=== PATIENT | female | born 1940 | race Caucasian/White ===

== ENCOUNTER → 2017-12-25 09:57 | Outpatient (CLI) | payer MEDICARE, OTHER, SELFPAY ==
--- NOTE | 2017-12-25 | DI.MG.S_ITS ---
BILATERAL DIGITAL SCREENING MAMMOGRAM 3D/2D WITH CAD: 12/25/2017 CLINICAL: Routine screening. Family history of breast cancer. Comparison is made to exams dated: 11/27/2016 mammogram, 11/26/2015 mammogram, and 11/24/2014 mammogram - [facility]. The tissue of both breasts is heterogeneously dense. This may lower the sensitivity of mammography. Current study was also evaluated with a Computer Aided Detection (CAD) system. Of note, per technologist the patient is unable to raise chin or turn her head for MLO views. Tomosynthesis MLO views were attempted but the patient was unable to lift their chin. 2D MLO views were subsequently obtained, with patient's chin projecting over and obscuring the axillae/upper breasts. There is possible architectural distortion in the right breast middle depth upper region seen on the mediolateral oblique view only. No other significant masses, calcifications, or other findings are seen in either breast. IMPRESSION: INCOMPLETE: NEEDS ADDITIONAL IMAGING EVALUATION The possible architectural distortion in the right breast is indeterminate. Additional views with possible ultrasound are recommended. This exam was interpreted at Station ID: [id number]. NOTE: For mammograms, a report in lay terms will be sent to the patient. Approximately 15% of breast malignancies will not be visualized mammographically. In the management of a palpable breast mass, a negative mammogram must not discourage biopsy of a clinically suspicious lesion. Electronically Signed By: Jaydon Cox M.D. ecl/:12/25/2017 23:56:00 letter sent: Additional Imaging Needed ACR BI-RADS Category 0: Incomplete 3340F
== END ==
PROVIDERS: Family Provider Family Medicine; PCP Family Medicine; Visit Provider Family Medicine
DX: Z12.31 Encounter for screening mammogram for malignant neoplasm of breast (principal); Z80.3 Family history of malignant neoplasm of breast
CPT/HCPCS: 77063; 77067

== ENCOUNTER → 2017-12-31 08:13 | Outpatient (CLI) | payer MEDICARE, OTHER, SELFPAY ==
--- NOTE | 2017-12-31 | DI.US.S_ITS ---
PROCEDURE: US RENAL COMPLETE INDICATIONS: GROSS HEMATURIA TECHNIQUE: Real-time scanning was performed of the kidneys and bladder, with image documentation. COMPARISON: None. FINDINGS: Kidneys: Right kidney measures 11.4 cm long; left kidney measures 12.1 cm long. Right renal cortical thickness is 2 cm; left renal cortical thickness is 2 cm. Renal cortical echotexture is within normal limits. No hydronephrosis. There is a nonobstructing echogenic shadowing stone in the superior pole of the right kidney measured 7-8 mm. There are 2 anechoic simple right renal cysts demonstrated measuring up to 5.4 cm and 2.2 cm. Bladder: The urinary bladder was nondistended. Miscellaneous: No free pelvic fluid. IMPRESSION: 1. No evidence of hydronephrosis. 2. Nonobstructing stone within the right kidney measuring approximately 7-8 mm. 3. Nondistention of the urinary bladder limiting evaluation. Dictated by: Suleman Lott M.D. on 12/31/2017 at 7:53 Approved by: Suleman Lott M.D. on 12/31/2017 at 7:56
== END ==
PROVIDERS: Family Provider Family Medicine; PCP Family Medicine; Visit Provider Family Medicine
DX: N20.0 Calculus of kidney (principal); N28.1 Cyst of kidney, acquired; R31.0 Gross hematuria
CPT/HCPCS: 76770

== ENCOUNTER → 2018-01-09 08:44 | Outpatient (CLI) | payer MEDICARE, OTHER, SELFPAY ==
--- NOTE | 2018-01-09 | DI.MG.S_ITS ---
UNILATERAL RIGHT DIGITAL DIAGNOSTIC MAMMOGRAM 3D/2D WITH ADDITIONAL VIEWS: 01/09/2018 CLINICAL: Additional evaluation requested from prior study. Comparison is made to exams dated: 12/25/2017 mammogram, 11/27/2016 mammogram, and 11/26/2015 mammogram - . The tissue of right breast is heterogeneously dense. This may lower the sensitivity of mammography. Previously noted possible architectural distortion in the right breast middle depth upper region seen on the mediolateral oblique view only on comparison screening mammogram resolves with additional views and likely represented superimposition of benign anatomic tissues. No significant masses, calcifications, or other findings are seen in the breast. IMPRESSION: INCOMPLETE: NEEDS ADDITIONAL IMAGING EVALUATION Previously noted possible architectural distortion in the right breast middle depth upper region seen on the mediolateral oblique view only on comparison screening mammogram resolves with additional views and likely represented superimposition of benign anatomic tissues. A targeted ultrasound is recommended for further evaluation. This exam was interpreted at Station ID: [id number]. NOTE: For mammograms, a report in lay terms will be sent to the patient. Approximately 15% of breast malignancies will not be visualized mammographically. In the management of a palpable breast mass, a negative mammogram must not discourage biopsy of a clinically suspicious lesion. Electronically Signed By: Jaydon Cox M.D. ecl/:01/09/2018 09:37:33 letter sent: Additional Imaging Needed ACR BI-RADS Category 0: Incomplete 3340F
--- NOTE | 2018-01-09 | DI.US.S_ITS ---
LIMITED ULTRASOUND OF RIGHT BREAST: 01/09/2018 CLINICAL: Patient returns today to evaluate a density in the right breast. Comparison is made to exams dated: 01/09/2018 mammogram, 12/25/2017 mammogram, 11/27/2016 mammogram, and 11/26/2015 mammogram - [facility]. Real-time and Doppler ultrasound of the right breast upper aspect were performed. Flores scale images of the real-time examination were reviewed. Targeted ultrasound was performed of the upper right breast. No underlying breast mass or abnormality is identified. IMPRESSION: NEGATIVE No sonographic mass or abnormality identified in the imaged upper right breast. There is no sonographic evidence of malignancy in the imaged right breast. Return to annual screening mammography is recommended. This exam was interpreted at Station ID: [id number]. Electronically Signed By: Jaydon Cox M.D. ecl/:01/09/2018 09:40:15 letter sent: Normal Exam Ultrasound BI-RADS: 1 Negative
== END ==
PROVIDERS: PCP Family Medicine; Visit Provider Family Medicine
DX: R92.8 Other abnormal and inconclusive findings on diagnostic imaging of breast (principal)
CPT/HCPCS: 76642; 77065; G0279

== ENCOUNTER → 2018-12-27 12:42 | Outpatient (CLI) | payer MEDICARE, OTHER, SELFPAY ==
--- NOTE | 2018-12-27 | DI.MG.S_ITS ---
BILATERAL DIGITAL SCREENING MAMMOGRAM 3D/2D WITH CAD: 12/27/2018 CLINICAL: Routine screening. Personal history of breast cancer. Comparison is made to exams dated: 01/09/2018 mammogram, 12/25/2017 mammogram, and 11/27/2016 mammogram - [facility]. The tissue of both breasts is heterogeneously dense. This may lower the sensitivity of mammography. Current study was also evaluated with a Computer Aided Detection (CAD) system. There are benign post operative findings in the left breast. No significant masses, calcifications, or other findings are seen in either breast. There has been no significant interval change. IMPRESSION: There is no mammographic evidence of malignancy. A 1 year screening mammogram is recommended. This exam was interpreted at Station ID: [id number]. NOTE: For mammograms, a report in lay terms will be sent to the patient. Approximately 15% of breast malignancies will not be visualized mammographically. In the management of a palpable breast mass, a negative mammogram must not discourage biopsy of a clinically suspicious lesion. Electronically Signed By: Monique farris/dipika:12/27/2018 14:36:14 letter sent: Normal Exam ACR BI-RADS Category 2: Benign Finding(s) 3342F
== END ==
PROVIDERS: PCP Family Medicine; Visit Provider Family Medicine
DX: Z12.31 Encounter for screening mammogram for malignant neoplasm of breast (principal); Z85.3 Personal history of malignant neoplasm of breast
CPT/HCPCS: 77063; 77067

== ENCOUNTER → 2019-01-03 11:34 | Outpatient (CLI) | payer MEDICARE, OTHER, SELFPAY ==
--- NOTE | 2019-01-03 | DI.RAD.S_ITS ---
PROCEDURE: XR KNEE RT 3V INDICATIONS: RIGHT KNEE PAIN TECHNIQUE: 3 views of the knee were acquired. COMPARISON: [facility] [place], SOHEILA, KNEE SERIES RT, 09/04/2016, 11:48. [facility], CR, KNEE 3V LEFT, 08/19/2014, 11:58. [facility], CR, KNEE 1-2 VIEWS LEFT, 05/08/2013, 23:25. FINDINGS: Bones: No definite fractures or dislocations however there is a diagonal lucency extending beneath the medial tibial plateau from near the midline medially and showing no cortical disruption at the medial metadiaphyseal junction. No suspicious bony lesions but there does appear to be a 1 cm radiodense intra-articular loose body just above the patella. On the lateral view the femoral condyle anterior cortex adjacent to this radiodensity has an unusual change in morphology from curvilinear 2 straight AP. A fracture in this area is not seen elsewhere, however.. Soft tissues: No joint effusion. No suspicious soft tissue calcifications. IMPRESSION: The clinical history does not define source of knee pain interpreted whether significant recent trauma has occurred. Presumably the findings discussed above are not patient financial representative of trauma given the absence of a joint effusion. An intra-articular loose body measuring 1 cm is in stable position above the patellar margin on the lateral view. If there is concern for a hidden fracture or ligamentous/meniscal injury followup by knee MRI may be warranted. If management of an intra-articular loose body on the right would be anticipated contrast injection MR arthrography would be the appropriate next step. Dictated by: Min Lizama M.D. on 01/03/2019 at 12:05 Approved by: Min Lizama M.D. on 01/03/2019 at 12:11
== END ==
PROVIDERS: PCP Family Medicine; Visit Provider Family Medicine
DX: M25.561 Pain in right knee (principal)
CPT/HCPCS: 73562

== ENCOUNTER 2019-03-06 10:46 | Outpatient (CLI) | payer MEDICARE, OTHER, SELFPAY | END 2019-03-06 16:00 | LOC: PHYS 10:48 | PROVIDERS: PCP Family Medicine; Visit Provider Family Medicine | DX: G62.9 Polyneuropathy, unspecified (principal); R20.0 Anesthesia of skin | CPT/HCPCS: 95885; 95886; 95911 ==

== ENCOUNTER 2019-05-06 14:15 | Outpatient (RCR) | payer MEDICARE, OTHER, SELFPAY ==
--- NOTE | 2019-03-18 16:38 | PT.OIE ---
Current Diagnoses Polyneuropathy, unspecified (03/18/19) Muscle wasting and atrophy, not elsewhere classified, unspecified hand (03/18/19) Visit Care Team Role Provider Type Gio Solis MD Attending Provider Physician Primary Care Provider Specialty: [facility] Address: [address] [place] [address], [place], [address] Email: [email or web address] Physical Therapy Initial Evaluation PT-OP-A Visit Information Start: 03/11/19 18:08 Freq: Status: Active Protocol: Document 03/18/19 13:37 LRN (Rec: 03/18/19 15:07 LRN [id number]) Out-Patient Physical Therapy Visit Information Visit Information Visit Type Initial Evaluation Visit Start Time 13:37 Visit Stop Time 14:28 Total Visit Minutes 51 Visit Number 1 Number of BREAKER LAYER Visits 0 Evaluation Information Evaluation Date 03/18/19 Precautions Precautions Breast CA - 6 yr ago with biopsy, controlled with Tamoxafin, Arthritis, Diabetes II, L TKA - 4 yrs ago, Controlled High Blood pressure , . PT-OP-B Current Condition Start: 03/11/19 18:08 Freq: Status: Active Protocol: Document 03/18/19 13:37 LRN (Rec: 03/18/19 15:07 LRN [id number]) Current Condition History of Current Condition Onset Date 3 months ago neuropathy of the hands Current Complaints Numbness of hands. Tingling in the feet since surgery of L TKA (~4 yrs ago) History of Current Condition Neuropathy of hands is worst problem than the feet. Reports she is not limited by the tingling in her feet. She has had increasing difficulty holding small objects. She is walking and she will just drop what she if holding. Prior Treatments and Tests EMG study on hands, results unknown. Treatment Goals Patient/Caregiver Goals Pt goal is to stop the dropping of things. Prior Functional Status Baseline Function- ADL's Modified Independent Baseline Function- Mobility Independent Baseline Function- Other Able to hold onto objects 6 months to a 1 yrs ago. Current Functional Impairments (Reported) Functional Limitations- ADL's Spouse puts pt's socks and shoes on. Can't get up from floor because she can't get up on knees to get up. Must use hands to transfer sit to stand. Functional Limitations- Mobility/Gait Gait with SPC, antalgic gait with short stance time on the R. Personal Factors Other Personal Factors That May Effect Spouse must assist with Therapy/Recovery donning socks and shoes. Pt reports recently being diagnosed with L carpal tunnel syndrome. PT-OP-C Subjective Start: 03/11/19 18:08 Freq: Status: Active Protocol: Document 03/18/19 13:37 LRN (Rec: 03/18/19 16:16 LRN [id number]) OP-PT Pain Assessment Pain Assessment Grid Paper Pain Assessment Grid Completed Yes Comments Pain Comments Pt notes a little pain at L hand on lateral side, rated 0/ 10. PT-OP-G Mobility & Gait Start: 03/11/19 18:08 Freq: Status: Active Protocol: Document 03/18/19 13:37 LRN (Rec: 03/18/19 15:07 LRN [id number]) OP Mobility Evaluation Transfers Sit to Stand Requires use of hands to assist. Holds R leg straight while transferring. OP Gait Assessment Gait Gait Assistance Required: Independent Distance (Feet) 100 Able to Maintain Weight Bearing Status Yes During Gait Assistive Devices Assistive Device Straight Cane Gait Deviations General Gait Pattern Antalgic,Decreased Stride Length,Flexed Trunk,Narrow Based Gait PT-OP-J Posture/Palpation/Skin Start: 03/11/19 18:08 Freq: Status: Active Protocol: Document 03/18/19 13:37 LRN (Rec: 03/18/19 15:07 LRN [id number]) Skin Assessment Other Assessments Skin Assessment Comments Pt skin is dry and scaly at knuckles. She has a bandaid around R index finger. PT-OP-K Range of Motion Start: 03/11/19 18:08 Freq: Status: Active Protocol: Document 03/18/19 13:37 LRN (Rec: 03/18/19 15:07 LRN [id number]) Elbow/Forearm Range of Motion Elbow/Forearm Left Active ROM Testing Position Sitting Pronation (degrees) 90 Supination (degrees) 45 Right Active ROM Testing Position Sitting Pronation (degrees) 90 Supination (degrees) 45 Wrist Goniometric Range of Motion Wrist Left Flexion Active (degrees) 35 Extension Active (degrees) 45 Right Flexion Active (degrees) 45 Extension Active (degrees) 45 ROM Limitations Wrist Limitations of Range of Motion Soft Tissue Tightness Finger Goniometric Range of Motion Finger ROM Limitations Finger ROM Limitations Soft Tissue Tightness,Bony Restriction Comments Flexion of MCP joints: generally 90 deg's Flexion of PIP joints: generally 45 deg's Flexion DIP joints: Variable 0 -45 deg's. Finger AD is normal except for R hand 5th digit lacks ~5 deg 's. PT-OP-M Strength Start: 03/11/19 18:08 Freq: Status: Active Protocol: Document 03/18/19 13:37 LRN (Rec: 03/18/19 16:16 LRN [id number]) Wrist Strength Wrist Manual Muscle Testing Left Flexion (C7) 5 Normal Extension (C6) 5 Normal Right Flexion (C7) 5 Normal Extension (C6) 5 Normal Finger/Thumb Strength Finger Manual Muscle Testing Right Fifth Flexion (fingers C8) 3 Fair Adduction 1 Trace Abduction (fingers T1) 2 Poor Hand Cane Cutter/Pinch Strength Hand Dominance Hand Dominance Right Hand Strength Right Cane Cutter (lbs) 23.6 Lateral Pinch (lbs) 6.7 Comments Cane Cutter with 3 trials (kg): 12, 10, 10 Lateral Pinch with index finger (kg): 3 Pt was not able to perform a pinch motion, only lateral pinch. Left Cane Cutter (lbs) 28 Lateral Pinch (lbs) 6.7 Comments Cane Cutter with 3 trials (kg): 14, 10, 14 Pinch with index finger (kg): 3 PT-OP-T Assessment and Plan Start: 03/11/19 18:08 Freq: Status: Active Protocol: Document 03/18/19 13:37 LRN (Rec: 03/18/19 15:07 [facility] [id number]) Physical Therapy Assessment Rehab Potential Rehabilitation Potential Fair Evaluation Complexity Number of Personal Factors/Comorbidities 3 or More Number of Body Systems Impaired 4 or More Clinical Presentation at Evaluation Stable Impairments Impairments ROM,Sensation,Soft Tissue Mobility,Strength Goals Decreased R hand strength Impairment Weakness of intrinsics for finger AD/AB and pinch lens generator Detention Goal (LTG) Pt will demonstrate improved intrinsic hand strength with a reported decrease in ability to hold objects while walking. LTG Duration 05/17/19 Decreased finger mobility Impairment Pt unable to make a fist to hold objects firmly Short Term Goal (STG) Pt will be able to lens generator with finger tips at mid palm rather than lower 1/3 of palm. STG Duration 04/16/18 Detention Goal (LTG) Pt will report abililty to hold objects and walk without dropping. LTG Duration 05/17/19 Two Impairment Lacks appropriate self care HEP Detention Goal (LTG) Pt will be independent with a self care HEP LTG Duration 05/17/19 Assessment Summary Assessment Pt presents with neuropathy of the hands and feet. The pt does not feel the neuropathy of the feet are limiting her functionally at this time. She does however report frustration at her inability to hold onto objects, especially with walking. She would like to focus therapy on her hands to improve ability to hold small objects and to stop dropping things. The pt will benefit from skilled physical therapy to improve hand/finger mobility and pinch lens generator, and to improve intrinsic hand strength. Physical Therapy Plan Frequency and Duration Frequency of Treatment 2x/Week Duration of Treatment 8 weeks Plan of Care Start Date 03/18/19 Plan of Care End Date 05/17/19 Therapeutic Interventions Therapeutic Interventions Home Exercise Program,Joint Mobilizations,Manual Therapy, Patient/Caregiver Education, Self-Care/Home Management,Soft Tissue Mobilization, Therapeutic Exercises Modalities Hot Packs,Paraffin Bath Next Visit Focus/Plan Next Note Type Treatment Note Next Visit Plan Assess tolerance to hot/cold, start with MH to hands and if tolerated well, try paraffin dip the following visit (if sensation to hot/cold is good) . Start finger flex ROM ex's and intrinsic & ext strengthening. Pt to have HEP to progress at home towards her goal.
--- NOTE | 2019-03-18 16:38 | PT.OPPOC ---
Current Diagnoses Polyneuropathy, unspecified (03/18/19) Muscle wasting and atrophy, not elsewhere classified, unspecified hand (03/18/19) Visit Care Team Role Provider Type Gio Solis MD Attending Provider Physician Primary Care Provider Specialty: [facility] Address: [address] [place] [address], [facility] [place], [address] Email: [email or web address] Plan Of Care PT-OP-T Assessment and Plan Start: 03/11/19 18:08 Freq: Status: Active Protocol: Document 03/18/19 13:37 LRN (Rec: 03/18/19 15:07 LRN [id number]) Physical Therapy Assessment Rehab Potential Rehabilitation Potential Fair Evaluation Complexity Number of Personal Factors/Comorbidities 3 or More Number of Body Systems Impaired 4 or More Clinical Presentation at Evaluation Stable Impairments Impairments ROM,Sensation,Soft Tissue Mobility,Strength Goals Decreased R hand strength Impairment Weakness of intrinsics for finger AD/AB and pinch straw hat plunger operator Penitentiary Goal (LTG) Pt will demonstrate improved intrinsic hand strength with a reported decrease in ability to hold objects while walking. LTG Duration 05/17/19 Decreased finger mobility Impairment Pt unable to make a fist to hold objects firmly Short Term Goal (STG) Pt will be able to straw hat plunger operator with finger tips at mid palm rather than lower 1/3 of palm. STG Duration 04/16/18 Penitentiary Goal (LTG) Pt will report abililty to hold objects and walk without dropping. LTG Duration 05/17/19 Two Impairment Lacks appropriate self care HEP Penitentiary Goal (LTG) Pt will be independent with a self care HEP LTG Duration 05/17/19 Assessment Summary Assessment Pt presents with neuropathy of the hands and feet. The pt does not feel the neuropathy of the feet are limiting her functionally at this time. She does however report frustration at her inability to hold onto objects, especially with walking. She would like to focus therapy on her hands to improve ability to hold small objects and to stop dropping things. The pt will benefit from skilled physical therapy to improve hand/finger mobility and pinch straw hat plunger operator, and to improve intrinsic hand strength. Physical Therapy Plan Frequency and Duration Frequency of Treatment 2x/Week Duration of Treatment 8 weeks Plan of Care Start Date 03/18/19 Plan of Care End Date 05/17/19 Therapeutic Interventions Therapeutic Interventions Home Exercise Program,Joint Mobilizations,Manual Therapy, Patient/Caregiver Education, Self-Care/Home Management,Soft Tissue Mobilization, Therapeutic Exercises Modalities Hot Packs,Paraffin Bath Next Visit Focus/Plan Next Note Type Treatment Note Next Visit Plan Assess tolerance to hot/cold, start with MH to hands and if tolerated well, try paraffin dip the following visit (if sensation to hot/cold is good) . Start finger flex ROM ex's and intrinsic & ext strengthening. Pt to have HEP to progress at home towards her goal. Plan of Care Dates Plan of Care Start Date 03/18/19 Plan of Care End Date 05/17/19
--- NOTE | 2019-03-20 08:32 | PT-OP ANOTE ---
Per telephone message on 03/19/19: Arianna Solis office reports pt is to be treated for neuropathy of the hands and if she needs treatment for her knee he would agree to adding this to her referral.
--- NOTE | 2019-03-20 12:43 | PT.OTN ---
Current Diagnoses Polyneuropathy, unspecified (03/20/19) Muscle wasting and atrophy, not elsewhere classified, unspecified hand (03/20/19) Physical Therapy Treatment Note PT-OP-A Visit Information Start: 03/11/19 18:08 Freq: Status: Active Protocol: Document 03/20/19 11:38 LRN (Rec: 03/20/19 12:42 LRN [id number]) Out-Patient Physical Therapy Visit Information Visit Information Visit Type Treatment Note Visit Start Time 11:38 Visit Stop Time 12:29 Total Visit Minutes 49 Visit Number 2 Number of NETWORK ACCOUNT MANAGER Visits 0 Evaluation Information Evaluation Date 03/18/19 Precautions Precautions Breast CA - 6 yr ago with biopsy, controlled with Tamoxafin, Arthritis, Diabetes II, L TKA - 4 yrs ago, Controlled High Blood pressure , . PT-OP-B Current Condition Start: 03/11/19 18:08 Freq: Status: Active Protocol: Document 03/18/19 13:37 LRN (Rec: 03/18/19 15:07 LRN [id number]) Current Condition History of Current Condition Onset Date 3 months ago neuropathy of the hands Current Complaints Numbness of hands. Tingling in the feet since surgery of L TKA (~4 yrs ago) History of Current Condition Neuropathy of hands is worst problem than the feet. Reports she is not limited by the tingling in her feet. She has had increasing difficulty holding small objects. She is walking and she will just drop what she if holding. Prior Treatments and Tests EMG study on hands, results unknown. Treatment Goals Patient/Caregiver Goals Pt goal is to stop the dropping of things. Prior Functional Status Baseline Function- ADL's Modified Independent Baseline Function- Mobility Independent Baseline Function- Other Able to hold onto objects 6 months to a 1 yrs ago. Current Functional Impairments (Reported) Functional Limitations- ADL's Spouse puts pt's socks and shoes on. Can't get up from floor because she can't get up on knees to get up. Must use hands to transfer sit to stand. Functional Limitations- Mobility/Gait Gait with SPC, antalgic gait with short stance time on the R. Personal Factors Other Personal Factors That May Effect Spouse must assist with Therapy/Recovery donning socks and shoes. Pt reports recently being diagnosed with L carpal tunnel syndrome. PT-OP-C Subjective Start: 03/11/19 18:08 Freq: Status: Active Protocol: Document 03/20/19 11:38 LRN (Rec: 03/20/19 12:42 LRN [id number]) OP-PT Subjective Patient Comments Patient Comments Could use a cracker since she didn't eat breakfast this morning. Sometimes don't eat until noon. PT-OP-G Mobility & Gait Start: 03/11/19 18:08 Freq: Status: Active Protocol: Document 03/18/19 13:37 LRN (Rec: 03/18/19 15:07 LRN [id number]) OP Mobility Evaluation Transfers Sit to Stand Requires use of hands to assist. Holds R leg straight while transferring. OP Gait Assessment Gait Gait Assistance Required: Independent Distance (Feet) 100 Able to Maintain Weight Bearing Status Yes During Gait Assistive Devices Assistive Device Straight Cane Gait Deviations General Gait Pattern Antalgic,Decreased Stride Length,Flexed Trunk,Narrow Based Gait PT-OP-J Posture/Palpation/Skin Start: 03/11/19 18:08 Freq: Status: Active Protocol: Document 03/18/19 13:37 LRN (Rec: 03/18/19 15:07 LRN [id number]) Skin Assessment Other Assessments Skin Assessment Comments Pt skin is dry and scaly at knuckles. She has a bandaid around R index finger. PT-OP-K Range of Motion Start: 03/11/19 18:08 Freq: Status: Active Protocol: Document 03/18/19 13:37 LRN (Rec: 03/18/19 15:07 LRN [id number]) Elbow/Forearm Range of Motion Elbow/Forearm Left Active ROM Testing Position Sitting Pronation (degrees) 90 Supination (degrees) 45 Right Active ROM Testing Position Sitting Pronation (degrees) 90 Supination (degrees) 45 Wrist Goniometric Range of Motion Wrist Left Flexion Active (degrees) 35 Extension Active (degrees) 45 Right Flexion Active (degrees) 45 Extension Active (degrees) 45 ROM Limitations Wrist Limitations of Range of Motion Soft Tissue Tightness Finger Goniometric Range of Motion Finger ROM Limitations Finger ROM Limitations Soft Tissue Tightness,Bony Restriction Comments Flexion of MCP joints: generally 90 deg's Flexion of PIP joints: generally 45 deg's Flexion DIP joints: Variable 0 -45 deg's. Finger AD is normal except for R hand 5th digit lacks ~5 deg 's. PT-OP-M Strength Start: 03/11/19 18:08 Freq: Status: Active Protocol: Document 03/18/19 13:37 LRN (Rec: 03/18/19 16:16 LRN [id number]) Wrist Strength Wrist Manual Muscle Testing Left Flexion (C7) 5 Normal Extension (C6) 5 Normal Right Flexion (C7) 5 Normal Extension (C6) 5 Normal Finger/Thumb Strength Finger Manual Muscle Testing Right Fifth Flexion (fingers C8) 3 Fair Adduction 1 Trace Abduction (fingers T1) 2 Poor Hand Dive Superintendent/Pinch Strength Hand Dominance Hand Dominance Right Hand Strength Right Dive Superintendent (lbs) 23.6 Lateral Pinch (lbs) 6.7 Comments Dive Superintendent with 3 trials (kg): 12, 10, 10 Lateral Pinch with index finger (kg): 3 Pt was not able to perform a pinch motion, only lateral pinch. Left Dive Superintendent (lbs) 28 Lateral Pinch (lbs) 6.7 Comments Dive Superintendent with 3 trials (kg): 14, 10, 14 Pinch with index finger (kg): 3 PT-OP-Q Treatments Start: 03/11/19 18:08 Freq: Status: Active Protocol: Document 03/20/19 11:38 LRN (Rec: 03/20/19 12:42 LRN [id number]) Therapeutic Exercises Supine Exercises AROM PIP/DIP flx/ext intrinsics Supine Exercise Name PIP/DIP flx/ext Side bilateral Reps/Minutes 8' Comments Intrinsic strengthening & finger ROM, extra time for training Hands open/close Supine Exercise Name Hands open/close Side bilateral Reps/Minutes 6' Sitting Exercises Wrist Extension Sitting Exercise Name Wrist Extension Side bilateral Reps/Minutes 15 x Wrist flexion Sitting Exercise Name Wrist flexion Side bilateral Reps/Minutes 15x Finger/thumb AB/AD Sitting Exercise Name Finger/thumb AB/AD AROM/PROM Side bilateral Reps/Minutes 10' Comments Extrea time taken for training Finger MCP flx/ext Sitting Exercise Name Finger MCP flx/ext AROM Side bilateral Reps/Minutes 8' Comments Extra time taken for training Self-Care/Home Management Treatment Education Patient Education Home Exercise Program Activities Self-Care/Home Management Activities Issued & reviewed HEP: Finger flex/ext, & AB/AD, gripping & full ext exercises. PT-OP-R Modalities Start: 03/20/19 08:25 Freq: Status: Active Protocol: Document 03/20/19 11:38 LRN (Rec: 03/20/19 12:42 LRN [id number]) Hot Pack/Cold Pack Treatment Cold Pack Location Hands Hot Pack Location Hands Patient Position Supine Comments Used during making of HEP & while exercising opposite hand . PT-OP-T Assessment and Plan Start: 03/11/19 18:08 Freq: Status: Active Protocol: Document 03/20/19 11:38 LRN (Rec: 03/20/19 12:42 LRN [id number]) Physical Therapy Assessment Assessment Summary Assessment Pt appears to have a good sensation to recognize hot/ cold of hands; therefore will use paraffin dip next appt if no skin abrasions. Pt has weak finger extensors, and R had digiti minimi AD and indicis AB. 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 Physical Therapy Plan Frequency and Duration Frequency of Treatment 2x/Week Duration of Treatment 8 weeks Plan of Care Start Date 03/18/19 Plan of Care End Date 05/17/19 Next Visit Focus/Plan Next Note Type Treatment Note Next Visit Plan Try paraffin dip the following visit. Start finger ext strengthening and passive stretch to wrist flexors. Continue finger flex ROM ex's and intrinsic & ext strengthening. Pt to have HEP to progress at home towards her goal.
--- NOTE | 2019-03-25 16:02 | PT.OTN ---
Current Diagnoses Polyneuropathy, unspecified (03/25/19) Muscle wasting and atrophy, not elsewhere classified, unspecified hand (03/25/19) Physical Therapy Treatment Note PT-OP-A Visit Information Start: 03/11/19 18:08 Freq: Status: Active Protocol: Document 03/25/19 15:06 LRN (Rec: 03/25/19 15:59 LRN [id number]) Out-Patient Physical Therapy Visit Information Visit Information Visit Type Treatment Note Visit Start Time 15:06 Visit Stop Time 15:47 Total Visit Minutes 41 Visit Number 3 Number of REPAIR SERVICE DISPATCHER Visits 0 Evaluation Information Evaluation Date 03/18/19 Precautions Precautions Breast CA - 6 yr ago with biopsy, controlled with Tamoxafin, Arthritis, Diabetes II, L TKA - 4 yrs ago, Controlled High Blood pressure , . PT-OP-B Current Condition Start: 03/11/19 18:08 Freq: Status: Active Protocol: Document 03/18/19 13:37 LRN (Rec: 03/18/19 15:07 LRN [id number]) Current Condition History of Current Condition Onset Date 3 months ago neuropathy of the hands Current Complaints Numbness of hands. Tingling in the feet since surgery of L TKA (~4 yrs ago) History of Current Condition Neuropathy of hands is worst problem than the feet. Reports she is not limited by the tingling in her feet. She has had increasing difficulty holding small objects. She is walking and she will just drop what she if holding. Prior Treatments and Tests EMG study on hands, results unknown. Treatment Goals Patient/Caregiver Goals Pt goal is to stop the dropping of things. Prior Functional Status Baseline Function- ADL's Modified Independent Baseline Function- Mobility Independent Baseline Function- Other Able to hold onto objects 6 months to a 1 yrs ago. Current Functional Impairments (Reported) Functional Limitations- ADL's Spouse puts pt's socks and shoes on. Can't get up from floor because she can't get up on knees to get up. Must use hands to transfer sit to stand. Functional Limitations- Mobility/Gait Gait with SPC, antalgic gait with short stance time on the R. Personal Factors Other Personal Factors That May Effect Spouse must assist with Therapy/Recovery donning socks and shoes. Pt reports recently being diagnosed with L carpal tunnel syndrome. PT-OP-C Subjective Start: 03/11/19 18:08 Freq: Status: Active Protocol: Document 03/25/19 15:06 LRN (Rec: 03/25/19 15:59 LRN [id number]) OP-PT Subjective Patient Comments Patient Comments States her hands feel the same . PT-OP-G Mobility & Gait Start: 03/11/19 18:08 Freq: Status: Active Protocol: Document 03/18/19 13:37 LRN (Rec: 03/18/19 15:07 LRN [id number]) OP Mobility Evaluation Transfers Sit to Stand Requires use of hands to assist. Holds R leg straight while transferring. OP Gait Assessment Gait Gait Assistance Required: Independent Distance (Feet) 100 Able to Maintain Weight Bearing Status Yes During Gait Assistive Devices Assistive Device Straight Cane Gait Deviations General Gait Pattern Antalgic,Decreased Stride Length,Flexed Trunk,Narrow Based Gait PT-OP-J Posture/Palpation/Skin Start: 03/11/19 18:08 Freq: Status: Active Protocol: Document 03/18/19 13:37 LRN (Rec: 03/18/19 15:07 LRN [id number]) Skin Assessment Other Assessments Skin Assessment Comments Pt skin is dry and scaly at knuckles. She has a bandaid around R index finger. PT-OP-K Range of Motion Start: 03/11/19 18:08 Freq: Status: Active Protocol: Document 03/18/19 13:37 LRN (Rec: 03/18/19 15:07 LRN [id number]) Elbow/Forearm Range of Motion Elbow/Forearm Left Active ROM Testing Position Sitting Pronation (degrees) 90 Supination (degrees) 45 Right Active ROM Testing Position Sitting Pronation (degrees) 90 Supination (degrees) 45 Wrist Goniometric Range of Motion Wrist Left Flexion Active (degrees) 35 Extension Active (degrees) 45 Right Flexion Active (degrees) 45 Extension Active (degrees) 45 ROM Limitations Wrist Limitations of Range of Motion Soft Tissue Tightness Finger Goniometric Range of Motion Finger ROM Limitations Finger ROM Limitations Soft Tissue Tightness,Bony Restriction Comments Flexion of MCP joints: generally 90 deg's Flexion of PIP joints: generally 45 deg's Flexion DIP joints: Variable 0 -45 deg's. Finger AD is normal except for R hand 5th digit lacks ~5 deg 's. PT-OP-M Strength Start: 03/11/19 18:08 Freq: Status: Active Protocol: Document 03/18/19 13:37 LRN (Rec: 03/18/19 16:16 LRN [id number]) Wrist Strength Wrist Manual Muscle Testing Left Flexion (C7) 5 Normal Extension (C6) 5 Normal Right Flexion (C7) 5 Normal Extension (C6) 5 Normal Finger/Thumb Strength Finger Manual Muscle Testing Right Fifth Flexion (fingers C8) 3 Fair Adduction 1 Trace Abduction (fingers T1) 2 Poor Hand Keyboard Instrument Tuner/Pinch Strength Hand Dominance Hand Dominance Right Hand Strength Right Keyboard Instrument Tuner (lbs) 23.6 Lateral Pinch (lbs) 6.7 Comments Keyboard Instrument Tuner with 3 trials (kg): 12, 10, 10 Lateral Pinch with index finger (kg): 3 Pt was not able to perform a pinch motion, only lateral pinch. Left Keyboard Instrument Tuner (lbs) 28 Lateral Pinch (lbs) 6.7 Comments Keyboard Instrument Tuner with 3 trials (kg): 14, 10, 14 Pinch with index finger (kg): 3 PT-OP-Q Treatments Start: 03/11/19 18:08 Freq: Status: Active Protocol: Document 03/25/19 15:06 LRN (Rec: 03/25/19 15:59 LRN [id number]) Therapeutic Exercises Supine Exercises AROM PIP/DIP flx/ext intrinsics Supine Exercise Name PIP/DIP flx/ext Side bilateral Reps/Minutes 8' Comments Intrinsic strengthening & finger ROM, extra time for training Hands open/close Supine Exercise Name Hands open/close Side bilateral Reps/Minutes 6' Sitting Exercises Wrist Extension Sitting Exercise Name Wrist Extension Side bilateral Reps/Minutes 10 x Wrist flexion Sitting Exercise Name Wrist flexion Side bilateral Reps/Minutes 10x Finger/thumb AB/AD Sitting Exercise Name Finger/thumb AB/AD AROM/PROM Side bilateral Reps/Minutes 5 Finger MCP flx/ext Sitting Exercise Name Finger MCP flx/ext AROM Side bilateral Reps/Minutes 6' Comments Extra time taken for training PT-OP-R Modalities Start: 03/20/19 08:25 Freq: Status: Active Protocol: Document 03/25/19 15:06 LRN (Rec: 03/25/19 15:59 LRN [id number]) Paraffin Bath Treatment Right Hand Treatment Technique Dip-immersion Wax Temperature (degrees F) 120 Number Wax Layers (layers) 5 Duration (minutes) 5 Patient Tolerance Good Left Hand Treatment Technique Dip-immersion Wax Temperature (degrees F) 120 Number Wax Layers (layers) 5 Duration (minutes) 5 Patient Tolerance Good PT-OP-T Assessment and Plan Start: 03/11/19 18:08 Freq: Status: Active Protocol: Document 03/25/19 15:06 LRN (Rec: 03/25/19 15:59 LRN [id number]) Physical Therapy Assessment Assessment Summary Assessment L hand tingly with fingers pointing upward, Once tingly fingers stayed tingly. R little finger lacks AD and jael PIP & DIP are restricted in flex. Pt has poor coordination and has difficulty doing intrinsic hand exercises. Pt reportedly has been sick and not doing her hep. Physical Therapy Plan Frequency and Duration Frequency of Treatment 2x/Week Duration of Treatment 8 weeks Plan of Care Start Date 03/18/19 Plan of Care End Date 05/17/19 Next Visit Focus/Plan Next Note Type Treatment Note Next Visit Plan Start finger ext strengthening . Paraffin dip followed by passive stretch to wrist flexors. Continue finger flex ROM ex's and intrinsic & ext strengthening. Pt to have HEP to progress at home towards her goal.
--- NOTE | 2019-03-27 12:16 | PT.OTN ---
Current Diagnoses Polyneuropathy, unspecified (03/27/19) Muscle wasting and atrophy, not elsewhere classified, unspecified hand (03/27/19) Physical Therapy Treatment Note PT-OP-A Visit Information Start: 03/11/19 18:08 Freq: Status: Active Protocol: Document 03/27/19 11:22 LRN (Rec: 03/27/19 12:15 LRN [id number]) Out-Patient Physical Therapy Visit Information Visit Information Visit Type Treatment Note Visit Start Time 11:22 Visit Stop Time 12:05 Total Visit Minutes 43 Visit Number 4 Number of RN FLOAT Visits 0 Evaluation Information Evaluation Date 03/18/19 Precautions Precautions Breast CA - 6 yr ago with biopsy, controlled with Tamoxafin, Arthritis, Diabetes II, L TKA - 4 yrs ago, Controlled High Blood pressure , . PT-OP-B Current Condition Start: 03/11/19 18:08 Freq: Status: Active Protocol: Document 03/18/19 13:37 LRN (Rec: 03/18/19 15:07 LRN [id number]) Current Condition History of Current Condition Onset Date 3 months ago neuropathy of the hands Current Complaints Numbness of hands. Tingling in the feet since surgery of L TKA (~4 yrs ago) History of Current Condition Neuropathy of hands is worst problem than the feet. Reports she is not limited by the tingling in her feet. She has had increasing difficulty holding small objects. She is walking and she will just drop what she if holding. Prior Treatments and Tests EMG study on hands, results unknown. Treatment Goals Patient/Caregiver Goals Pt goal is to stop the dropping of things. Prior Functional Status Baseline Function- ADL's Modified Independent Baseline Function- Mobility Independent Baseline Function- Other Able to hold onto objects 6 months to a 1 yrs ago. Current Functional Impairments (Reported) Functional Limitations- ADL's Spouse puts pt's socks and shoes on. Can't get up from floor because she can't get up on knees to get up. Must use hands to transfer sit to stand. Functional Limitations- Mobility/Gait Gait with SPC, antalgic gait with short stance time on the R. Personal Factors Other Personal Factors That May Effect Spouse must assist with Therapy/Recovery donning socks and shoes. Pt reports recently being diagnosed with L carpal tunnel syndrome. PT-OP-C Subjective Start: 03/11/19 18:08 Freq: Status: Active Protocol: Document 03/27/19 11:22 LRN (Rec: 03/27/19 12:15 LRN [id number]) OP-PT Subjective Patient Comments Patient Comments Fingers are moving a little more. Hasn't dropped anything today. PT-OP-G Mobility & Gait Start: 03/11/19 18:08 Freq: Status: Active Protocol: Document 03/18/19 13:37 LRN (Rec: 03/18/19 15:07 LRN [id number]) OP Mobility Evaluation Transfers Sit to Stand Requires use of hands to assist. Holds R leg straight while transferring. OP Gait Assessment Gait Gait Assistance Required: Independent Distance (Feet) 100 Able to Maintain Weight Bearing Status Yes During Gait Assistive Devices Assistive Device Straight Cane Gait Deviations General Gait Pattern Antalgic,Decreased Stride Length,Flexed Trunk,Narrow Based Gait PT-OP-J Posture/Palpation/Skin Start: 03/11/19 18:08 Freq: Status: Active Protocol: Document 03/18/19 13:37 LRN (Rec: 03/18/19 15:07 LRN [id number]) Skin Assessment Other Assessments Skin Assessment Comments Pt skin is dry and scaly at knuckles. She has a bandaid around R index finger. PT-OP-K Range of Motion Start: 03/11/19 18:08 Freq: Status: Active Protocol: Document 03/18/19 13:37 LRN (Rec: 03/18/19 15:07 LRN [id number]) Elbow/Forearm Range of Motion Elbow/Forearm Left Active ROM Testing Position Sitting Pronation (degrees) 90 Supination (degrees) 45 Right Active ROM Testing Position Sitting Pronation (degrees) 90 Supination (degrees) 45 Wrist Goniometric Range of Motion Wrist Left Flexion Active (degrees) 35 Extension Active (degrees) 45 Right Flexion Active (degrees) 45 Extension Active (degrees) 45 ROM Limitations Wrist Limitations of Range of Motion Soft Tissue Tightness Finger Goniometric Range of Motion Finger ROM Limitations Finger ROM Limitations Soft Tissue Tightness,Bony Restriction Comments Flexion of MCP joints: generally 90 deg's Flexion of PIP joints: generally 45 deg's Flexion DIP joints: Variable 0 -45 deg's. Finger AD is normal except for R hand 5th digit lacks ~5 deg 's. PT-OP-M Strength Start: 03/11/19 18:08 Freq: Status: Active Protocol: Document 03/18/19 13:37 LRN (Rec: 03/18/19 16:16 LRN [id number]) Wrist Strength Wrist Manual Muscle Testing Left Flexion (C7) 5 Normal Extension (C6) 5 Normal Right Flexion (C7) 5 Normal Extension (C6) 5 Normal Finger/Thumb Strength Finger Manual Muscle Testing Right Fifth Flexion (fingers C8) 3 Fair Adduction 1 Trace Abduction (fingers T1) 2 Poor Hand Abrasive Worker/Pinch Strength Hand Dominance Hand Dominance Right Hand Strength Right Abrasive Worker (lbs) 23.6 Lateral Pinch (lbs) 6.7 Comments Abrasive Worker with 3 trials (kg): 12, 10, 10 Lateral Pinch with index finger (kg): 3 Pt was not able to perform a pinch motion, only lateral pinch. Left Abrasive Worker (lbs) 28 Lateral Pinch (lbs) 6.7 Comments Abrasive Worker with 3 trials (kg): 14, 10, 14 Pinch with index finger (kg): 3 PT-OP-Q Treatments Start: 03/11/19 18:08 Freq: Status: Active Protocol: Document 03/27/19 11:22 LRN (Rec: 03/27/19 12:15 LRN [id number]) Therapeutic Exercises Supine Exercises AROM PIP/DIP flx/ext intrinsics Supine Exercise Name PIP/DIP flx/ext Side bilateral Reps/Minutes 8' Comments Intrinsic strengthening & finger ROM, extra time for training Sitting Exercises Finger Extension Sitting Exercise Name Finger extension Side bilateral Resistance rubberband Reps/Minutes 12' Comments Pt needed a lot of training to perform the ex properly Wrist Extension Sitting Exercise Name Active wrist ext Side bilateral Reps/Minutes 10x Wrist flexion Sitting Exercise Name 1' Stretch or wrist flexors ( elbow bent and straight) Side bilateral Reps/Minutes 1 stretch each side Finger MCP flx/ext Sitting Exercise Name Finger MCP flx/ext AROM Side bilateral Reps/Minutes 6' Comments Extra time taken for training Self-Care/Home Management Treatment Education Patient Education Home Exercise Program Activities Self-Care/Home Management Activities Pt luisa picture of finger ext exercise to help her remember the exercise. Pt took extra time to draw. Reviewed previous HEP and pt made written changes as needed. PT-OP-R Modalities Start: 03/20/19 08:25 Freq: Status: Active Protocol: Document 03/25/19 15:06 LRN (Rec: 03/25/19 15:59 LRN [id number]) Paraffin Bath Treatment Right Hand Treatment Technique Dip-immersion Wax Temperature (degrees F) 120 Number Wax Layers (layers) 5 Duration (minutes) 5 Patient Tolerance Good Left Hand Treatment Technique Dip-immersion Wax Temperature (degrees F) 120 Number Wax Layers (layers) 5 Duration (minutes) 5 Patient Tolerance Good PT-OP-T Assessment and Plan Start: 03/11/19 18:08 Freq: Status: Active Protocol: Document 03/27/19 11:22 LRN (Rec: 03/27/19 12:15 LRN [id number]) Physical Therapy Assessment Assessment Summary Assessment R hand: digits 3 and 4 in flexion contracture at PIP joints. Pt requires a lot of education on how to perform finger exers and appears to have trouble coordinating the activity and remembering how to perform. She has difficulty processing instructions at time; therefore taking extra time for education and training. Physical Therapy Plan Frequency and Duration Frequency of Treatment 2x/Week Duration of Treatment 8 weeks Plan of Care Start Date 03/18/19 Plan of Care End Date 05/17/19 Next Visit Focus/Plan Next Note Type Treatment Note Next Visit Plan Review finger ext strengthening, f/b Paraffin dip and passive stretch to wrist flexors. Continue finger flex ROM ex's and intrinsic & ext strengthening. HEP to progress at home towards her goal.
--- NOTE | 2019-04-01 14:30 | PT.OTN ---
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 Tingling in the feet since surgery of L TKA (~4 yrs ago) History of Current Condition Neuropathy of hands is worst problem than the feet. Reports she is not limited by the tingling in her feet. She has had increasing difficulty holding small objects. She is walking and she will just drop what she if holding. Prior Treatments and Tests EMG study on hands, results unknown. Treatment Goals Patient/Caregiver Goals Pt goal is to stop the dropping of things. Prior Functional Status Baseline Function- ADL's Modified Independent Baseline Function- Mobility Independent Baseline Function- Other Able to hold onto objects 6 months to a 1 yrs ago. Current Functional Impairments (Reported) Functional Limitations- ADL's Spouse puts pt's socks and shoes on. Can't get up from floor because she can't get up on knees to get up. Must use hands to transfer sit to stand. Functional Limitations- Mobility/Gait Gait with SPC, antalgic gait with short stance time on the R. Personal Factors Other Personal Factors That May Effect Spouse must assist with Therapy/Recovery donning socks and shoes. Pt reports recently being diagnosed with L carpal tunnel syndrome. PT-OP-C Subjective Start: 03/11/19 18:08 Freq: Status: Active Protocol: Document 04/01/19 13:30 SP (Rec: 04/01/19 14:53 SP [email or web address]) OP-PT Subjective Patient Comments Patient Comments Pt stated fingers moving little better, frustrated can' t hold onto things, drops them . Pt stated lost her copy of her HEP and would like another copy today. Patient Reported Progress Improving PT-OP-G Mobility & Gait Start: 03/11/19 18:08 Freq: Status: Active Protocol: Document 03/18/19 13:37 LRN (Rec: 03/18/19 15:07 LRN [id number]) OP Mobility Evaluation Transfers Sit to Stand Requires use of hands to assist. Holds R leg straight while transferring. OP Gait Assessment Gait Gait Assistance Required: Independent Distance (Feet) 100 Able to Maintain Weight Bearing Status Yes During Gait Assistive Devices Assistive Device Straight Cane Gait Deviations General Gait Pattern Antalgic,Decreased Stride Length,Flexed Trunk,Narrow Based Gait PT-OP-J Posture/Palpation/Skin Start: 03/11/19 18:08 Freq: Status: Active Protocol: Document 03/18/19 13:37 LRN (Rec: 03/18/19 15:07 LRN [id number]) Skin Assessment Other Assessments Skin Assessment Comments Pt skin is dry and scaly at knuckles. She has a bandaid around R index finger. PT-OP-K Range of Motion Start: 03/11/19 18:08 Freq: Status: Active Protocol: Document 03/18/19 13:37 LRN (Rec: 03/18/19 15:07 LRN [id number]) Elbow/Forearm Range of Motion Elbow/Forearm Left Active ROM Testing Position Sitting Pronation (degrees) 90 Supination (degrees) 45 Right Active ROM Testing Position Sitting Pronation (degrees) 90 Supination (degrees) 45 Wrist Goniometric Range of Motion Wrist Left Flexion Active (degrees) 35 Extension Active (degrees) 45 Right Flexion Active (degrees) 45 Extension Active (degrees) 45 ROM Limitations Wrist Limitations of Range of Motion Soft Tissue Tightness Finger Goniometric Range of Motion Finger ROM Limitations Finger ROM Limitations Soft Tissue Tightness,Bony Restriction Comments Flexion of MCP joints: generally 90 deg's Flexion of PIP joints: generally 45 deg's Flexion DIP joints: Variable 0 -45 deg's. Finger AD is normal except for R hand 5th digit lacks ~5 deg 's. PT-OP-M Strength Start: 03/11/19 18:08 Freq: Status: Active Protocol: Document 03/18/19 13:37 LRN (Rec: 03/18/19 16:16 LRN [id number]) Wrist Strength Wrist Manual Muscle Testing Left Flexion (C7) 5 Normal Extension (C6) 5 Normal Right Flexion (C7) 5 Normal Extension (C6) 5 Normal Finger/Thumb Strength Finger Manual Muscle Testing Right Fifth Flexion (fingers C8) 3 Fair Adduction 1 Trace Abduction (fingers T1) 2 Poor Hand Cleaner Touch Up Worker/Pinch Strength Hand Dominance Hand Dominance Right Hand Strength Right Cleaner Touch Up Worker (lbs) 23.6 Lateral Pinch (lbs) 6.7 Comments Cleaner Touch Up Worker with 3 trials (kg): 12, 10, 10 Lateral Pinch with index finger (kg): 3 Pt was not able to perform a pinch motion, only lateral pinch. Left Cleaner Touch Up Worker (lbs) 28 Lateral Pinch (lbs) 6.7 Comments Cleaner Touch Up Worker with 3 trials (kg): 14, 10, 14 Pinch with index finger (kg): 3 PT-OP-Q Treatments Start: 03/11/19 18:08 Freq: Status: Active Protocol: Document 04/01/19 13:30 SP (Rec: 04/01/19 14:53 SP [email or web address]) Therapeutic Exercises Supine Exercises AROM PIP/DIP flx/ext intrinsics Supine Exercise Name PIP/DIP flx/ext Side bilateral Reps/Minutes 2x15 each direction Comments Intrinsic strengthening & finger ROM, extra time for training Hands open/close Supine Exercise Name Hands open/close Side bilateral Reps/Minutes 2x15 Sitting Exercises finger DIP/PIP finger flex/ext Side bilateral Resistance AROM Reps/Minutes 2x15 open/close fist Side bilateral Resistance AROM Reps/Minutes 2x15 finger tendon glide Sitting Exercise Name fist start pos then ext 1, 2, 3, 4, 5 (open hand) Side bilateral Resistance AROM Reps/Minutes x15 finger oppostion Sitting Exercise Name finger opposition Side bilateral Resistance AROM Reps/Minutes x15 Comments assist 5th finger to thumb B at end feel Finger Extension Sitting Exercise Name finger extension Side bilateral Resistance AROM and Rubber band palm down table Reps/Minutes 2x15 Comments cued for isolated 4th finger Wrist Extension Sitting Exercise Name Active wrist ext Side bilateral Reps/Minutes 10x Wrist flexion Sitting Exercise Name 1' Stretch or wrist flexors ( elbow bent and straight) Side bilateral Reps/Minutes 1 stretch each side Finger/thumb AB/AD Sitting Exercise Name Finger/thumb AB/AD AROM/PROM Side bilateral Reps/Minutes 2x15 Finger MCP flx/ext Sitting Exercise Name Finger MCP flx/ext AROM Side bilateral Reps/Minutes 2x15 Comments Extra time taken for training PT-OP-R Modalities Start: 03/20/19 08:25 Freq: Status: Active Protocol: Document 04/01/19 13:30 SP (Rec: 04/01/19 14:53 SP [email or web address]) Paraffin Bath Treatment Right Hand Treatment Technique Dip-immersion Wax Temperature (degrees F) 120 Number Wax Layers (layers) 5 Duration (minutes) 5 Patient Tolerance Good Left Hand Treatment Technique Dip-immersion Wax Temperature (degrees F) 120 Number Wax Layers (layers) 5 Duration (minutes) 5 Patient Tolerance Good PT-OP-T Assessment and Plan Start: 03/11/19 18:08 Freq: Status: Active Protocol: Document 04/01/19 13:30 SP (Rec: 04/01/19 14:53 SP [email or web address]) Physical Therapy Assessment Goals Decreased R hand strength Impairment Weakness of intrinsics for finger AD/AB and pinch promotion specialist Half-Way Goal (LTG) Pt will demonstrate improved intrinsic hand strength with a reported decrease in ability to hold objects while walking. LTG Duration 05/17/19 Decreased finger mobility Impairment Pt unable to make a fist to hold objects firmly Two Impairment Lacks appropriate self care HEP Half-Way Goal (LTG) Pt will be independent with a self care HEP LTG Duration 05/17/19 Assessment Summary Assessment Tx focused on HEP review. Provided pencil for isolation DIP/PIP flexion and in modified supination for self feedback not add MCP flexion with improvement. Added finger opposition with elbow flexion rested ont able (AAROM 5th to complete full range) and extension in pronation rested on table to assist isolate each finger with good demonstration. Pt felt more movement in fingers at end of tx. Pt requires increased time and alot of educational cuing to hand out for proper set up and form with fair carryover. Physical Therapy Plan Frequency and Duration Frequency of Treatment 2x/Week Duration of Treatment 8 weeks Plan of Care Start Date 03/18/19 Plan of Care End Date 05/17/19 Therapeutic Interventions Therapeutic Interventions Home Exercise Program,Joint Mobilizations,Manual Therapy, Patient/Caregiver Education, Self-Care/Home Management,Soft Tissue Mobilization, Therapeutic Exercises Modalities Hot Packs,Paraffin Bath Next Visit Focus/Plan Next Note Type Treatment Note Next Visit Plan Review HEP, added finger oppostion, pronated finger ext and tendon finger ext glides, see handouts. Continue per PT POC: finger ext strengthening, f/b Paraffin dip and passive stretch to wrist flexors, finger flex ROM ex's and intrinsic & ext strengthening. HEP to progress at home towards her goal.
--- NOTE | 2019-04-10 16:19 | PT-OP ANOTE ---
Per phone, pt states she didn't know she had an appt today, and said there has been a mix up in the appt being canceled and was waiting for a call from PT
--- NOTE | 2019-04-11 14:33 | PT.OTN ---
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 PT-OP-B Current Condition Start: 03/11/19 18:08 Freq: Status: Active Protocol: Document 03/18/19 13:37 LRN (Rec: 03/18/19 15:07 LRN [id number]) Current Condition History of Current Condition Onset Date 3 months ago neuropathy of the hands Current Complaints Numbness of hands. Tingling in the feet since surgery of L TKA (~4 yrs ago) History of Current Condition Neuropathy of hands is worst problem than the feet. Reports she is not limited by the tingling in her feet. She has had increasing difficulty holding small objects. She is walking and she will just drop what she if holding. Prior Treatments and Tests EMG study on hands, results unknown. Treatment Goals Patient/Caregiver Goals Pt goal is to stop the dropping of things. Prior Functional Status Baseline Function- ADL's Modified Independent Baseline Function- Mobility Independent Baseline Function- Other Able to hold onto objects 6 months to a 1 yrs ago. Current Functional Impairments (Reported) Functional Limitations- ADL's Spouse puts pt's socks and shoes on. Can't get up from floor because she can't get up on knees to get up. Must use hands to transfer sit to stand. Functional Limitations- Mobility/Gait Gait with SPC, antalgic gait with short stance time on the R. Personal Factors Other Personal Factors That May Effect Spouse must assist with Therapy/Recovery donning socks and shoes. Pt reports recently being diagnosed with L carpal tunnel syndrome. PT-OP-C Subjective Start: 03/11/19 18:08 Freq: Status: Active Protocol: Document 04/11/19 09:06 LRN (Rec: 04/11/19 09:55 LRN [id number]) OP-PT Subjective Patient Comments Patient Comments Fingers are doing better, during the day they aren't as tingly or going numb as bad as they used to. When started it was going down the legs also, but not as much as it used to. PT-OP-G Mobility & Gait Start: 03/11/19 18:08 Freq: Status: Active Protocol: Document 03/18/19 13:37 LRN (Rec: 03/18/19 15:07 LRN [id number]) OP Mobility Evaluation Transfers Sit to Stand Requires use of hands to assist. Holds R leg straight while transferring. OP Gait Assessment Gait Gait Assistance Required: Independent Distance (Feet) 100 Able to Maintain Weight Bearing Status Yes During Gait Assistive Devices Assistive Device Straight Cane Gait Deviations General Gait Pattern Antalgic,Decreased Stride Length,Flexed Trunk,Narrow Based Gait PT-OP-J Posture/Palpation/Skin Start: 03/11/19 18:08 Freq: Status: Active Protocol: Document 03/18/19 13:37 LRN (Rec: 03/18/19 15:07 LRN [id number]) Skin Assessment Other Assessments Skin Assessment Comments Pt skin is dry and scaly at knuckles. She has a bandaid around R index finger. PT-OP-K Range of Motion Start: 03/11/19 18:08 Freq: Status: Active Protocol: Document 03/18/19 13:37 LRN (Rec: 03/18/19 15:07 LRN [id number]) Elbow/Forearm Range of Motion Elbow/Forearm Left Active ROM Testing Position Sitting Pronation (degrees) 90 Supination (degrees) 45 Right Active ROM Testing Position Sitting Pronation (degrees) 90 Supination (degrees) 45 Wrist Goniometric Range of Motion Wrist Left Flexion Active (degrees) 35 Extension Active (degrees) 45 Right Flexion Active (degrees) 45 Extension Active (degrees) 45 ROM Limitations Wrist Limitations of Range of Motion Soft Tissue Tightness Finger Goniometric Range of Motion Finger ROM Limitations Finger ROM Limitations Soft Tissue Tightness,Bony Restriction Comments Flexion of MCP joints: generally 90 deg's Flexion of PIP joints: generally 45 deg's Flexion DIP joints: Variable 0 -45 deg's. Finger AD is normal except for R hand 5th digit lacks ~5 deg 's. PT-OP-M Strength Start: 03/11/19 18:08 Freq: Status: Active Protocol: Document 03/18/19 13:37 LRN (Rec: 03/18/19 16:16 LRN [id number]) Wrist Strength Wrist Manual Muscle Testing Left Flexion (C7) 5 Normal Extension (C6) 5 Normal Right Flexion (C7) 5 Normal Extension (C6) 5 Normal Finger/Thumb Strength Finger Manual Muscle Testing Right Fifth Flexion (fingers C8) 3 Fair Adduction 1 Trace Abduction (fingers T1) 2 Poor Hand Hydraulic Dredge Operator/Pinch Strength Hand Dominance Hand Dominance Right Hand Strength Right Hydraulic Dredge Operator (lbs) 23.6 Lateral Pinch (lbs) 6.7 Comments Hydraulic Dredge Operator with 3 trials (kg): 12, 10, 10 Lateral Pinch with index finger (kg): 3 Pt was not able to perform a pinch motion, only lateral pinch. Left Hydraulic Dredge Operator (lbs) 28 Lateral Pinch (lbs) 6.7 Comments Hydraulic Dredge Operator with 3 trials (kg): 14, 10, 14 Pinch with index finger (kg): 3 PT-OP-Q Treatments Start: 03/11/19 18:08 Freq: Status: Active Protocol: Document 04/11/19 09:06 LRN (Rec: 04/11/19 09:55 LRN [id number]) Therapeutic Exercises Sitting Exercises Finger AD Sitting Exercise Name Finger AD, primarily 4th, 5th digits Side bilateral Equipment Used Blue Theraputty Reps/Minutes 3' finger DIP/PIP finger flex/ext Sitting Exercise Name Extension Side bilateral Resistance AROM Reps/Minutes 2x15 open/close fist Sitting Exercise Name Hand open/close Side bilateral Resistance AROM Reps/Minutes 2x15 finger tendon glide Sitting Exercise Name fist start pos then ext 1, 2, 3, 4, 5 (open hand) Side bilateral Resistance AROM Reps/Minutes x15 finger oppostion Sitting Exercise Name finger opposition Side bilateral Resistance AROM Reps/Minutes x15 Comments assist 5th finger to thumb B at end feel Finger Extension Sitting Exercise Name finger extension Side bilateral Resistance AROM and Rubber band palm down table Reps/Minutes 2x15 Comments cued for isolated 4th finger Finger/thumb AB/AD Sitting Exercise Name Finger/thumb AB/AD AROM/PROM Side bilateral Reps/Minutes 2x15 Finger MCP flx/ext Sitting Exercise Name Finger MCP flx/ext AROM Side bilateral Reps/Minutes 2x15 Self-Care/Home Management Treatment Education Patient Education Home Exercise Program Activities Self-Care/Home Management Activities I/S pt in use of Theraputty for finger AD strengtening. PT-OP-R Modalities Start: 03/20/19 08:25 Freq: Status: Active Protocol: Document 04/11/19 09:06 LRN (Rec: 04/11/19 09:55 LRN [id number]) Paraffin Bath Treatment Right Hand Treatment Technique Dip-immersion Wax Temperature (degrees F) 120 Number Wax Layers (layers) 5 Duration (minutes) 6 Patient Tolerance Good Left Hand Treatment Technique Dip-immersion Wax Temperature (degrees F) 120 Number Wax Layers (layers) 5 Duration (minutes) 6 Patient Tolerance Good Comment Treatment Comment Extra time taken for needed 2nd washing of hands. PT-OP-T Assessment and Plan Start: 03/11/19 18:08 Freq: Status: Active Protocol: Document 04/11/19 09:06 LRN (Rec: 04/11/19 09:55 LRN [id number]) Physical Therapy Assessment Goals Decreased R hand strength Impairment Weakness of intrinsics for finger AD/AB and pinch road worker Shelter Goal (LTG) Pt will demonstrate improved intrinsic hand strength with a reported increase in ability to hold objects while walking. LTG Duration 05/17/19 (04/11/19: Pt still dropping objects) Decreased finger mobility Impairment Pt unable to make a fist to hold objects firmly Short Term Goal (STG) Pt will be able to road worker with finger tips at mid palm rather than lower 1/3 of palm. STG Duration 04/16/18 Deckhand Oyster Dredge Goal (LTG) Pt will report ability to hold objects and walk without dropping. LTG Duration 05/17/19 Two Impairment Lacks appropriate self care HEP Deckhand Oyster Dredge Goal (LTG) Pt will be independent with a self care HEP LTG Duration 05/17/19 (04/11/19: Progressing ) Assessment Summary Assessment Fair understanding of HEP. Finger opposition with elbow flexion rested on table (AAROM 4th & 5th digits on R hand to complete full range) and extension in pronation rested on table to assist isolate each finger with good demonstration. Pt continues to require increased time and alot of educational cuing for proper set up and form with questionable carryover. Physical Therapy Plan Frequency and Duration Frequency of Treatment 2x/Week Duration of Treatment 8 weeks Plan of Care Start Date 03/18/19 Plan of Care End Date 05/17/19 Next Visit Focus/Plan Next Note Type Treatment Note Next Visit Plan Review HEP of TPutty finger AD strengthening. Progress hand strengthening for grasping of objects and extending fingers . Continue per PT POC: finger ext strengthening, f/b Paraffin dip and passive stretch to wrist flexors, finger flex ROM ex's and intrinsic & ext strengthening. HEP to progress at home towards her goal.
--- NOTE | 2019-04-14 17:02 | PT.OTN ---
Current Diagnoses Polyneuropathy, unspecified (04/14/19) Muscle wasting and atrophy, not elsewhere classified, unspecified hand (04/14/19) Physical Therapy Treatment Note PT-OP-A Visit Information Start: 03/11/19 18:08 Freq: Status: Active Protocol: Document 04/14/19 13:33 LRN (Rec: 04/14/19 14:19 LRN [id number]) Out-Patient Physical Therapy Visit Information Visit Information Visit Type Treatment Note Visit Start Time 13:33 Visit Stop Time 14:18 Total Visit Minutes 45 Visit Number 7 Number of ON AIR DIRECTOR Visits 0 Evaluation Information Evaluation Date 03/18/19 Precautions Precautions Breast CA - 6 yr ago with biopsy, controlled with Tamoxafin, Arthritis, Diabetes II, L TKA - 4 yrs ago, Controlled High Blood pressure , . PT-OP-B Current Condition Start: 03/11/19 18:08 Freq: Status: Active Protocol: Document 03/18/19 13:37 LRN (Rec: 03/18/19 15:07 LRN [id number]) Current Condition History of Current Condition Onset Date 3 months ago neuropathy of the hands Current Complaints Numbness of hands. Tingling in the feet since surgery of L TKA (~4 yrs ago) History of Current Condition Neuropathy of hands is worst problem than the feet. Reports she is not limited by the tingling in her feet. She has had increasing difficulty holding small objects. She is walking and she will just drop what she if holding. Prior Treatments and Tests EMG study on hands, results unknown. Treatment Goals Patient/Caregiver Goals Pt goal is to stop the dropping of things. Prior Functional Status Baseline Function- ADL's Modified Independent Baseline Function- Mobility Independent Baseline Function- Other Able to hold onto objects 6 months to a 1 yrs ago. Current Functional Impairments (Reported) Functional Limitations- ADL's Spouse puts pt's socks and shoes on. Can't get up from floor because she can't get up on knees to get up. Must use hands to transfer sit to stand. Functional Limitations- Mobility/Gait Gait with SPC, antalgic gait with short stance time on the R. Personal Factors Other Personal Factors That May Effect Spouse must assist with Therapy/Recovery donning socks and shoes. Pt reports recently being diagnosed with L carpal tunnel syndrome. PT-OP-C Subjective Start: 03/11/19 18:08 Freq: Status: Active Protocol: Document 04/14/19 13:33 LRN (Rec: 04/14/19 14:19 LRN [id number]) OP-PT Subjective Patient Comments Patient Comments Pt states she hasn't been dropping things as much. Thinks she is getting more bend of the R 5th digit. PT-OP-G Mobility & Gait Start: 03/11/19 18:08 Freq: Status: Active Protocol: Document 03/18/19 13:37 LRN (Rec: 03/18/19 15:07 LRN [id number]) OP Mobility Evaluation Transfers Sit to Stand Requires use of hands to assist. Holds R leg straight while transferring. OP Gait Assessment Gait Gait Assistance Required: Independent Distance (Feet) 100 Able to Maintain Weight Bearing Status Yes During Gait Assistive Devices Assistive Device Straight Cane Gait Deviations General Gait Pattern Antalgic,Decreased Stride Length,Flexed Trunk,Narrow Based Gait PT-OP-J Posture/Palpation/Skin Start: 03/11/19 18:08 Freq: Status: Active Protocol: Document 03/18/19 13:37 LRN (Rec: 03/18/19 15:07 LRN [id number]) Skin Assessment Other Assessments Skin Assessment Comments Pt skin is dry and scaly at knuckles. She has a bandaid around R index finger. PT-OP-K Range of Motion Start: 03/11/19 18:08 Freq: Status: Active Protocol: Document 03/18/19 13:37 LRN (Rec: 03/18/19 15:07 LRN [id number]) Elbow/Forearm Range of Motion Elbow/Forearm Left Active ROM Testing Position Sitting Pronation (degrees) 90 Supination (degrees) 45 Right Active ROM Testing Position Sitting Pronation (degrees) 90 Supination (degrees) 45 Wrist Goniometric Range of Motion Wrist Left Flexion Active (degrees) 35 Extension Active (degrees) 45 Right Flexion Active (degrees) 45 Extension Active (degrees) 45 ROM Limitations Wrist Limitations of Range of Motion Soft Tissue Tightness Finger Goniometric Range of Motion Finger ROM Limitations Finger ROM Limitations Soft Tissue Tightness,Bony Restriction Comments Flexion of MCP joints: generally 90 deg's Flexion of PIP joints: generally 45 deg's Flexion DIP joints: Variable 0 -45 deg's. Finger AD is normal except for R hand 5th digit lacks ~5 deg 's. PT-OP-M Strength Start: 03/11/19 18:08 Freq: Status: Active Protocol: Document 03/18/19 13:37 LRN (Rec: 03/18/19 16:16 LRN [id number]) Wrist Strength Wrist Manual Muscle Testing Left Flexion (C7) 5 Normal Extension (C6) 5 Normal Right Flexion (C7) 5 Normal Extension (C6) 5 Normal Finger/Thumb Strength Finger Manual Muscle Testing Right Fifth Flexion (fingers C8) 3 Fair Adduction 1 Trace Abduction (fingers T1) 2 Poor Hand Instrument Calibrator/Pinch Strength Hand Dominance Hand Dominance Right Hand Strength Right Instrument Calibrator (lbs) 23.6 Lateral Pinch (lbs) 6.7 Comments Instrument Calibrator with 3 trials (kg): 12, 10, 10 Lateral Pinch with index finger (kg): 3 Pt was not able to perform a pinch motion, only lateral pinch. Left Instrument Calibrator (lbs) 28 Lateral Pinch (lbs) 6.7 Comments Instrument Calibrator with 3 trials (kg): 14, 10, 14 Pinch with index finger (kg): 3 PT-OP-Q Treatments Start: 03/11/19 18:08 Freq: Status: Active Protocol: Document 04/14/19 13:33 LRN (Rec: 04/14/19 14:19 LRN [id number]) Therapeutic Exercises Sitting Exercises Finger AD Sitting Exercise Name Finger AD, primarily 4th, 5th digits Side bilateral Equipment Used Blue Theraputty Reps/Minutes 3' finger DIP/PIP finger flex/ext Sitting Exercise Name Extension Side bilateral Resistance AROM Reps/Minutes 2x15 open/close fist Sitting Exercise Name Hand open/close Side bilateral Resistance AROM Reps/Minutes 2x15 finger tendon glide Sitting Exercise Name fist start pos then ext 1, 2, 3, 4, 5 (open hand) Side bilateral Resistance AROM Reps/Minutes x15 finger oppostion Sitting Exercise Name finger opposition Side bilateral Resistance AROM Reps/Minutes x5 Comments assist 5th finger to thumb B at end feel Finger Extension Sitting Exercise Name finger extension Side bilateral Resistance AROM and Rubber band palm down table Reps/Minutes 2x15 Comments cued for isolated 4th finger Wrist Extension Sitting Exercise Name Active wrist ext stretch Side bilateral Reps/Minutes 10x Wrist flexion Sitting Exercise Name 1' Stretch or wrist flexors ( elbow bent and straight) Side bilateral Reps/Minutes 1 stretch each side Finger MCP flx/ext Sitting Exercise Name Finger MCP flx/ext AROM Side bilateral Reps/Minutes 2x15 PT-OP-R Modalities Start: 03/20/19 08:25 Freq: Status: Active Protocol: Document 04/14/19 13:33 LRN (Rec: 04/14/19 14:19 LRN [id number]) Paraffin Bath Treatment Right Hand Treatment Technique Dip-immersion Wax Temperature (degrees F) 120 Number Wax Layers (layers) 5 Duration (minutes) 6 Patient Tolerance Good Left Hand Treatment Technique Dip-immersion Wax Temperature (degrees F) 120 Number Wax Layers (layers) 5 Duration (minutes) 6 Patient Tolerance Good Comment Treatment Comment extra time for washing hands x 2 PT-OP-T Assessment and Plan Start: 03/11/19 18:08 Freq: Status: Active Protocol: Document 04/14/19 13:33 LRN (Rec: 04/14/19 14:19 LRN [id number]) Physical Therapy Assessment Goals Decreased R hand strength Impairment Weakness of intrinsics for finger AD/AB and pinch rate analyst Bellman Captain Goal (LTG) Pt will demonstrate improved intrinsic hand strength with a reported increase in ability to hold objects while walking. LTG Duration 05/17/19 (04/14/19: Improving) Decreased finger mobility Impairment Pt unable to make a fist to hold objects firmly Short Term Goal (STG) Pt will be able to rate analyst with finger tips at mid palm rather than lower 1/3 of palm. STG Duration 04/16/18 Bellman Captain Goal (LTG) Pt will report ability to hold objects and walk without dropping. LTG Duration 05/17/19 Two Impairment Lacks appropriate self care HEP Detention Goal (LTG) Pt will be independent with a self care HEP LTG Duration 05/17/19 (04/11/19: Progressing ) Assessment Summary Assessment Pt shows improved coordination of finger exercises, especially the finger glides. Pt continues to require increased time and alot of educational cuing for set up and form. Extra time taken for ROM of fingers; therefore did not get to review T-Putty ex's. Physical Therapy Plan Frequency and Duration Frequency of Treatment 2x/Week Duration of Treatment 8 weeks Plan of Care Start Date 03/18/19 Plan of Care End Date 05/17/19 Next Visit Focus/Plan Next Note Type Treatment Note Next Visit Plan HAND CHECK before paraffin dip . Review HEP of TPutty finger AD strengthening. Progress hand strengthening for grasping of objects and extending fingers. Continue per PT POC: finger ext strengthening, f/b Paraffin dip and passive stretch to wrist flexors, finger flex ROM ex's and intrinsic & ext strengthening. HEP to progress at home towards her goal.
--- NOTE | 2019-04-17 16:08 | PT-OP ANOTE ---
Pt called to inform of rash on her hands and wanted to know if she should cancel her appt tomorrow. Pt was advised to cancel her appt and make an appt with her primary care physician to determine cause of rash and if it is contagious. Pt to get clearance to return to therapy once she she is cleared of condition or cleared her condition is not transferable.
--- NOTE | 2019-05-06 15:41 | PT.OTN ---
Current Diagnoses Polyneuropathy, unspecified (05/06/19) Muscle wasting and atrophy, not elsewhere classified, unspecified hand (05/06/19) Physical Therapy Treatment Note PT-OP-A Visit Information Start: 03/11/19 18:08 Freq: Status: Active Protocol: Document 05/06/19 14:22 LRN (Rec: 05/06/19 15:38 LRN [id number]) Out-Patient Physical Therapy Visit Information Visit Information Visit Type Treatment Note Visit Start Time 14:22 Visit Stop Time 15:17 Total Visit Minutes 55 Visit Number 8 Number of MEDICAL RESIDENT Visits 0 Evaluation Information Evaluation Date 03/18/19 Precautions Precautions Breast CA - 6 yr ago with biopsy, controlled with Tamoxafin, Arthritis, Diabetes II, L TKA - 4 yrs ago, Controlled High Blood pressure , . PT-OP-B Current Condition Start: 03/11/19 18:08 Freq: Status: Active Protocol: Document 03/18/19 13:37 LRN (Rec: 03/18/19 15:07 LRN [id number]) Current Condition History of Current Condition Onset Date 3 months ago neuropathy of the hands Current Complaints Numbness of hands. Tingling in the feet since surgery of L TKA (~4 yrs ago) History of Current Condition Neuropathy of hands is worst problem than the feet. Reports she is not limited by the tingling in her feet. She has had increasing difficulty holding small objects. She is walking and she will just drop what she if holding. Prior Treatments and Tests EMG study on hands, results unknown. Treatment Goals Patient/Caregiver Goals Pt goal is to stop the dropping of things. Prior Functional Status Baseline Function- ADL's Modified Independent Baseline Function- Mobility Independent Baseline Function- Other Able to hold onto objects 6 months to a 1 yrs ago. Current Functional Impairments (Reported) Functional Limitations- ADL's Spouse puts pt's socks and shoes on. Can't get up from floor because she can't get up on knees to get up. Must use hands to transfer sit to stand. Functional Limitations- Mobility/Gait Gait with SPC, antalgic gait with short stance time on the R. Personal Factors Other Personal Factors That May Effect Spouse must assist with Therapy/Recovery donning socks and shoes. Pt reports recently being diagnosed with L carpal tunnel syndrome. PT-OP-C Subjective Start: 03/11/19 18:08 Freq: Status: Active Protocol: Document 05/06/19 14:22 LRN (Rec: 05/06/19 15:38 LRN [id number]) OP-PT Subjective Patient Comments Patient Comments Was given 1% cortisone cream and itching/rash went away. Has had rashes before. Reports 50% improved ability to credit controller and dropping objects 50% less. Requests discharge and states she will continue with her HEP. PT-OP-G Mobility & Gait Start: 03/11/19 18:08 Freq: Status: Active Protocol: Document 03/18/19 13:37 LRN (Rec: 03/18/19 15:07 LRN [id number]) OP Mobility Evaluation Transfers Sit to Stand Requires use of hands to assist. Holds R leg straight while transferring. OP Gait Assessment Gait Gait Assistance Required: Independent Distance (Feet) 100 Able to Maintain Weight Bearing Status Yes During Gait Assistive Devices Assistive Device Straight Cane Gait Deviations General Gait Pattern Antalgic,Decreased Stride Length,Flexed Trunk,Narrow Based Gait PT-OP-J Posture/Palpation/Skin Start: 03/11/19 18:08 Freq: Status: Active Protocol: Document 03/18/19 13:37 LRN (Rec: 03/18/19 15:07 LRN [id number]) Skin Assessment Other Assessments Skin Assessment Comments Pt skin is dry and scaly at knuckles. She has a bandaid around R index finger. PT-OP-K Range of Motion Start: 03/11/19 18:08 Freq: Status: Active Protocol: Document 05/06/19 14:22 LRN (Rec: 05/06/19 15:38 LRN [id number]) Elbow/Forearm Range of Motion Elbow/Forearm Left Active Pronation (degrees) 90 Supination (degrees) 54 Right Active Pronation (degrees) 90 Supination (degrees) 50 Wrist Goniometric Range of Motion Wrist Left Flexion Active (degrees) 50 Extension Active (degrees) 62 Right Flexion Active (degrees) 48 Extension Active (degrees) 65 Finger Goniometric Range of Motion Finger ROM Limitations Finger ROM Limitations Soft Tissue Tightness,Bony Restriction Comments L hand: Flexion of MCP joints: generally 90 deg's Flexion of PIP joints: generally 90 deg's Flexion DIP joints: Variable 0 -64 deg's. Finger AD is normal except for R hand 5th digit lacks ~5 deg 's. R hand: Flexion of MCP joints: generally 90 deg's Flexion of PIP joints: generally 90 deg's Flexion DIP joints: Variable 0 -50 deg's. Finger AD is normal except for R hand 5th digit lacks ~5 deg 's. PT-OP-M Strength Start: 03/11/19 18:08 Freq: Status: Active Protocol: Document 05/06/19 14:22 LRN (Rec: 05/06/19 15:38 LRN [id number]) Hand Social Media Job Titles/Pinch Strength Hand Dominance Hand Dominance Right PT-OP-Q Treatments Start: 03/11/19 18:08 Freq: Status: Active Protocol: Document 05/06/19 14:22 LRN (Rec: 05/06/19 15:38 LRN [id number]) Therapeutic Exercises Sitting Exercises Finger AD Sitting Exercise Name Finger AD, primarily 4th, 5th digits Side bilateral Equipment Used Pieces of paper (3-1) Reps/Minutes 2' finger DIP/PIP finger flex/ext Sitting Exercise Name Flexion Side bilateral Resistance AROM Reps/Minutes 15x Comments ROM measured open/close fist Sitting Exercise Name Hand open/close Side bilateral Resistance AROM Reps/Minutes 2x15, 1x 10 Comments Under MH & after MH finger oppostion Sitting Exercise Name finger opposition Side bilateral Resistance AROM Reps/Minutes x2 Comments assist 5th finger to thumb B at end feel Wrist Extension Sitting Exercise Name Active wrist ext stretch Side bilateral Reps/Minutes 10x Comments ROM measured Wrist flexion Sitting Exercise Name 1' Stretch or wrist flexors ( elbow bent and straight) Side bilateral Reps/Minutes 1 stretch each side Comments ROM measured Finger MCP flx/ext Sitting Exercise Name Finger MCP flx AROM Side bilateral Reps/Minutes 1x15 Comments ROM measured Self-Care/Home Management Treatment Education Patient Education Home Exercise Program Activities Self-Care/Home Management Activities Reviewed pt's HEP with focus of home ex's. PT-OP-R Modalities Start: 03/20/19 08:25 Freq: Status: Active Protocol: Document 05/06/19 14:22 LRN (Rec: 05/06/19 15:38 LRN [id number]) Hot Pack/Cold Pack Treatment Hot Pack Location Hands Patient Position Sitting Treatment Duration (minutes) 10 Comments Used @ start of therapy. Finger ROM ex during use of MH . PT-OP-T Assessment and Plan Start: 03/11/19 18:08 Freq: Status: Active Protocol: Document 05/06/19 14:22 LRN (Rec: 05/06/19 15:38 LRN [id number]) Physical Therapy Assessment Goals Decreased R hand strength Impairment Weakness of intrinsics for finger AD/AB and pinch credit controller Mcfp Goal (LTG) Pt will demonstrate improved intrinsic hand strength with a reported increase in ability to hold objects while walking. LTG Duration 05/17/19 (05/06/19: Improved: Goal not met: 50% better.) Decreased finger mobility Impairment Pt unable to make a fist to hold objects firmly Short Term Goal (STG) Pt will be able to credit controller with finger tips at mid palm rather than lower 1/3 of palm. (L hand 2nd & 5th digit to midpalm, R hand 3rd & 5th digit mobility just under midpalm). STG Duration 04/16/18 (05/06/19: Goal partially met) Ct Scan Tech Goal (LTG) Pt will report ability to hold objects and walk without dropping. LTG Duration 05/17/19 (05/06/19: Improved, goal not met) Two Impairment Lacks appropriate self care HEP Ct Scan Tech Goal (LTG) Pt will be independent with a self care HEP LTG Duration 05/17/19 (05/06/19: GOAL MET) Assessment Summary Assessment Pt was seen for 7 PT treatments. She attends today after a few weeks break due to onset of a skin rash. She returns demonstrating improved bilateral wrist, forearm, and finger PIP mobility. She indicated 50% improvement in her ability to credit controller objects, and demonstrates some improvement in gripping mobility, L hand greater than R hand. She feels ready to be placed on her independent HEP , and appears to understand her home ex's; therefore the pt will be discharged from therapy to her HEP. Physical Therapy Plan Frequency and Duration Frequency of Treatment 2x/Week Duration of Treatment 8 weeks Plan of Care Start Date 03/18/19 Plan of Care End Date 05/17/19 Discharge Physical Therapy Discharge Reasons Patient Request Discharge Comments Pt has shown some improvement in her ability to credit controller and hold objects. She still has some limitations in her forearm, wrist and finger mobility, but overall her function has improved 50%, per pt report. All goals were not met, but the pt can continue to progress towards meeting the goals independently on her HEP. Thank you for your referral.
== END 2019-05-08 13:08 ==
LOC: PHYS 14:15
PROVIDERS: PCP Family Medicine; Visit Provider Family Medicine
DX: G62.9 Polyneuropathy, unspecified (principal); M62.549 Muscle wasting and atrophy, not elsewhere classified, unspecified hand
CPT/HCPCS: 97010; 97018; 97110; 97161; 97535

== ENCOUNTER → 2020-02-16 15:30 | Outpatient (CLI) | payer MEDICARE, OTHER, SELFPAY ==
--- NOTE | 2020-02-16 15:33 | DI.MG.S_ITS ---
BILATERAL DIGITAL SCREENING MAMMOGRAM 3D/2D WITH CAD: 02/16/2020 CLINICAL: Routine screening. Breast cancer. Comparison is made to exams dated: 12/27/2018 mammogram, 01/09/2018 mammogram, 12/25/2017 mammogram, and 11/27/2016 mammogram - [facility]. The tissue of both breasts is heterogeneously dense. This may lower the sensitivity of mammography. Current study was also evaluated with a Computer Aided Detection (CAD) system. There are benign calcifications in both breasts. There also are benign post operative findings in the left breast. No significant masses, calcifications, or other findings are seen in either breast. There has been no significant interval change. IMPRESSION: BENIGN There is no mammographic evidence of malignancy. A 1 year screening mammogram is recommended. This exam was interpreted at Station ID: [id number]. NOTE: For mammograms, a report in lay terms will be sent to the patient. Approximately 15% of breast malignancies will not be visualized mammographically. In the management of a palpable breast mass, a negative mammogram must not discourage biopsy of a clinically suspicious lesion. Electronically Signed By: Ju whitt/dipika:02/16/2020 17:30:17 letter sent: Normal Exam ACR BI-RADS Category 2: Benign Finding(s) [id number]
== END ==
PROVIDERS: PCP Family Medicine; Referring Provider Family Medicine; Visit Provider Family Medicine
DX: Z12.31 Encounter for screening mammogram for malignant neoplasm of breast (principal); Z85.3 Personal history of malignant neoplasm of breast
CPT/HCPCS: 77063; 77067

== ENCOUNTER 2020-04-20 15:25 | Observation (INO) | payer MEDICARE, OTHER, SELFPAY ==
[2020-04-20] VITALS (19 sets, daily range): BP systolic 130–170; BP diastolic 56–89; PULSE 88–122; RESP 17–28; TEMP 36.2–37.2; O2SAT 95–100; BMI 32.8
--- NOTE | 2020-04-20 15:39 | DI.RAD.S_ITS ---
PROCEDURE: XR CHEST 1V INDICATIONS: confusion TECHNIQUE: One view of the chest was acquired. COMPARISON: [facility], , CHEST 2 VIEW, 10/03/2007, 14:56. FINDINGS: Surgical changes and devices: Surgical clips are seen in the region of left breast. Lungs and pleura: Lungs are clear. No pleural effusions or pneumothorax. Mediastinum: Mediastinal contours appear normal. Heart size is normal. Bones and chest wall: No suspicious bony lesions. Overlying soft tissues appear unremarkable. IMPRESSION: No acute cardiopulmonary pathology. Dictated by: Wander Gonzalez M.D. on 04/20/2020 at 16:09 Approved by: Wander Gonzalez M.D. on 04/20/2020 at 16:11
--- NOTE | 2020-04-20 15:42 | ED_ITS ---
HPI - Sepsis General Chief Complaint: Altered Mental Status Mode of arrival: Wheelchair Source: patient and family () Limitations: no limitations Evaluation Sepsis Screen: Possible Sepsis Risk Sepsis Infection Criteria Present: Documented Infection Narrative: This is a 80-year-old female who comes emergency department with 2-3 days of confusion. Patient was seen approximately a week in Dr. estevez office and was started on antibiotics for fully 7-10 days ago. She would return today to have a repeat urinalysis and it was noted she was confused patient states she has been mildly confused. She knows her name, she knows the year, she knows why she is here a but has trouble with the day of the week no fevers or chills that either her are aware of no headaches, no chest pain or shortness of breath. No nausea, no vomiting, no diarrhea or constipation. She had dysuria, urgency and frequency about a week but states that has improved she any abdominal or flank pain. She has not had a cough. She does state that she had a in the last week, she denies hitting her head but states she did trip and plan on her knees. She has a history of hypertension, dyslipidemia and diabetes in his on oral medications. She has hypothyroidism secondary to treatment of a thyroid nodule, she states she has a hysterectomy and appendectomy. She also s tates she has had a kidney stone in the past. Review of Systems Review of Systems ROS Unobtainable: All systems reviewed & are unremarkable except as noted in HPI and below Patient History Medical History (Updated 04/20/20 @ 18:56 by Cristina Encinas DO) Diabetes Dyslipidemia Hypertension Exam Narrative Exam Narrative: GEN: well nourished, well appearing female, alert and oriented, to self, she knows she is at the hospital, she is able to give me the year in the month but unable to give me the day of the week. She has some confusion about minor details and is able to give me some of her medical history, patient appears to be in mild distress. HEENT: Atraumatic, pupils are equal round reactive to light, extraocular movements are intact, nares are clear. Throat is clear without any exudates, erythema, tonsillar enlargement or uvular deviation, dry mucous membranes. HEART: Regular rate and rhythm without murmur, clicks, rubs. Pulses are equal in upper and lower extremities LUNGS:Lungs clear to auscultation, no wheezes, rales, crackles, chest moves symmetrically, no tachypnea, no accessory muscle use. ABD:bowel sounds normal, soft, non-tender, no guarding, rebound, rigidity, no masses noted, no hepatosplenomegaly :No CVA tenderness MSCL: Non-tender, no muscle atrophy, muscles strength 5/5 upper and lower extremities, full range of motion NEURO:CN 2-12 intact, sensation normal SKIN: No erythema, pallor or cyanosis. Initial Vital Signs Initial Vital Signs: Vital Signs Temperature 97.2 F L 04/20/20 15:34 Pulse Rate 122 H 04/20/20 15:34 Respiratory Rate 22 04/20/20 15:34 Blood Pressure 133/66 04/20/20 15:34 Pulse Oximetry 96 04/20/20 15:34 Scores GCS Seema coma scale eye opening: Spontaneous [place] coma scale verbal response: Confused [place] coma scale motor response: Obey commands Seema coma scale total score: 14 Course Orders Ordered: ED Orders 04/20/20 15:39 XR chest 1V Stat 04/20/20 15:40 EKG-12 Lead Stat 04/20/20 15:42 CT head/brain wo con Stat 04/20/20 15:45 Acetaminophen Stat COVID19 Stat Complete Blood Count AUTO DIFF Stat Comprehensive Metabolic Panel Stat Lactate (Lactic Acid) Stat NT-proBNP (BNP-Adult 18+) Stat Partial Thromboplastin Time Stat Procalcitonin Stat Prothrombin Time INR Stat TSH w/ Reflex to FT4 Stat Troponin & CK Cardiac Panel Stat 04/20/20 16:10 Blood Culture Stat 04/20/20 18:20 Urinalysis and Microscopic Stat Urine Drug Screen, Rapid Stat Sodium Chloride (Normal Saline 0.9%) 1,000 mls @ 100 mls/hr IV BOLUS ONE Stop: 04/21/20 04:47 Last Admin: 04/20/20 18:52 Dose: 100 mls/hr Documented by: Discontinued Medications Sodium Chloride (Normal Saline 0.9%) 1,000 mls @ 1,000 mls/hr IV BOLUS ONE Stop: 04/20/20 16:51 Last Infusion: 04/20/20 17:30 Dose: 0 mls/hr Documented by: Admin: 04/20/20 15:59 Dose: 1,000 mls/hr Documented by: LENNY Sodium Chloride (Normal Saline 0.9%) 1,000 mls @ 1,000 mls/hr IV BOLUS ONE Stop: 04/20/20 18:27 Last Infusion: 04/20/20 18:48 Dose: 0 mls/hr Documented by: Admin: 04/20/20 17:35 Dose: 1,000 mls/hr Documented by: VALENTINA Loomis Consultation #1: Dr. Kilgore accepts for observation. Time: 18:57 Vital Signs Vital signs: Vital Signs - 8 hr 04/20/20 15:34 04/20/20 15:56 04/20/20 15:58 Temperature 97.2 F L Pulse Rate 122 H 112 H 113 H Respiratory Rate 22 22 26 H Blood Pressure 133/66 135/65 Pulse Oximetry 96 96 97 04/20/20 16:00 04/20/20 16:15 04/20/20 16:30 Temperature Pulse Rate 111 H 105 H 104 H Respiratory Rate 24 23 24 Blood Pressure 137/60 148/65 H 148/56 H Pulse Oximetry 96 95 97 04/20/20 16:45 04/20/20 17:00 04/20/20 17:15 Temperature Pulse Rate 96 H 98 H 99 H Respiratory Rate 24 23 24 Blood Pressure 154/65 H 158/66 H Pulse Oximetry 97 98 97 04/20/20 17:28 04/20/20 17:30 04/20/20 17:45 Temperature Pulse Rate 101 H 101 H 97 H Respiratory Rate 27 H 28 H 23 Blood Pressure 138/78 146/77 H 150/70 H Pulse Oximetry 98 99 98 04/20/20 18:04 04/20/20 18:15 04/20/20 18:19 Temperature Pulse Rate 99 H 98 H 94 H Respiratory Rate 22 26 H Blood Pressure 170/72 H Pulse Oximetry 98 98 100 04/20/20 18:30 04/20/20 18:45 04/20/20 19:00 Temperature Pulse Rate 88 93 H 98 H Respiratory Rate 23 23 24 Blood Pressure 153/66 H 160/75 H Pulse Oximetry 99 97 100 MDM - Sepsis Lab Data Attestation: I reviewed the patient's lab results. Result diagrams: 04/20/20 15:45 04/20/20 15:45 Labs: Lab Results 04/20/20 04/20/20 04/20/20 Range/Units 15:45 15:45 15:45 WBC 8.4 (4.5-11.0) X10^3/uL RBC 4.81 (4.0-5.2) X10^6/uL Hgb 14.7 (12.0-16.0) g/dL Hct 43.4 (36-46) % MCV 90.2 (80-100) fL MCH 30.6 (26-34) PG MCHC 33.9 (30-36) % RDW 14.1 (11.6-14.8) % Plt Count 334 (150-400) X10^3/uL Neut % (Auto) 64.9 (50-75) % Lymph % (Auto) 23.6 L (25-40) % [place] % (Auto) 8.8 (3-14) % Eos % (Auto) 2.3 (2-4) % Baso % (Auto) 0.4 (0-2) % Neut # (Auto) 5400 (1328-5576) /uL Lymph # (Auto) 2000 (2649-3902) /uL [place] # (Auto) 700 (0-900) /uL Eos # (Auto) 200 (0-450) /uL Baso # (Auto) 0 (0-100) /uL PT 12.1 (10.1-12.7) SECONDS INR 1.0 (0.9-1.3) APTT (26.4-36.2) SECONDS Sodium (137-145) mmol/L Potassium (3.4-5.1) mmol/L Chloride (98-107) mmol/L Carbon Dioxide (22-32) mmol/L BUN (7-17) mg/dL Creatinine (0.52-1.04) mg/dL Estimated GFR (>60) mL/min BUN/Creatinine Ratio (6-22) Glucose (80-110) mg/dL Lactate (0.7-2.1) mmol/L Calcium (8.4-10.2) mg/dL Total Bilirubin (0.2-1.3) mg/dL AST (14-36) IU/L ALT (<35) IU/L Alkaline Phosphatase (38-126) U/L Total Creatine Kinase (30-135) U/L CK-MB (CK-2) (<2.37) ng/mL CK-MB (CK-2) Rel Index (1.5-5.0) % Troponin I (0.01-0.034) ng/mL NT-Pro-B Natriuret Pep 51 (<450) pg/mL Total Protein (6.3-8.2) g/dL Albumin (3.5-5.0) g/dL Globulin (1.7-4.1) g/dL Albumin/Globulin Ratio (1.0-2.8) Procalcitonin (<0.5) ng/mL TSH (0.47-4.68) uIU/mL Urine Color Urine Appearance Urine pH (4.5-8.0) Ur Specific [place] (1.000-1.035) Urine Protein (Negative) Urine Glucose (UA) (Negative) g/dL Urine Ketones (NEGATIVE) Urine Occult Blood (Negative) Urine Nitrate (Negative) Urine Bilirubin (NEGATIVE) Urine Urobilinogen (0.2) E.U./dL Ur Leukocyte Esterase (NEGATIVE) Urine RBC (0-5/HPF) Urine WBC (0-5/HPF) Ur Squamous Epith Cells (0-5/HPF) Amorphous Sediment Urine Bacteria (None) Ur Culture Indicated? U Opiates 300ng/mL cut (Negative) Ur Oxycodone Screen (Negative) Urine Methadone Screen (Negative) Acetaminophen (10-30) ug/mL Ur Barbiturates Screen (Negative) U Tricyclic Antidepress (Negative) Ur Phencyclidine Scrn (Negative) Ur Amphetamines Screen (Negative) U Methamphetamines Scrn (Negative) Ur MDMA Scrn (Ecstasy) (Negative) U Benzodiazepines Scrn (Negative) Urine Cocaine Screen (Negative) U Marijuana (THC) Screen (Negative) SARS-CoV-2 (PCR) (Negative) 04/20/20 04/20/20 04/20/20 Range/Units 15:45 15:45 15:45 WBC (4.5-11.0) X10^3/uL RBC (4.0-5.2) X10^6/uL Hgb (12.0-16.0) g/dL Hct (36-46) % MCV (80-100) fL MCH (26-34) PG MCHC (30-36) % RDW (11.6-14.8) % Plt Count (150-400) X10^3/uL Neut % (Auto) (50-75) % Lymph % (Auto) (25-40) % [place] % (Auto) (3-14) % Eos % (Auto) (2-4) % Baso % (Auto) (0-2) % Neut # (Auto) (9908-4024) /uL Lymph # (Auto) (5939-6802) /uL [place] # (Auto) (0-900) /uL Eos # (Auto) (0-450) /uL Baso # (Auto) (0-100) /uL PT (10.1-12.7) SECONDS INR (0.9-1.3) APTT 32 (26.4-36.2) SECONDS Sodium 136 L (137-145) mmol/L Potassium 3.8 (3.4-5.1) mmol/L Chloride 102 (98-107) mmol/L Carbon Dioxide 27 (22-32) mmol/L BUN 35 H (7-17) mg/dL Creatinine 1.14 H (0.52-1.04) mg/dL Estimated GFR 46.0 L (>60) mL/min BUN/Creatinine Ratio 30.7 H (6-22) Glucose 143 H (80-110) mg/dL Lactate (0.7-2.1) mmol/L Calcium 10.5 H (8.4-10.2) mg/dL Total Bilirubin 0.6 (0.2-1.3) mg/dL AST 40 H (14-36) IU/L ALT 27 (<35) IU/L Alkaline Phosphatase 82 (38-126) U/L Total Creatine Kinase 283 H (30-135) U/L CK-MB (CK-2) 6.32 H (<2.37) ng/mL CK-MB (CK-2) Rel Index 2.2 (1.5-5.0) % Troponin I < 0.012 (0.01-0.034) ng/mL NT-Pro-B Natriuret Pep (<450) pg/mL Total Protein 7.3 (6.3-8.2) g/dL Albumin 4.2 (3.5-5.0) g/dL Globulin 3.1 (1.7-4.1) g/dL Albumin/Globulin Ratio 1.4 (1.0-2.8) Procalcitonin 0.14 (<0.5) ng/mL TSH (0.47-4.68) uIU/mL Urine Color Urine Appearance Urine pH (4.5-8.0) Ur Specific [place] (1.000-1.035) Urine Protein (Negative) Urine Glucose (UA) (Negative) g/dL Urine Ketones (NEGATIVE) Urine Occult Blood (Negative) Urine Nitrate (Negative) Urine Bilirubin (NEGATIVE) Urine Urobilinogen (0.2) E.U./dL Ur Leukocyte Esterase (NEGATIVE) Urine RBC (0-5/HPF) Urine WBC (0-5/HPF) Ur Squamous Epith Cells (0-5/HPF) Amorphous Sediment Urine Bacteria (None) Ur Culture Indicated? U Opiates 300ng/mL cut (Negative) Ur Oxycodone Screen (Negative) Urine Methadone Screen (Negative) Acetaminophen (10-30) ug/mL Ur Barbiturates Screen (Negative) U Tricyclic Antidepress (Negative) Ur Phencyclidine Scrn (Negative) Ur Amphetamines Screen (Negative) U Methamphetamines Scrn (Negative) Ur MDMA Scrn (Ecstasy) (Negative) U Benzodiazepines Scrn (Negative) Urine Cocaine Screen (Negative) U Marijuana (THC) Screen (Negative) SARS-CoV-2 (PCR) (Negative) 04/20/20 04/20/20 04/20/20 Range/Units 15:45 15:45 15:45 WBC (4.5-11.0) X10^3/uL RBC (4.0-5.2) X10^6/uL Hgb (12.0-16.0) g/dL Hct (36-46) % MCV (80-100) fL MCH (26-34) PG MCHC (30-36) % RDW (11.6-14.8) % Plt Count (150-400) X10^3/uL Neut % (Auto) (50-75) % Lymph % (Auto) (25-40) % [place] % (Auto) (3-14) % Eos % (Auto) (2-4) % Baso % (Auto) (0-2) % Neut # (Auto) (4375-4133) /uL Lymph # (Auto) (0413-6035) /uL [place] # (Auto) (0-900) /uL Eos # (Auto) (0-450) /uL Baso # (Auto) (0-100) /uL PT (10.1-12.7) SECONDS INR (0.9-1.3) APTT (26.4-36.2) SECONDS Sodium (137-145) mmol/L Potassium (3.4-5.1) mmol/L Chloride (98-107) mmol/L Carbon Dioxide (22-32) mmol/L BUN (7-17) mg/dL Creatinine (0.52-1.04) mg/dL Estimated GFR (>60) mL/min BUN/Creatinine Ratio (6-22) Glucose (80-110) mg/dL Lactate 1.7 (0.7-2.1) mmol/L Calcium (8.4-10.2) mg/dL Total Bilirubin (0.2-1.3) mg/dL AST (14-36) IU/L ALT (<35) IU/L Alkaline Phosphatase (38-126) U/L Total Creatine Kinase (30-135) U/L CK-MB (CK-2) (<2.37) ng/mL CK-MB (CK-2) Rel Index (1.5-5.0) % Troponin I (0.01-0.034) ng/mL NT-Pro-B Natriuret Pep (<450) pg/mL Total Protein (6.3-8.2) g/dL Albumin (3.5-5.0) g/dL Globulin (1.7-4.1) g/dL Albumin/Globulin Ratio (1.0-2.8) Procalcitonin (<0.5) ng/mL TSH 1.32 (0.47-4.68) uIU/mL Urine Color Urine Appearance Urine pH (4.5-8.0) Ur Specific [place] (1.000-1.035) Urine Protein (Negative) Urine Glucose (UA) (Negative) g/dL Urine Ketones (NEGATIVE) Urine Occult Blood (Negative) Urine Nitrate (Negative) Urine Bilirubin (NEGATIVE) Urine Urobilinogen (0.2) E.U./dL Ur Leukocyte Esterase (NEGATIVE) Urine RBC (0-5/HPF) Urine WBC (0-5/HPF) Ur Squamous Epith Cells (0-5/HPF) Amorphous Sediment Urine Bacteria (None) Ur Culture Indicated? U Opiates 300ng/mL cut (Negative) Ur Oxycodone Screen (Negative) Urine Methadone Screen (Negative) Acetaminophen (10-30) ug/mL Ur Barbiturates Screen (Negative) U Tricyclic Antidepress (Negative) Ur Phencyclidine Scrn (Negative) Ur Amphetamines Screen (Negative) U Methamphetamines Scrn (Negative) Ur MDMA Scrn (Ecstasy) (Negative) U Benzodiazepines Scrn (Negative) Urine Cocaine Screen (Negative) U Marijuana (THC) Screen (Negative) SARS-CoV-2 (PCR) Negative (Negative) 04/20/20 04/20/20 04/20/20 Range/Units 15:45 18:20 18:20 WBC (4.5-11.0) X10^3/uL RBC (4.0-5.2) X10^6/uL Hgb (12.0-16.0) g/dL Hct (36-46) % MCV (80-100) fL MCH (26-34) PG MCHC (30-36) % RDW (11.6-14.8) % Plt Count (150-400) X10^3/uL Neut % (Auto) (50-75) % Lymph % (Auto) (25-40) % [place] % (Auto) (3-14) % Eos % (Auto) (2-4) % Baso % (Auto) (0-2) % Neut # (Auto) (9424-4936) /uL Lymph # (Auto) (3829-5833) /uL [place] # (Auto) (0-900) /uL Eos # (Auto) (0-450) /uL Baso # (Auto) (0-100) /uL PT (10.1-12.7) SECONDS INR (0.9-1.3) APTT (26.4-36.2) SECONDS Sodium (137-145) mmol/L Potassium (3.4-5.1) mmol/L Chloride (98-107) mmol/L Carbon Dioxide (22-32) mmol/L BUN (7-17) mg/dL Creatinine (0.52-1.04) mg/dL Estimated GFR (>60) mL/min BUN/Creatinine Ratio (6-22) Glucose (80-110) mg/dL Lactate (0.7-2.1) mmol/L Calcium (8.4-10.2) mg/dL Total Bilirubin (0.2-1.3) mg/dL AST (14-36) IU/L ALT (<35) IU/L Alkaline Phosphatase (38-126) U/L Total Creatine Kinase (30-135) U/L CK-MB (CK-2) (<2.37) ng/mL CK-MB (CK-2) Rel Index (1.5-5.0) % Troponin I (0.01-0.034) ng/mL NT-Pro-B Natriuret Pep (<450) pg/mL Total Protein (6.3-8.2) g/dL Albumin (3.5-5.0) g/dL Globulin (1.7-4.1) g/dL Albumin/Globulin Ratio (1.0-2.8) Procalcitonin (<0.5) ng/mL TSH (0.47-4.68) uIU/mL Urine Color Yellow Urine Appearance Clear Urine pH 5.5 (4.5-8.0) Ur Specific [place] 1.025 (1.000-1.035) Urine Protein Trace H (Negative) Urine Glucose (UA) Negative (Negative) g/dL Urine Ketones Trace H (NEGATIVE) Urine Occult Blood 3+ H (Negative) Urine Nitrate Negative (Negative) Urine Bilirubin Negative (NEGATIVE) Urine Urobilinogen 0.2 (0.2) E.U./dL Ur Leukocyte Esterase Negative (NEGATIVE) Urine RBC 5-10/hpf H (0-5/HPF) Urine WBC 0-1/hpf (0-5/HPF) Ur Squamous Epith Cells 0-1 /hpf (0-5/HPF) Amorphous Sediment 1+ Urine Bacteria None seen (None) Ur Culture Indicated? Cult not indicated U Opiates 300ng/mL cut Negative (Negative) Ur Oxycodone Screen Negative (Negative) Urine Methadone Screen Negative (Negative) Acetaminophen < 10 L (10-30) ug/mL Ur Barbiturates Screen Negative (Negative) U Tricyclic Antidepress Negative (Negative) Ur Phencyclidine Scrn Negative (Negative) Ur Amphetamines Screen Negative (Negative) U Methamphetamines Scrn Negative (Negative) Ur MDMA Scrn (Ecstasy) Negative (Negative) U Benzodiazepines Scrn Negative (Negative) Urine Cocaine Screen Negative (Negative) U Marijuana (THC) Screen Negative (Negative) SARS-CoV-2 (PCR) (Negative) Imaging Data Chest x-ray: Radiologist's Impression: [address] [id number] ReportSigned Patient: Re Sidhu R#: [id number]: 1940cct:[id number]/Sex: 80 / FDate of Service: 04/20/20Lo: EDAccession Number: [id number] Procedure: XR chest 1V Ordering Provider: Cristina Encinas D.O. PROCEDURE: XR CHEST 1V INDICATIONS: confusion TECHNIQUE: One view of the chest was acquired. COMPARISON: [facility], CHEST 2 VIEW, 10/03/2007, 14:56. FINDINGS: Surgical changes and devices: Surgical clips are seen in the region of left breast. Lungs and pleura: Lungs are clear. No pleural effusions or pneumothorax. Mediastinum: Mediastinal contours appear normal. Heart size is normal. Bones and chest wall: No suspicious bony lesions. Overlying soft tissues appear unremarkable. IMPRESSION: No acute cardiopulmonary pathology. Dictated by: Wander Gonzalez M.D. on 04/20/2020 at 16:09 Approved by: Wander Gonzalez M.D. on 04/20/2020 at 16:11 CT scan - head: Radiologist's Impression: [address] [id number] Scan ReportSigned Patient: Re Sidhu R#: [id number]: 1940cct:[id number]/Sex: 80 / FDate of Service: 04/20/20Loc: EDAccession Number: [id number] Procedure: CT head/brain wo con Ordering Provider: Cristina Encinas D.O. PROCEDURE: CT HEAD/BRAIN WO CON INDICATIONS: confusion TECHNIQUE: Noncontrast 4.5 mm thick angled axial sections acquired from the foramen magnum to the vertex, with coronal and sagittal reformats. For radiation dose reduction, the following was used: automated exposure control, adjustment of mA and/or kV according to patient size. COMPARISON: None. FINDINGS: Image quality: Excellent. CSF spaces: Basal cisterns are patent. No extra-axial fluid collections. The ventricles are symmetric in size and shape. Brain: No intracranial bleeds or masses. There is cerebral volume loss for age, with resultant ventricular and sulcal prominence. There are periventricular and deep white matter chronic small vessel ischemic changes. There is intracranial internal carotid artery atherosclerosis. Skull and face: Calvarium and visualized facial bones appear intact, without suspicious lesions. Incidental note is made of hyperostosis frontalis. This is not considered to be pathologic in a woman of this age. Sinuses: Visualized sinuses and mastoids are clear. IMPRESSION: Unremarkable noncontrast head CT for age, without an imaging explanation found for the patient's presenting history of confusion. Dictated by: Darrell Maki M.D. on 04/20/2020 at 14:59 Approved by: Darrell Maki M.D. on 04/20/2020 at 15:00 ECG Data Attestation: I personally reviewed and interpreted this ECG as follows: Interpretation: Sinus tachycardia, rate of 110, OH 150 QRS of 90 and QTC of 452. No ST elevation depression noted. Patient has Q-waves in 2 3 and AVF. Nonspecific change. Patient has prior EKG from 04/23/2013 which appears similar other than tachycardia. MDM Narrative Medical decision making narrative: Patient accepted by Dr. Kilgore for observation, ROB, confusion, dehydration and hematuria. Patient NIH is 0, the patient did think that the bedside commode with a walker. She is able to answer year, month and similar questions without issue but she does have trouble with some day-to-day questions. Unclear source could does not appear to be a stroke her head CT initially was negative. She has no lateralizing symptoms. She had a recent UTI but only has hematuria on her repeat urine. She does have acute kidney injury, she has had too much narcotics in the past but rapid drug screen is negative. Full code for short term but does not want care home care/resusciation. Discharge Plan Departure Patient Disposition: Admitted as Observation Clinical Impression: Dehydration, Acute kidney injury, Acute confusion
[2020-04-20 15:53] LABS: Add Manual Diff / Slide Review NO; Basophils Absolute Auto 0 /uL (0-100); Basophils Percent Auto 0.4 % (0-2); Eosinophils Absolute Auto 200 /uL (0-450); Eosinophils Percent Auto 2.3 % (2-4); Hematocrit 43.4 % (36-46); Hemoglobin 14.7 g/dL (12.0-16.0); Lymphocytes Absolute Auto 2000 /uL (1100-4500); Lymphocytes Percent Auto 23.6 % (25-40); Mean Corpuscular HGB Conc 33.9 % (30-36); Mean Corpuscular Hemoglobin 30.6 PG (26-34); Mean Corpuscular Volume 90.2 fL (80-100); Monocytes Absolute Auto 700 /uL (0-900); Monocytes Percent Auto 8.8 % (3-14); Neutrophils Absolute Auto 5400 /uL (1500-7000); Neutrophils Percent Auto 64.9 % (50-75); Platelet Count 334 X10^3/uL (150-400); Red Blood Cell Count 4.81 X10^6/uL (4.0-5.2); Red Cell Distribution Width 14.1 % (11.6-14.8); White Blood Cell Count 8.4 X10^3/uL (4.5-11.0)
[2020-04-20] MEDS: SODIUM CHLORIDE 0.9% 1,000 ML 1000 ML IV ×2 (15:59→17:35)
[2020-04-20 16:01] LABS: Prothrombin Time 12.1 SECONDS (10.1-12.7)
[2020-04-20 16:09] LABS: PTT Partial Thromboplastin Tim 32 SECONDS (26.4-36.2)
[2020-04-20 16:15] LABS: Alanine Aminotransferase 27 IU/L (<35); Albumin 4.2 g/dL (3.5-5.0); Albumin Globulin Ratio 1.4 (1.0-2.8); Alkaline Phosphatase 82 U/L (38-126); Aspartate Aminotransferase 40 IU/L (14-36); BUN Creatinine Ratio 30.7 (6-22); Bilirubin Total 0.6 mg/dL (0.2-1.3); Blood Urea Nitrogen 35 mg/dL (7-17); Calcium 10.5 mg/dL (8.4-10.2); Carbon Dioxide 27 mmol/L (22-32); Chloride 102 mmol/L (98-107); Creatine Kinase 283 U/L (30-135); Globulin 3.1 g/dL (1.7-4.1); Glucose 143 mg/dL (80-110); HEMOLYSIS < 15 (0-50); Potassium 3.8 mmol/L (3.4-5.1); Sodium 136 mmol/L (137-145); Total Protein 7.3 g/dL (6.3-8.2)
[2020-04-20 16:16] LABS: Lactate (Lactic Acid) 1.7 mmol/L (0.7-2.1)
[2020-04-20 16:24] LABS: NT-proBNP (BNP-Adult 18+) 51 pg/mL (<450)
[2020-04-20 16:25] LABS: COVID19 -Nasal RAPID Negative (Negative)
[2020-04-20 16:27] LABS: Troponin I < 0.012 ng/mL (0.01-0.034)
[2020-04-20 16:30] LABS: CKMB % Relative Index 2.2 % (1.5-5.0); Creatine Kinase MB 6.32 ng/mL (<2.37)
[2020-04-20 16:32] LABS: Procalcitonin 0.14 ng/mL (<0.5)
[2020-04-20 16:50] LABS: TSH w/ Reflex to FT4 1.32 uIU/mL (0.47-4.68)
[2020-04-20 17:58] LABS: Acetaminophen < 10 ug/mL (10-30)
--- NOTE | 2020-04-20 18:21 | PC.NURSE ---
Pt up to commode and unable to understand that commode was a commode and not a walker despite verbal education. Back to bed. Continues to have confusion as to situation but alert and oriented to place, year, month and person.
[2020-04-20 18:29] LABS: Bacteria Urine None Seen
[2020-04-20 18:32] LABS: Appearance Urine UA CLEAR; Bilirubin Urine UA NEGATIVE (NEGATIVE); Color Urine UA YELLOW; Glucose Urine UA NEGATIVE (Negative); Ketones Urine UA TRACE (NEGATIVE); Leukocyte Esterase Urine UA NEGATIVE (NEGATIVE); Nitrite Urine UA NEGATIVE (Negative); Occult Blood Urine UA 3+ (Negative); Protein Urine UA TRACE (Negative); Specific Gravity Urine UA 1.025 (1.000-1.035); Urobilinogen Urine UA 0.2 E.U./dL (0.2); pH Urine UA 5.5 (4.5-8.0)
[2020-04-20 18:37] LABS: UR Morphine/Opiate cutoff 300 Negative (Negative); Ur Creatinine Normal (Normal); Ur Specific Gravity Normal (Normal); Urine Amphetamines Negative (Negative); Urine Barbiturates Negative (Negative); Urine Benzodiazepines Negative (Negative); Urine Cocaine Negative (Negative); Urine MDMA Negative (Negative); Urine Methadone Negative (Negative); Urine Methamphetamines Negative (Negative); Urine Oxycodone Negative (Negative); Urine Phencyclidine Negative (Negative); Urine Tetrahydrocannabinol Negative (Negative); Urine Tricyclic Antidepressant Negative (Negative); Urine pH Normal (Normal)
[2020-04-20 18:39] LABS: Amorphous Sediment Urine 1+; Culture Indicated Urine Cult Not Indicated; RBC Urine 5-10/HPF (0-5/HPF); Squamous Epithelial Cell Urine 0-1 /HPF (0-5/HPF); WBC Urine 0-1/HPF (0-5/HPF)
[2020-04-20] MEDS: SODIUM CHLORIDE 0.9% 1,000 ML 100 ML IV (18:52)
[2020-04-20] MEDS: SODIUM CHLORIDE 0.45% 1,000 ML 100 ML IV (23:11)
[2020-04-21 00:20] VITALS: BP 150/77; PULSE 80; RESP 18; TEMP 36.7; O2SAT 96
--- NOTE | 2020-04-21 02:50 | PC.NURSE ---
Pt arrives to unit in stable condition, transferred from ED bed to ACU bed via SBA. She is on room air, has a left wrist PIV that has NS infusing at 100mL/h but the IV canula is loose and falling out. Her and her are both unsure of her last BM. No c/o abdominal pain currently. She is alert and oriented x3, disoriented to day. Her blood sugar at 2030 was 85. She has an indwelling anderson in for urinary retention exhibited in the ED. She is on telemetry, showing NSR. No s/sx of distress. Left hand IV site discontinued. New IV site placed in left AC and now has 1/2NS infusing at 100mL/h per order.
[2020-04-21 05:55] VITALS: BP 143/77; PULSE 81; RESP 17; TEMP 36.2; O2SAT 97
[2020-04-21 06:18] LABS: Add Manual Diff / Slide Review NO; Basophils Absolute Auto 100 /uL (0-100); Eosinophils Absolute Auto 200 /uL (0-450); Eosinophils Percent Auto 3.1 % (2-4); Hematocrit 39.8 % (36-46); Lymphocytes Absolute Auto 2700 /uL (1100-4500); Lymphocytes Percent Auto 34.1 % (25-40); Mean Corpuscular HGB Conc 32.7 % (30-36); Mean Corpuscular Hemoglobin 29.9 PG (26-34); Mean Corpuscular Volume 91.2 fL (80-100); Monocytes Absolute Auto 800 /uL (0-900); Monocytes Percent Auto 10.4 % (3-14); Neutrophils Absolute Auto 4100 /uL (1500-7000); Neutrophils Percent Auto 51.4 % (50-75); Platelet Count 283 X10^3/uL (150-400); Red Blood Cell Count 4.37 X10^6/uL (4.0-5.2)
[2020-04-21 06:27] LABS: Blood Urea Nitrogen 21 mg/dL (7-17); Calcium 9.6 mg/dL (8.4-10.2); Carbon Dioxide 27 mmol/L (22-32); Chloride 107 mmol/L (98-107); Creatine Kinase 199 U/L (30-135); Estimated Glomerular Filt Rate > 60.0 mL/min (>60); Glucose 113 mg/dL (80-110); HEMOLYSIS < 15 (0-50); Potassium 4.4 mmol/L (3.4-5.1); Sodium 138 mmol/L (137-145)
[2020-04-21] MEDS: ENOXAPARIN 40 MG/0.4 ML SYRINGE SUBCUT (09:10)
[2020-04-21 09:36] VITALS: BP 149/66; PULSE 95; RESP 13; TEMP 36.3; O2SAT 97
[2020-04-21 12:00] VITALS: BP 156/79; PULSE 96; RESP 16; TEMP 36.7; O2SAT 97
--- NOTE | 2020-04-21 13:27 | PM.HP.1 ---
History of Present Illness History of Present Illness Date Patient Seen: 04/21/20 Time Patient Seen: 13:28 Chief complaint: possible medication reaction Narrative: This is a 80 year old female of Dr. Solis' was admitted from the ED secondary to acute kidney injury, confusion, dehydration, and hematuria. Recent urinary tract infection, saw Dr. Kilgore on 04/06/20 and prescribed Bactrim. Urine culture showed E coli, pansensitive. Saw MAYTE Hearn yesterday and reported feeling better, took urine cup home to test for cure, then, presented to the ED last night with reports of 2-3 days of worsening confusion. Denied dysuria, urgency, or polyuria. She does have ongoing hematuria, present per chart review since 2018. Cystoscopy at that time was reportedly clear. No flank pain. Afebrile. No nausea, vomiting, cough. Did have a fall last week when she was acutely ill with her UTI but did not hit her head. Vital signs upon presentation to the ED included temperature of 97.2?, pulse 122, respirations 22, blood pressure 133/66, O2 saturation 96% on room air. Workup significant for an elevated BUN at 35, creatinine at 1.14, CK at 283, CK-MB at 6.32, calcium at 10.5. She was rehydrated with 2 L of IV fluids and anderson placed as she did not make any urine after fluid boluses. She has been in observation overnight and is now draining straw colored urine. This morning, her creatinine has returned to normal at 0.60. Her BUN has also fallen to 21. CK is trending down, now 199. Notably, her chest x-ray and CT head/brain were within normal limits for age. EKG showed no new changes. She is oriented and conversing normally. She has eaten breakfast with no nausea or vomiting. Afebrile, with stable vital signs throughout. Past medical history: Diabetes mellitus type 2 Hypertension Hyperlipidemia Hypothyroidism Chronic urinary tract infections Gross hematuria Degenerative joint disease, knees GERD Neuropathy Urge incontinence Urinary urgency History of breast cancer Past surgical history: Hysterectomy, 1990 Lumpectomy Cataracts, bilateral Family history: Father: Diabetes, hypertension Mother: Diabetes Social history: , retired. Depressed during COVID secondary to lack of physical contact with her children. Patient History Medical History (Updated 04/20/20 @ 18:56 by Cristina Encinas DO) Diabetes Dyslipidemia Hypertension Family & Social History Social History: household members spouse Prior Living Arrangements House Safety & Behavioral: Feels Safe in Current Yes Environment Been Physically Hurt or No Threatened By a Person Suicidal Ideation Description None Suicide Plan Description No Plan Tobacco & Substance use: Smoking Status Never smoker alcohol intake never Meds Home Medications and Allergies Home Medications Medication Instructions Recorded Confirmed Type CALCIUM ACETATE (Phoslo) 1,200 mg PO Q DAY #0 07/13/09 04/20/20 History CHOLECALCIFEROL (VITAMIN D3) 2,000 iu PO Q DAY #0 07/13/09 04/20/20 History (Vitamin D3) OMEPRAZOLE 20 mg PO Q DAY #0 07/13/09 04/20/20 History Pravastatin Sodium (Pravachol) 40 mg PO Q DAY #0 07/13/09 04/20/20 History [FISH OIL] 1,000 mg Q DAY #0 07/13/09 04/20/20 History Allergies Allergy/AdvReac Type Severity Reaction Status Date / Time codeine [CODEINE] Allergy Mild RASH Verified 04/20/20 15:59 Review of Systems Review of Systems ROS: Yes All systems reviewed with the patient and are negative except as otherwise documented Exam Vital Signs (past 8 hours): - 04/21/20 05:55 04/21/20 09:36 Temperature 97.1 F L 97.3 F L Pulse Rate 81 95 H Respiratory Rate 17 13 Blood Pressure 143/77 H 149/66 H Pulse Oximetry 97 97 Oxygen Delivery Method Room Air Oxygen Flow Rate 0 Narrative Exam Narrative: GENERAL: Alert and oriented, appearing stated age and in no acute distress. HEENT: Head normocephalic/atraumatic. Pupils equal, round, and reactive to light and accomodation. Extraocular muscles intact. Tympanic membranes clear. Nasal mucosa moist, septum midline. Oral mucosa moist, no lesions. Neck soft and supple, no lymphadenopathy. LUNGS: Clear to ausculation bilaterally, no wheezes, rhonchi or rales. CV: Normal S1 and S2 with regular rate and rhythm, no audible murmurs, rubs or gallops. ABDOMEN: Soft, non-tender, non-distended, no organomegaly. Positive bowel sounds. : Anderson in place draining straw-colored urine. EXTREMITIES: No clubbing, cyanosis, or edema. NEURO: Cranial nerves II through XII grossly intact, no focal deficits. PSYCH: Alert and oriented x 3. SKIN: No concerning lesions. Objective Labs Result Diagrams: 04/21/20 05:35 04/21/20 05:35 Labs: Laboratory Results - last 24 hr 04/20/20 04/20/20 04/20/20 15:45 15:45 15:45 WBC 8.4 RBC 4.81 Hgb 14.7 Hct 43.4 MCV 90.2 MCH 30.6 MCHC 33.9 RDW 14.1 Plt Count 334 Neut % (Auto) 64.9 Lymph % (Auto) 23.6 L [place] % (Auto) 8.8 Eos % (Auto) 2.3 Baso % (Auto) 0.4 Neut # (Auto) 5400 Lymph # (Auto) 2000 [place] # (Auto) 700 Eos # (Auto) 200 Baso # (Auto) 0 PT 12.1 INR 1.0 APTT Sodium Potassium Chloride Carbon Dioxide BUN Creatinine Estimated GFR BUN/Creatinine Ratio Glucose Lactate Calcium Total Bilirubin AST ALT Alkaline Phosphatase Total Creatine Kinase CK-MB (CK-2) CK-MB (CK-2) Rel Index Troponin I NT-Pro-B Natriuret Pep 51 Total Protein Albumin Globulin Albumin/Globulin Ratio Procalcitonin TSH Urine Color Urine Appearance Urine pH Ur Specific [place] Urine Protein Urine Glucose (UA) Urine Ketones Urine Occult Blood Urine Nitrate Urine Bilirubin Urine Urobilinogen Ur Leukocyte Esterase Urine RBC Urine WBC Ur Squamous Epith Cells Amorphous Sediment Urine Bacteria Ur Culture Indicated? U Opiates 300ng/mL cut Ur Oxycodone Screen Urine Methadone Screen Acetaminophen Ur Barbiturates Screen U Tricyclic Antidepress Ur Phencyclidine Scrn Ur Amphetamines Screen U Methamphetamines Scrn Ur MDMA Scrn (Ecstasy) U Benzodiazepines Scrn Urine Cocaine Screen U Marijuana (THC) Screen SARS-CoV-2 (PCR) 04/20/20 04/20/20 04/20/20 15:45 15:45 15:45 WBC RBC Hgb Hct MCV MCH MCHC RDW Plt Count Neut % (Auto) Lymph % (Auto) [place] % (Auto) Eos % (Auto) Baso % (Auto) Neut # (Auto) Lymph # (Auto) [place] # (Auto) Eos # (Auto) Baso # (Auto) PT INR APTT 32 Sodium 136 L Potassium 3.8 Chloride 102 Carbon Dioxide 27 BUN 35 H Creatinine 1.14 H Estimated GFR 46.0 L BUN/Creatinine Ratio 30.7 H Glucose 143 H Lactate Calcium 10.5 H Total Bilirubin 0.6 AST 40 H ALT 27 Alkaline Phosphatase 82 Total Creatine Kinase 283 H CK-MB (CK-2) 6.32 H CK-MB (CK-2) Rel Index 2.2 Troponin I < 0.012 NT-Pro-B Natriuret Pep Total Protein 7.3 Albumin 4.2 Globulin 3.1 Albumin/Globulin Ratio 1.4 Procalcitonin 0.14 TSH Urine Color Urine Appearance Urine pH Ur Specific [place] Urine Protein Urine Glucose (UA) Urine Ketones Urine Occult Blood Urine Nitrate Urine Bilirubin Urine Urobilinogen Ur Leukocyte Esterase Urine RBC Urine WBC Ur Squamous Epith Cells Amorphous Sediment Urine Bacteria Ur Culture Indicated? U Opiates 300ng/mL cut Ur Oxycodone Screen Urine Methadone Screen Acetaminophen Ur Barbiturates Screen U Tricyclic Antidepress Ur Phencyclidine Scrn Ur Amphetamines Screen U Methamphetamines Scrn Ur MDMA Scrn (Ecstasy) U Benzodiazepines Scrn Urine Cocaine Screen U Marijuana (THC) Screen SARS-CoV-2 (PCR) 04/20/20 04/20/20 04/20/20 15:45 15:45 15:45 WBC RBC Hgb Hct MCV MCH MCHC RDW Plt Count Neut % (Auto) Lymph % (Auto) [place] % (Auto) Eos % (Auto) Baso % (Auto) Neut # (Auto) Lymph # (Auto) [place] # (Auto) Eos # (Auto) Baso # (Auto) PT INR APTT Sodium Potassium Chloride Carbon Dioxide BUN Creatinine Estimated GFR BUN/Creatinine Ratio Glucose Lactate 1.7 Calcium Total Bilirubin AST ALT Alkaline Phosphatase Total Creatine Kinase CK-MB (CK-2) CK-MB (CK-2) Rel Index Troponin I NT-Pro-B Natriuret Pep Total Protein Albumin Globulin Albumin/Globulin Ratio Procalcitonin TSH 1.32 Urine Color Urine Appearance Urine pH Ur Specific [place] Urine Protein Urine Glucose (UA) Urine Ketones Urine Occult Blood Urine Nitrate Urine Bilirubin Urine Urobilinogen Ur Leukocyte Esterase Urine RBC Urine WBC Ur Squamous Epith Cells Amorphous Sediment Urine Bacteria Ur Culture Indicated? U Opiates 300ng/mL cut Ur Oxycodone Screen Urine Methadone Screen Acetaminophen Ur Barbiturates Screen U Tricyclic Antidepress Ur Phencyclidine Scrn Ur Amphetamines Screen U Methamphetamines Scrn Ur MDMA Scrn (Ecstasy) U Benzodiazepines Scrn Urine Cocaine Screen U Marijuana (THC) Screen SARS-CoV-2 (PCR) Negative 04/20/20 04/20/20 04/20/20 15:45 18:20 18:20 WBC RBC Hgb Hct MCV MCH MCHC RDW Plt Count Neut % (Auto) Lymph % (Auto) [place] % (Auto) Eos % (Auto) Baso % (Auto) Neut # (Auto) Lymph # (Auto) [place] # (Auto) Eos # (Auto) Baso # (Auto) PT INR APTT Sodium Potassium Chloride Carbon Dioxide BUN Creatinine Estimated GFR BUN/Creatinine Ratio Glucose Lactate Calcium Total Bilirubin AST ALT Alkaline Phosphatase Total Creatine Kinase CK-MB (CK-2) CK-MB (CK-2) Rel Index Troponin I NT-Pro-B Natriuret Pep Total Protein Albumin Globulin Albumin/Globulin Ratio Procalcitonin TSH Urine Color Yellow Urine Appearance Clear Urine pH 5.5 Ur Specific [place] 1.025 Urine Protein Trace H Urine Glucose (UA) Negative Urine Ketones Trace H Urine Occult Blood 3+ H Urine Nitrate Negative Urine Bilirubin Negative Urine Urobilinogen 0.2 Ur Leukocyte Esterase Negative Urine RBC 5-10/hpf H Urine WBC 0-1/hpf Ur Squamous Epith Cells 0-1 /hpf Amorphous Sediment 1+ Urine Bacteria None seen Ur Culture Indicated? Cult not indicated U Opiates 300ng/mL cut Negative Ur Oxycodone Screen Negative Urine Methadone Screen Negative Acetaminophen < 10 L Ur Barbiturates Screen Negative U Tricyclic Antidepress Negative Ur Phencyclidine Scrn Negative Ur Amphetamines Screen Negative U Methamphetamines Scrn Negative Ur MDMA Scrn (Ecstasy) Negative U Benzodiazepines Scrn Negative Urine Cocaine Screen Negative U Marijuana (THC) Screen Negative SARS-CoV-2 (PCR) 04/21/20 04/21/20 05:35 05:35 WBC 8.0 RBC 4.37 Hgb 13.0 Hct 39.8 MCV 91.2 MCH 29.9 MCHC 32.7 RDW 14.0 Plt Count 283 Neut % (Auto) 51.4 Lymph % (Auto) 34.1 [place] % (Auto) 10.4 Eos % (Auto) 3.1 Baso % (Auto) 1.0 Neut # (Auto) 4100 Lymph # (Auto) 2700 [place] # (Auto) 800 Eos # (Auto) 200 Baso # (Auto) 100 PT INR APTT Sodium 138 Potassium 4.4 Chloride 107 Carbon Dioxide 27 BUN 21 H Creatinine 0.60 Estimated GFR > 60.0 BUN/Creatinine Ratio 35.0 H Glucose 113 H Lactate Calcium 9.6 Total Bilirubin AST ALT Alkaline Phosphatase Total Creatine Kinase 199 H CK-MB (CK-2) CK-MB (CK-2) Rel Index Troponin I NT-Pro-B Natriuret Pep Total Protein Albumin Globulin Albumin/Globulin Ratio Procalcitonin TSH Urine Color Urine Appearance Urine pH Ur Specific [place] Urine Protein Urine Glucose (UA) Urine Ketones Urine Occult Blood Urine Nitrate Urine Bilirubin Urine Urobilinogen Ur Leukocyte Esterase Urine RBC Urine WBC Ur Squamous Epith Cells Amorphous Sediment Urine Bacteria Ur Culture Indicated? U Opiates 300ng/mL cut Ur Oxycodone Screen Urine Methadone Screen Acetaminophen Ur Barbiturates Screen U Tricyclic Antidepress Ur Phencyclidine Scrn Ur Amphetamines Screen U Methamphetamines Scrn Ur MDMA Scrn (Ecstasy) U Benzodiazepines Scrn Urine Cocaine Screen U Marijuana (THC) Screen SARS-CoV-2 (PCR) Assessment & Plan Assessment & Plan narrative: 1. Acute kidney injury, resolved 2. Metabolic encephalopathy, acute, resolved 3. Acute dehydration, resolved 4. Hematuria, chronic PLAN: Patient was rehydrated both in the ED and overnight on the floor and is now mentating normally and kidney function has normalized. Will plan for discharge to home with instructions to increase water intake to 2-3 liters per day. Plan will be to follow up closely in outpatient clinic in 1 week.
--- NOTE | 2020-04-21 14:07 | P.DS_ITS ---
History of Present Illness History of Present Illness Date Patient Seen: 04/21/20 Time Patient Seen: 14:07 Chief complaint: possible medication reaction Narrative: This 80 year old female of Dr. Calle was admitted from the ED secondary to acute kidney injury, confusion, dehydration, and hematuria. Recent urinary tract infection, saw Dr. Kilgore on 04/06/20 and prescribed Bactrim. Urine culture showed E coli, pansensitive. Saw MAYTE Hearn yesterday and reported feeling better, took urine cup home to test for cure, then, presented to the ED last night with reports of 2-3 days of worsening confusion. Denied dysuria, urgency, or polyuria. She does have ongoing hematuria, present per chart review since 2018. Cystoscopy at that time was reportedly clear. No flank pain. Afebrile. No nausea, vomiting, cough. Did have a fall last week when she was acutely ill with her UTI but did not hit her head. Vital signs upon presentation to the ED included temperature of 97.2?, pulse 122, respirations 22, blood pressure 133/66, O2 saturation 96% on room air. Workup significant for an elevated BUN at 35, creatinine at 1.14, CK at 283, CK- MB at 6.32, calcium at 10.5. She was rehydrated with 2 L of IV fluids and anderson placed as she did not make any urine after fluid boluses. She has been in observation overnight and is now draining straw colored urine. This morning, her creatinine has returned to normal at 0.60. Her BUN has also fallen to 21. CK is trending down, now 199. Notably, her chest x-ray and CT head/brain were within normal limits for age. EKG showed no new changes. She is oriented and conversing normally. She has eaten breakfast with no nausea or vomiting. Afebrile, with stable vital signs throughout. Discharge Providers Provider Date of admission: 04/20/20 19:34 Discharge Date: 04/21/20 Primary care physician: Bulmaro Kilgore MD Consults: 04/20/20 20:10 Consult to Dietitian, Adult Routine Comment: Reason For Exam: H/O DM Discharge provider: Barby Mcgowan MD Summary Hospital Course Discharge Diagnosis: 1. Acute kidney injury, resolved 2. Acute metabolic encephalopathy, resolved 3. Acute dehydration, resolved 4. Chronic hematuria Hospital Course: Unremarkable. After overnight rehydration, morning labs showed a normalization of kidney function and return of baseline mental status. On day of discharge, patient is afebrile with stable vital signs throughout. She will need follow-up in 1 week in primary care clinic to ensure that she is maintaining her hydration. Time spent on Discharge and Coordination of post-hospital care: 35 minutes Status at Discharge Cognitive/behavioral status at discharge: at baseline, oriented Functional status at discharge: independent ambulation Overall status at discharge: patient is progressing back to baseline Exam Vital Signs (past 8 hours): - 04/21/20 09:36 04/21/20 12:00 Temperature 97.3 F L 98.0 F Pulse Rate 95 H 96 H Respiratory Rate 13 16 Blood Pressure 149/66 H 156/79 H Pulse Oximetry 97 97 Oxygen Delivery Method Room Air Oxygen Flow Rate 0 Narrative Exam Narrative: GENERAL: Alert and oriented, appearing stated age and in no acute distress. HEENT: Head normocephalic/atraumatic. Pupils equal, round, and reactive to l ight and accomodation. Extraocular muscles intact. Tympanic membranes clear. Nasal mucosa moist, septum midline. Oral mucosa moist, no lesions. Neck soft and supple, no lymphadenopathy. LUNGS: Clear to ausculation bilaterally, no wheezes, rhonchi or rales. CV: Normal S1 and S2 with regular rate and rhythm, no audible murmurs, rubs or gallops. ABDOMEN: Soft, non-tender, non-distended, no organomegaly. Positive bowel sounds. EXTREMITIES: No clubbing, cyanosis, or edema. NEURO: Cranial nerves II through XII grossly intact, no focal deficits. PSYCH: Alert and oriented x 3. SKIN: No concerning lesions. Objective Labs Result Diagrams: 04/21/20 05:35 04/21/20 05:35 Labs: Laboratory Results - last 24 hr 04/20/20 04/20/20 04/20/20 15:45 15:45 15:45 WBC 8.4 RBC 4.81 Hgb 14.7 Hct 43.4 MCV 90.2 MCH 30.6 MCHC 33.9 RDW 14.1 Plt Count 334 Neut % (Auto) 64.9 Lymph % (Auto) 23.6 L [place] % (Auto) 8.8 Eos % (Auto) 2.3 Baso % (Auto) 0.4 Neut # (Auto) 5400 Lymph # (Auto) 2000 [place] # (Auto) 700 Eos # (Auto) 200 Baso # (Auto) 0 PT 12.1 INR 1.0 APTT Sodium Potassium Chloride Carbon Dioxide BUN Creatinine Estimated GFR BUN/Creatinine Ratio Glucose Lactate Calcium Total Bilirubin AST ALT Alkaline Phosphatase Total Creatine Kinase CK-MB (CK-2) CK-MB (CK-2) Rel Index Troponin I NT-Pro-B Natriuret Pep 51 Total Protein Albumin Globulin Albumin/Globulin Ratio Procalcitonin TSH Urine Color Urine Appearance Urine pH Ur Specific [place] Urine Protein Urine Glucose (UA) Urine Ketones Urine Occult Blood Urine Nitrate Urine Bilirubin Urine Urobilinogen Ur Leukocyte Esterase Urine RBC Urine WBC Ur Squamous Epith Cells Amorphous Sediment Urine Bacteria Ur Culture Indicated? U Opiates 300ng/mL cut Ur Oxycodone Screen Urine Methadone Screen Acetaminophen Ur Barbiturates Screen U Tricyclic Antidepress Ur Phencyclidine Scrn Ur Amphetamines Screen U Methamphetamines Scrn Ur MDMA Scrn (Ecstasy) U Benzodiazepines Scrn Urine Cocaine Screen U Marijuana (THC) Screen SARS-CoV-2 (PCR) 04/20/20 04/20/20 04/20/20 15:45 15:45 15:45 WBC RBC Hgb Hct MCV MCH MCHC RDW Plt Count Neut % (Auto) Lymph % (Auto) [place] % (Auto) Eos % (Auto) Baso % (Auto) Neut # (Auto) Lymph # (Auto) [place] # (Auto) Eos # (Auto) Baso # (Auto) PT INR APTT 32 Sodium 136 L Potassium 3.8 Chloride 102 Carbon Dioxide 27 BUN 35 H Creatinine 1.14 H Estimated GFR 46.0 L BUN/Creatinine Ratio 30.7 H Glucose 143 H Lactate Calcium 10.5 H Total Bilirubin 0.6 AST 40 H ALT 27 Alkaline Phosphatase 82 Total Creatine Kinase 283 H CK-MB (CK-2) 6.32 H CK-MB (CK-2) Rel Index 2.2 Troponin I < 0.012 NT-Pro-B Natriuret Pep Total Protein 7.3 Albumin 4.2 Globulin 3.1 Albumin/Globulin Ratio 1.4 Procalcitonin 0.14 TSH Urine Color Urine Appearance Urine pH Ur Specific [place] Urine Protein Urine Glucose (UA) Urine Ketones Urine Occult Blood Urine Nitrate Urine Bilirubin Urine Urobilinogen Ur Leukocyte Esterase Urine RBC Urine WBC Ur Squamous Epith Cells Amorphous Sediment Urine Bacteria Ur Culture Indicated? U Opiates 300ng/mL cut Ur Oxycodone Screen Urine Methadone Screen Acetaminophen Ur Barbiturates Screen U Tricyclic Antidepress Ur Phencyclidine Scrn Ur Amphetamines Screen U Methamphetamines Scrn Ur MDMA Scrn (Ecstasy) U Benzodiazepines Scrn Urine Cocaine Screen U Marijuana (THC) Screen SARS-CoV-2 (PCR) 04/20/20 04/20/20 04/20/20 15:45 15:45 15:45 WBC RBC Hgb Hct MCV MCH MCHC RDW Plt Count Neut % (Auto) Lymph % (Auto) [place] % (Auto) Eos % (Auto) Baso % (Auto) Neut # (Auto) Lymph # (Auto) [place] # (Auto) Eos # (Auto) Baso # (Auto) PT INR APTT Sodium Potassium Chloride Carbon Dioxide BUN Creatinine Estimated GFR BUN/Creatinine Ratio Glucose Lactate 1.7 Calcium Total Bilirubin AST ALT Alkaline Phosphatase Total Creatine Kinase CK-MB (CK-2) CK-MB (CK-2) Rel Index Troponin I NT-Pro-B Natriuret Pep Total Protein Albumin Globulin Albumin/Globulin Ratio Procalcitonin TSH 1.32 Urine Color Urine Appearance Urine pH Ur Specific [place] Urine Protein Urine Glucose (UA) Urine Ketones Urine Occult Blood Urine Nitrate Urine Bilirubin Urine Urobilinogen Ur Leukocyte Esterase Urine RBC Urine WBC Ur Squamous Epith Cells Amorphous Sediment Urine Bacteria Ur Culture Indicated? U Opiates 300ng/mL cut Ur Oxycodone Screen Urine Methadone Screen Acetaminophen Ur Barbiturates Screen U Tricyclic Antidepress Ur Phencyclidine Scrn Ur Amphetamines Screen U Methamphetamines Scrn Ur MDMA Scrn (Ecstasy) U Benzodiazepines Scrn Urine Cocaine Screen U Marijuana (THC) Screen SARS-CoV-2 (PCR) Negative 04/20/20 04/20/20 04/20/20 15:45 18:20 18:20 WBC RBC Hgb Hct MCV MCH MCHC RDW Plt Count Neut % (Auto) Lymph % (Auto) [place] % (Auto) Eos % (Auto) Baso % (Auto) Neut # (Auto) Lymph # (Auto) [place] # (Auto) Eos # (Auto) Baso # (Auto) PT INR APTT Sodium Potassium Chloride Carbon Dioxide BUN Creatinine Estimated GFR BUN/Creatinine Ratio Glucose Lactate Calcium Total Bilirubin AST ALT Alkaline Phosphatase Total Creatine Kinase CK-MB (CK-2) CK-MB (CK-2) Rel Index Troponin I NT-Pro-B Natriuret Pep Total Protein Albumin Globulin Albumin/Globulin Ratio Procalcitonin TSH Urine Color Yellow Urine Appearance Clear Urine pH 5.5 Ur Specific [place] 1.025 Urine Protein Trace H Urine Glucose (UA) Negative Urine Ketones Trace H Urine Occult Blood 3+ H Urine Nitrate Negative Urine Bilirubin Negative Urine Urobilinogen 0.2 Ur Leukocyte Esterase Negative Urine RBC 5-10/hpf H Urine WBC 0-1/hpf Ur Squamous Epith Cells 0-1 /hpf Amorphous Sediment 1+ Urine Bacteria None seen Ur Culture Indicated? Cult not indicated U Opiates 300ng/mL cut Negative Ur Oxycodone Screen Negative Urine Methadone Screen Negative Acetaminophen < 10 L Ur Barbiturates Screen Negative U Tricyclic Antidepress Negative Ur Phencyclidine Scrn Negative Ur Amphetamines Screen Negative U Methamphetamines Scrn Negative Ur MDMA Scrn (Ecstasy) Negative U Benzodiazepines Scrn Negative Urine Cocaine Screen Negative U Marijuana (THC) Screen Negative SARS-CoV-2 (PCR) 04/21/20 04/21/20 05:35 05:35 WBC 8.0 RBC 4.37 Hgb 13.0 Hct 39.8 MCV 91.2 MCH 29.9 MCHC 32.7 RDW 14.0 Plt Count 283 Neut % (Auto) 51.4 Lymph % (Auto) 34.1 [place] % (Auto) 10.4 Eos % (Auto) 3.1 Baso % (Auto) 1.0 Neut # (Auto) 4100 Lymph # (Auto) 2700 [place] # (Auto) 800 Eos # (Auto) 200 Baso # (Auto) 100 PT INR APTT Sodium 138 Potassium 4.4 Chloride 107 Carbon Dioxide 27 BUN 21 H Creatinine 0.60 Estimated GFR > 60.0 BUN/Creatinine Ratio 35.0 H Glucose 113 H Lactate Calcium 9.6 Total Bilirubin AST ALT Alkaline Phosphatase Total Creatine Kinase 199 H CK-MB (CK-2) CK-MB (CK-2) Rel Index Troponin I NT-Pro-B Natriuret Pep Total Protein Albumin Globulin Albumin/Globulin Ratio Procalcitonin TSH Urine Color Urine Appearance Urine pH Ur Specific [place] Urine Protein Urine Glucose (UA) Urine Ketones Urine Occult Blood Urine Nitrate Urine Bilirubin Urine Urobilinogen Ur Leukocyte Esterase Urine RBC Urine WBC Ur Squamous Epith Cells Amorphous Sediment Urine Bacteria Ur Culture Indicated? U Opiates 300ng/mL cut Ur Oxycodone Screen Urine Methadone Screen Acetaminophen Ur Barbiturates Screen U Tricyclic Antidepress Ur Phencyclidine Scrn Ur Amphetamines Screen U Methamphetamines Scrn Ur MDMA Scrn (Ecstasy) U Benzodiazepines Scrn Urine Cocaine Screen U Marijuana (THC) Screen SARS-CoV-2 (PCR) [facility] Medical History (Updated 04/20/20 @ 18:56 by Cristina Encinas DO) Diabetes Dyslipidemia Hypertension Social History household members: spouse Smoking Status: Never smoker alcohol intake: never Discharge Plan Discharge Plan Patient Disposition: Home Discharge orders & Medications Prescriptions: Continued OMEPRAZOLE 20 mg PO Q DAY Qty: 0 RF: 0 Pravastatin Sodium (Pravachol) 40 mg PO Q DAY Qty: 0 RF: 0 CALCIUM ACETATE (Phoslo) 1,200 mg PO Q DAY Qty: 0 RF: 0 CHOLECALCIFEROL (VITAMIN D3) (Vitamin D3) 2,000 iu PO Q DAY Qty: 0 RF: 0 [FISH OIL] 1,000 mg Q DAY Qty: 0 RF: 0 Follow up/Referrals: Bulmaro Kilgore MD [Primary Care Provider] - Diet/Activity/Treatments Diet: Carb-consistent/Diabetic Diet comment: Increase water intake to 2-3 L per day Activity: as tolerated Skin/Wound/Dressing Care Report to your healthcare provider any signs of infection, such as:: chills, fever and increased pain Visit Report/Discharge Packet Instructions: DI for Dehydration -- Adult, How to Prevent Falls, DI for Urinary Retention in Women Discharge Data Primary Care Provider: Bulmaro Kilgore Attending Provider: Bulmaro Kilgore
[2020-04-21 15:20] VITALS: BP 143/79; PULSE 111; RESP 16; TEMP 36.6; O2SAT 96
--- NOTE | 2020-04-21 16:47 | PC.NURSE ---
Addendum entered by Parisa Nielson R.N. 04/21/20 19:35: Pt able to urinate 350cc clear yellow urine. Given D/C instructions to pt & spouse w/ apparent understanding Escorted by staff to waiting vehicle in stable condition. Original Note: Pt sitting in chair, Encouraged to drink fluid, awaiting to urinate before D/C home. Denies any discomfort. HL intact/patent. Call light w/in reach, in room.
--- NOTE | 2020-04-29 20:56 | PC.NURSE ---
Late Entry; NS infusion initiated 04/20 at 23:11, complete 04/21 at 09:12, in anticipation of discharge.
== END 2020-04-21 19:20 | disposition home or self-care (01) ==
LOC: ED 18:56 → AC 19:35
PROVIDERS: Admitting Provider Family Medicine; Emergency Provider Emergency Medicine; PCP Family Medicine; Referring Provider Family Medicine; Visit Provider Family Medicine
DX: G93.41 Metabolic encephalopathy (principal); R41.82 Altered mental status, unspecified; E86.0 Dehydration; R31.9 Hematuria, unspecified; E11.9 Type 2 diabetes mellitus without complications; Z79.84 Long term (current) use of oral hypoglycemic drugs; E78.5 Hyperlipidemia, unspecified; I10 Essential (primary) hypertension; N17.9 Acute kidney failure, unspecified; Z20.822 Contact with and (suspected) exposure to COVID-19
CPT/HCPCS: 36415; 51701; 70450; 71045; 80048; 80053; 80305; 80329; 81001; 82550; 82553; 82962; 83605; 83880; 84145; 84443; 84484; 85025; 85610; 85730; 87040; 87635; 93005; 96360; 96361; 96372; 99284; C9803; G0378; G0480; J1650; J7050

== ENCOUNTER 2020-04-22 14:17 | Emergency (ER) | payer MEDICARE, OTHER, SELFPAY ==
[2020-04-20 19:52] VITALS: BMI 32.8
[2020-04-22] VITALS (8 sets, daily range): BP systolic 127–163; BP diastolic 59–74; PULSE 93–104; RESP 15–22; TEMP 36.8; O2SAT 97–100
--- NOTE | 2020-04-22 | DI.CT.S_ITS ---
PROCEDURE: CT STROKE INDICATIONS: SLURRED SPEECH TECHNIQUE: Noncontrast 4.5 mm thick angled axial sections acquired from the foramen magnum to the vertex, with coronal reformats. For radiation dose reduction, the following was used: automated exposure control, adjustment of mA and/or kV according to patient size. COMPARISON: None. FINDINGS: Image quality: Excellent. CSF spaces: Basal cisterns are patent. No extra-axial fluid collections. The ventricles are symmetric in size and shape. Brain: No intracranial bleeds or masses. There is cerebral volume loss for age, with resultant ventricular and sulcal prominence. There are periventricular and deep white matter chronic small vessel ischemic changes. There is intracranial internal carotid artery atherosclerosis. Skull and face: Calvarium and visualized facial bones appear intact, without suspicious lesions. Sinuses: Bilateral mucous retention cysts seen in the maxillary antrum, left larger than right. IMPRESSION: No acute intracranial process. Findings were personally discussed with Dr. Weir from the emergency department 1430 hours on 04/22/20 This study fulfills neurological imaging criteria for inclusion or exclusion of acute stroke therapies based on available published neurological guidelines. Dictated by: Sadiq Levy M.D. on 04/22/2020 at 14:28 Approved by: Sadiq Levy M.D. on 04/22/2020 at 14:31
--- NOTE | 2020-04-22 14:19 | ED_ITS ---
HPI - General Adult General Chief complaint: Neuro Symptoms/Deficit Stated complaint: slurred speech Time Seen by Provider: 04/22/20 14:18 History of Present Illness HPI narrative: 80-year-old woman with a history of hypertension, hyperlipidemia, diabetes recent UTI and hospitalization presents with concern for stroke in that she had some confusion upon awakening this morning and some word-finding difficulties. All symptoms have resolved by the time of my exam in the emergency department. Patient had UTI symptoms and was treated with Bactrim on 04/06 with complete resolution of symptoms. Urine collected on 04/20 showed no growth. Patient had presented to the emergency room on the with complaints of confusion and mild dehydration. She was admitted for gentle rehydration, CT scan showed no acute findings and she was discharged home yesterday afternoon. Once home she took her usual nighttime medications including oxybutynin a 40 mg pill of pravastatin and a 20 mg pill of pravastatin and this morning and was confused, as she was a couple of days ago. Related Data Home Medications Medication Instructions Recorded Confirmed CALCIUM ACETATE (Phoslo) 1,200 mg PO Q DAY #0 07/13/09 04/20/20 CHOLECALCIFEROL (VITAMIN D3) 2,000 iu PO Q DAY #0 07/13/09 04/20/20 (Vitamin D3) OMEPRAZOLE 20 mg PO Q DAY #0 07/13/09 04/20/20 Pravastatin Sodium (Pravachol) 40 mg PO Q DAY #0 07/13/09 04/20/20 [FISH OIL] 1,000 mg Q DAY #0 07/13/09 04/20/20 Allergies Allergy/AdvReac Type Severity Reaction Status Date / Time codeine [CODEINE] Allergy Mild RASH Verified 04/20/20 15:59 Review of Systems Review of Systems Narrative: Pertinent positive and negative findings as per HPI Remainder of review of systems is otherwise unremarkable for Constitutional: Fevers, chills, ENT: No sore throat, neck pain, ear pain CV: Chest pain, dyspnea on exertion Respiratory: Cough, wheeze, dyspnea GI: Nausea, vomiting, diarrhea, : Dysuria, hematuria, flank pain Neuro: Syncope, dizziness, tingling Patient History Medical History Diabetes Dyslipidemia Hypertension Social History household members: spouse Smoking Status: Never smoker alcohol intake: never Exam Narrative Exam Narrative: General: Older appearing, in no acute distress. Well- nourished well-developed HEENT: Moist mucous membranes, normal sclera with reactive pupils, Neck: No JVD, supple Respiratory: Lungs are clear to auscultation, no wheezing no rales no rhonchi. Full and symmetrical air movement Cardiac: Regular rate and rhythm no murmurs no bruits Abdomen: Soft nontender good bowel tones, no flank pain Skin: Warm and dry, no rashes Neurologic: Speech fluency is normal, Grossly neurologically intact with no obvious asymmetries or abnormalities NIH=0 Extremities: No trauma, well perfused Psych: Cooperative, appropriate insight and affect Initial Vital Signs Initial Vital Signs: Vital Signs Temperature 98.2 F 04/22/20 14:17 Course Orders Ordered: ED Orders 04/22/20 14:20 Complete Blood Count AUTO DIFF Stat Partial Thromboplastin Time Stat Prothrombin Time INR Stat 04/22/20 15:25 Basic Metabolic Panel Stat Vital Signs Vital signs: Vital Signs - 8 hr 04/22/20 14:17 04/22/20 14:31 04/22/20 14:33 Temperature 98.2 F Pulse Rate 104 H Respiratory Rate 21 Blood Pressure 162/71 H 162/71 H Pulse Oximetry 99 04/22/20 14:34 04/22/20 15:00 04/22/20 15:30 Temperature Pulse Rate 103 H 98 H 97 H Respiratory Rate 19 22 18 Blood Pressure 160/74 H 153/70 H 163/59 H Pulse Oximetry 99 97 98 04/22/20 16:00 04/22/20 16:01 Temperature Pulse Rate 98 H 93 H Respiratory Rate 21 15 Blood Pressure 127/64 Pulse Oximetry 99 100 Medical Decision Making Medical Records Medical records reviewed: Yes I reviewed the patient's medical records. Lab Data Lab results reviewed: Yes I reviewed the patient's lab results. Result diagrams: 04/22/20 14:20 04/22/20 15:25 Labs: Lab Results 04/22/20 04/22/20 04/22/20 Range/Units 14:20 14:20 15:25 WBC 5.7 (4.5-11.0) X10^3/uL RBC 4.69 (4.0-5.2) X10^6/uL Hgb 14.3 (12.0-16.0) g/dL Hct 42.5 (36-46) % MCV 90.7 (80-100) fL MCH 30.4 (26-34) PG MCHC 33.5 (30-36) % RDW 14.1 (11.6-14.8) % Plt Count 293 (150-400) X10^3/uL Neut % (Auto) 60.6 (50-75) % Lymph % (Auto) 28.0 (25-40) % Hardee % (Auto) 7.5 (3-14) % Eos % (Auto) 3.1 (2-4) % Baso % (Auto) 0.8 (0-2) % Neut # (Auto) 3400 (6703-1330) /uL Lymph # (Auto) 1600 (5036-5289) /uL Hardee # (Auto) 400 (0-900) /uL Eos # (Auto) 200 (0-450) /uL Baso # (Auto) 0 (0-100) /uL PT 11.7 (10.1-12.7) SECONDS INR 1.0 (0.9-1.3) APTT 30 (26.4-36.2) SECONDS Sodium 139 (137-145) mmol/L Potassium 4.1 (3.4-5.1) mmol/L Chloride 104 (98-107) mmol/L Carbon Dioxide 30 (22-32) mmol/L BUN 14 (7-17) mg/dL Creatinine 0.51 L (0.52-1.04) mg/dL Estimated GFR > 60.0 (>60) mL/min BUN/Creatinine Ratio 27.5 H (6-22) Glucose 133 H (80-110) mg/dL Calcium 10.3 H (8.4-10.2) mg/dL Point of Care Testing Glucose POC 77 Point of care testing: Point of Care Testing Glucose POC 77 ECG Data Attestation: I personally reviewed and interpreted this ECG as follows: Interpretation: Sinus tachycardia at 101 Normal intervals, normal axis No acute ischemic changes MDM Narrative Medical decision making narrative: In reviewing recent visits, admission and listening to patient and her am wondering if polypharmacy and sundowning may be contributing to his much of her confusion is anything else. There does not appear to be any acute physiologic abnormalities that need to be addressed at this time. She has not obviously had a stroke. There is no obvious infectious etiology appreciated. In reviewing her medications she takes Synthroid with a normal TSH 2 days ago, omeprazole with no symptomatic reflux at all currently, metformin, losartan, Toprol, duloxetine, oxybutynin which she feels does not make any difference, pravastatin 2 different doses for a total of 60 mg, aspirin, vitamin-D. I am wondering if the nighttime oxybutynin and anticholinergic side effects may be c ontributing to confusion and with no complaints of reflux at all and continuous omeprazole dosing for a number of years I think that stopping the omeprazole may be appropriate. She would like to condensed the pravastatin to a single dose. Care is reviewed with Dr. Mcgowan to agrees with trying to minimize polypharmacy. She also feels that depression is contributing to each of these findings and I agree with that. Will have the patient discontinue omeprazole, oxybutynin, pravastatin and follow up with Dr Bentley as previously scheduled Apr 28. Will need to discuss depression, and adjustment to multiple changes in her life as well as frustrations and social isolation due to pandamic restrictions. Discharge Plan Departure Patient Disposition: Home Clinical Impression: Polypharmacy, Confusion Activity Restrictions/Additional Instructions: Thank you for coming in today Your workup again today was quite reassuring. There is no evidence of bladder infection, stroke, heart attack or other acute infection. In looking at your recent visits as well as your recent hospital stay, I am wondering if all of the medications that you are taking may be contributing to some of the confusion that you are having. I have spoken with Dr. Mcgowan, who took care of you in the hospital yesterday, and with your daughter, Ashley. We have decided to have you stop a number of your medications. Please stop your omeprazole, pravastatin, oxybutynin. You can take the baby aspirin and vitamin-D in the morning if you would like. Please make sure that you are using a pill dispenser so that is obvious which pills you have taken which day. Your depression may be contributing to some of the confusion as well. When you follow-up with Dr. Kilgore on the , you can discuss this and decide if the duloxetine dose is appropriate for you If you have additional concerns or problems, please feel free to return to the emergency room. Prescriptions: No Action OMEPRAZOLE 20 mg PO Q DAY Qty: 0 RF: 0 Pravastatin Sodium (Pravachol) 40 mg PO Q DAY Qty: 0 RF: 0 CALCIUM ACETATE (Phoslo) 1,200 mg PO Q DAY Qty: 0 RF: 0 CHOLECALCIFEROL (VITAMIN D3) (Vitamin D3) 2,000 iu PO Q DAY Qty: 0 RF: 0 [FISH OIL] 1,000 mg Q DAY Qty: 0 RF: 0 Referrals: Bulmaro Kilgore MD [Primary Care Provider] -
[2020-04-22 14:36] LABS: Add Manual Diff / Slide Review NO; Basophils Absolute Auto 0 /uL (0-100); Basophils Percent Auto 0.8 % (0-2); Eosinophils Absolute Auto 200 /uL (0-450); Eosinophils Percent Auto 3.1 % (2-4); Hematocrit 42.5 % (36-46); Hemoglobin 14.3 g/dL (12.0-16.0); Lymphocytes Absolute Auto 1600 /uL (1100-4500); Mean Corpuscular HGB Conc 33.5 % (30-36); Mean Corpuscular Hemoglobin 30.4 PG (26-34); Mean Corpuscular Volume 90.7 fL (80-100); Monocytes Absolute Auto 400 /uL (0-900); Monocytes Percent Auto 7.5 % (3-14); Neutrophils Absolute Auto 3400 /uL (1500-7000); Neutrophils Percent Auto 60.6 % (50-75); Platelet Count 293 X10^3/uL (150-400); Red Blood Cell Count 4.69 X10^6/uL (4.0-5.2); Red Cell Distribution Width 14.1 % (11.6-14.8); White Blood Cell Count 5.7 X10^3/uL (4.5-11.0)
[2020-04-22 14:51] LABS: Prothrombin Time 11.7 SECONDS (10.1-12.7)
--- NOTE | 2020-04-22 14:52 | PC.NURSE ---
reports that she was somewhat normal last night. unable to pin point last known normal . states speech was worse today. symptoms come and go for several days.
[2020-04-22 14:53] LABS: PTT Partial Thromboplastin Tim 30 SECONDS (26.4-36.2)
[2020-04-22 16:11] LABS: BUN Creatinine Ratio 27.5 (6-22); Blood Urea Nitrogen 14 mg/dL (7-17); Calcium 10.3 mg/dL (8.4-10.2); Carbon Dioxide 30 mmol/L (22-32); Chloride 104 mmol/L (98-107); Estimated Glomerular Filt Rate > 60.0 mL/min (>60); Glucose 133 mg/dL (80-110); HEMOLYSIS 25 (0-50); Potassium 4.1 mmol/L (3.4-5.1); Sodium 139 mmol/L (137-145)
== END 2020-04-22 17:02 | disposition home or self-care (01) ==
PROVIDERS: Emergency Provider Emergency Medicine; PCP Family Medicine
DX: R41.0 Disorientation, unspecified (principal); Z79.899 Other long term (current) drug therapy; R07.9 Chest pain, unspecified; E11.9 Type 2 diabetes mellitus without complications; E78.5 Hyperlipidemia, unspecified; I10 Essential (primary) hypertension
CPT/HCPCS: 36415; 70450; 80048; 82962; 85025; 85610; 85730; 93005; 99284

== ENCOUNTER → 2020-04-30 15:00 | Outpatient (CLI) | payer MEDICARE, OTHER, SELFPAY ==
[2020-04-20 19:52] VITALS: BMI 32.8
--- NOTE | 2020-04-30 | DI.MRI.S_ITS ---
PROCEDURE: MR HEAD/BRAIN WO/W CON INDICATIONS: Other symptoms and signs involving cognitive functions and a TECHNIQUE: Noncontrast axial T1 spin echo, axial T2 fast spin echo, sagittal and axial FLAIR, coronal T2 fast spin echo, axial gradient echo, axial diffusion and ADC through the brain. After the administration of contrast, axial and coronal T1 spin echo with fat saturation through the brain. COMPARISON: [facility], CT, CT STROKE, 04/22/2020, 14:13. FINDINGS: Image quality: Excellent. CSF spaces: Basal cisterns are patent. No extra-axial fluid collections. Ventricles are normal in size and shape. Brain: No midline shift. No intracranial bleeds or masses. No abnormal intracranial enhancement. There is mild cerebral volume loss for age. There is minimal periventricular white matter chronic small vessel ischemic change. The brainstem appears normal. Diffusion-weighted images demonstrate no acute ischemic insults. No chronic ischemic insults. Normal intravascular flow voids are present. Dural sinuses demonstrate normal postcontrast enhancement. Skull and face: Calvarial marrow is normal in signal. Orbits appear normal. Sinuses: Left maxillary sinus mucous retention cyst versus polyp. The mastoids appear clear. IMPRESSION: 1. No acute intracranial disease process. 2. No abnormal intracranial mass or mass effect. 3. No suspicious postcontrast enhancement. 4. Mild, diffuse cerebral volume loss. 5. Minimal periventricular and subcortical white matter chronic microvascular ischemic change. Dictated by: Astrid Fitzpatrick MD, PhD on 04/30/2020 at 16:57 Approved by: Astrid Fitzpatrick MD, PhD on 04/30/2020 at 17:02
== END ==
PROVIDERS: PCP Family Medicine; Referring Provider Family Medicine; Visit Provider Family Medicine
DX: R41.89 Other symptoms and signs involving cognitive functions and awareness (principal)
CPT/HCPCS: 70553; A9579

== ENCOUNTER → 2020-08-03 13:46 | Outpatient (CLI) | payer MEDICARE, OTHER, SELFPAY ==
[2020-04-20 19:52] VITALS: BMI 32.8
== END ==
PROVIDERS: PCP Family Medicine; Referring Provider Family Medicine; Visit Provider Family Medicine
DX: M85.852 Other specified disorders of bone density and structure, left thigh (principal); Z78.0 Asymptomatic menopausal state; E07.9 Disorder of thyroid, unspecified; E11.9 Type 2 diabetes mellitus without complications; Z85.3 Personal history of malignant neoplasm of breast; Z90.722 Acquired absence of ovaries, bilateral
CPT/HCPCS: 77080

== ENCOUNTER → 2020-12-29 19:03 | Outpatient (ROUT) | payer MEDICARE, OTHER, SELFPAY ==
[2020-04-20 19:52] VITALS: BMI 32.8
[2020-12-29 19:08] LABS: Appearance Urine UA CLOUDY; Bilirubin Urine UA NEGATIVE (NEGATIVE); Color Urine UA YELLOW; Glucose Urine UA NEGATIVE (Negative); Ketones Urine UA TRACE (NEGATIVE); Leukocyte Esterase Urine UA TRACE (NEGATIVE); Nitrite Urine UA NEGATIVE (Negative); Occult Blood Urine UA 3+ (Negative); Protein Urine UA 2+ (Negative); Specific Gravity Urine UA 1.025 (1.000-1.035); Urobilinogen Urine UA 0.2 E.U./dL (0.2)
[2020-12-29 19:33] LABS: Bacteria Urine Few (2-10); Culture Indicated Urine Specimen Cultured; RBC Urine >100/HPF (0-5/HPF); WBC Urine 5-10/HPF (0-5/HPF)
== END ==
PROVIDERS: PCP Family Medicine; Visit Provider Internal Medicine
DX: R31.21 Asymptomatic microscopic hematuria (principal)
CPT/HCPCS: 81001; 87086

== ENCOUNTER → 2021-01-03 10:47 | Outpatient (CLI) | payer MEDICARE, OTHER, SELFPAY ==
[2020-04-20 19:52] VITALS: BMI 32.8
--- NOTE | 2021-01-03 | DI.US.S_ITS ---
PROCEDURE: US RENAL COMPLETE INDICATIONS: MICROSCOPIC HEMATURIA. HISTORY OF KIDNEY STONES. TECHNIQUE: Real-time scanning was performed of the kidneys and bladder, with image documentation. COMPARISON: [facility], US, US RENAL COMPLETE, 12/31/2017, 8:22. FINDINGS: Kidneys: Kidneys are normal in size. Right kidney measures 13.8 cm long; left kidney measures 1.7 cm long. Right renal cortical thickness is 13.7 cm; left renal cortical thickness is 1.7 cm. The right kidney demonstrates multiple foci of decreased echogenicity the largest measuring 6.2 x 5.6 x 4.3 cm. In addition, there is a right superior pole focus of increased echogenicity with posterior shadowing measuring 2.6 x 2.1 cm. There is an ill-defined focus of decreased echogenicity within the superior left renal pole measuring approximately 2.5 x 1.9 x 2.0 cm. Left parapelvic cyst is present measuring 1.9 x 2.0 x 1.6 cm. Renal cortical echotexture is normal. No hydronephrosis. Bladder: Pre-void bladder volume is 0 mL. Post-void residual is 0 mL. Pre-void images demonstrate no intraluminal masses or stones. On pre-void images, neither ureteral jets are noted with color Doppler interrogation. (Of note, ureteral jets may not be detectable in up to 25% of cases due to insufficient differences in specific gravity between ureteral and bladder urine). Miscellaneous: No free pelvic fluid. Hepatic steatosis is present. Hepatomegaly is noted. Hepatic cyst is present measuring 1.0 x 1.3 x 1.1 cm. IMPRESSION: 1. Simple right renal and left parapelvic cysts. 2. Ill-defined focus of relative decreased echogenicity within the left kidney. This could represent a cyst. However, it is not well visualized. No priors are available for comparison. Three-month interval ultrasound follow-up or CT abdomen with contrast is recommended for further evaluation. 3. Nonobstructing right renal calculus. Dictated by: Marlen Neville M.D. on 01/03/2021 at 15:42 Approved by: Marlen Neville M.D. on 01/03/2021 at 15:46
== END ==
PROVIDERS: PCP Family Medicine; Referring Provider Internal Medicine; Visit Provider Internal Medicine
DX: R31.21 Asymptomatic microscopic hematuria (principal); Z87.442 Personal history of urinary calculi; N28.1 Cyst of kidney, acquired; N20.0 Calculus of kidney
CPT/HCPCS: 76770

== ENCOUNTER → 2021-04-28 14:24 | Outpatient (CLI) | payer MEDICARE, OTHER, SELFPAY ==
[2020-04-20 19:52] VITALS: BMI 32.8
--- NOTE | 2021-04-28 14:26 | DI.MG.S_ITS ---
BILATERAL DIGITAL SCREENING MAMMOGRAM 3D/2D WITH CAD: 04/28/2021 CLINICAL: Routine screening. Personal history of left breast cancer. Family history of breast cancer. Comparison is made to exams dated: 02/16/2020 mammogram, 12/27/2018 mammogram, and 12/25/2017 mammogram - [facility]. The tissue of both breasts is heterogeneously dense. This may lower the sensitivity of mammography. Current study was also evaluated with a Computer Aided Detection (CAD) system. There is irregular equal density architectural distortion with an indistinct margin in the left breast at 12 o'clock middle depth. No other significant masses, calcifications, or other findings are seen in either breast. IMPRESSION: INCOMPLETE: NEEDS ADDITIONAL IMAGING EVALUATION The irregular equal density architectural distortion in the left breast is indeterminate. Mediolateral and spot compression views as well as additional views with possible ultrasound are recommended. This exam was interpreted at Station ID: [id number]. NOTE: For mammograms, a report in lay terms will be sent to the patient. Approximately 15% of breast malignancies will not be visualized mammographically. In the management of a palpable breast mass, a negative mammogram must not discourage biopsy of a clinically suspicious lesion. Electronically Signed By: Suleman bean/dipika:04/28/2021 16:13:12 letter sent: Additional Imaging Needed ACR BI-RADS Category 0: Incomplete [id number]
== END ==
PROVIDERS: PCP Family Medicine; Referring Provider Family Medicine; Visit Provider Family Medicine
DX: R92.2 Inconclusive mammogram (principal); Z80.3 Family history of malignant neoplasm of breast; Z85.3 Personal history of malignant neoplasm of breast
CPT/HCPCS: 77063; 77067

== ENCOUNTER → 2021-09-06 13:17 | Outpatient (CLI) | payer MEDICARE, OTHER, SELFPAY ==
[2020-04-20 19:52] VITALS: BMI 32.8
--- NOTE | 2021-09-06 | DI.MG.S_ITS ---
UNILATERAL LEFT DIGITAL DIAGNOSTIC MAMMOGRAM 3D/2D WITH ADDITIONAL VIEWS: 09/06/2021 CLINICAL: Additional evaluation requested from prior study. Comparison is made to exams dated: 04/28/2021 mammogram, 02/16/2020 mammogram, 12/27/2018 mammogram, 11/27/2016 mammogram, 12/25/2017 mammogram, and 11/24/2014 mammogram - [facility]. The tissue of left breast is heterogeneously dense. This may lower the sensitivity of mammography. There is a irregular equal density architectural distortion with an indistinct margin in the left breast at 12 o'clock middle depth. This has been stable for multiple years. Post surgical clips are present in the medial left breast. No other significant masses or calcifications are seen in the breast. IMPRESSION: INCOMPLETE: NEEDS ADDITIONAL IMAGING EVALUATION The architectural distortion in the left breast most likely is a post-surgical scar or a radial scar, is stable, but remains indeterminate. An ultrasound is recommended to exclude underlying mass. This was performed immediately following this exam. This exam was interpreted at Station ID: [id number]. NOTE: For mammograms, a report in lay terms will be sent to the patient. Approximately 15% of breast malignancies will not be visualized mammographically. In the management of a palpable breast mass, a negative mammogram must not discourage biopsy of a clinically suspicious lesion. Electronically Signed By: Ju whitt/:09/06/2021 15:08:15 ACR BI-RADS Category 0: Incomplete [id number]
--- NOTE | 2021-09-06 13:23 | DI.US.S_ITS ---
LIMITED ULTRASOUND OF LEFT BREAST: 09/06/2021 CLINICAL: Patient returns today to evaluate a focal asymmetry in the left breast. Comparison is made to exams dated: 09/06/2021 mammogram, 04/28/2021 mammogram, 02/16/2020 mammogram, and 12/27/2018 mammogram - [facility]. Ultrasound of the left breast 11-1 o'clock region was performed. Flores scale images of the real-time examination were reviewed. No significant abnormalities were seen sonographically in the left breast. Specifically, no finding to correspond to the patient's stable screening mammographic abnormality. IMPRESSION: PROBABLY BENIGN There is no sonographic finding to corresponds to the mammogram finding, and no evidence of malignancy. A follow-up left mammogram in 6 months is recommended to demonstrate stability. Findings and recommendations were conveyed to the patient at time of exam. This exam was interpreted at Station ID: [id number]. Electronically Signed By: Ju whitt/:09/06/2021 15:12:01 letter sent: Followup Recommended Ultrasound BI-RADS: 3 Probably benign
== END ==
PROVIDERS: PCP Family Medicine; Referring Provider Family Medicine; Visit Provider Family Medicine
DX: R92.8 Other abnormal and inconclusive findings on diagnostic imaging of breast (principal); N64.89 Other specified disorders of breast
CPT/HCPCS: 76642; 77065; G0279

== ENCOUNTER → 2022-01-18 11:21 | Outpatient (CLI) | payer MEDICARE, OTHER, SELFPAY ==
[2020-04-20 19:52] VITALS: BMI 32.8
[2022-01-18 13:05] LABS: Appearance Urine UA CLEAR; Bilirubin Urine UA NEGATIVE (NEGATIVE); Color Urine UA YELLOW; Glucose Urine UA NEGATIVE (Negative); Ketones Urine UA NEGATIVE (NEGATIVE); Leukocyte Esterase Urine UA 2+ (NEGATIVE); Nitrite Urine UA NEGATIVE (Negative); Occult Blood Urine UA 3+ (Negative); Protein Urine UA 2+ (Negative); Specific Gravity Urine UA 1.015 (1.000-1.035); Urobilinogen Urine UA 0.2 E.U./dL (0.2)
[2022-01-18 13:15] LABS: Bacteria Urine Many (>30); Culture Indicated Urine Specimen Cultured; RBC Urine 10-30/HPF (0-5/HPF); Squamous Epithelial Cell Urine 5-10 /HPF (0-5/HPF); WBC Urine 10-30/HPF (0-5/HPF)
== END ==
PROVIDERS: PCP Family Medicine; Referring Provider Physician Assistant Medical; Visit Provider Physician Assistant Medical
DX: R39.9 Unspecified symptoms and signs involving the genitourinary system (principal)
CPT/HCPCS: 81001; 87077; 87086; 87186

== ENCOUNTER → 2022-02-21 15:29 | Outpatient (CLI) | payer MEDICARE, OTHER, SELFPAY ==
[2020-04-20 19:52] VITALS: BMI 32.8
[2022-02-21 18:03] LABS: Appearance Urine UA CLEAR; Bilirubin Urine UA NEGATIVE (NEGATIVE); Color Urine UA YELLOW; Glucose Urine UA NEGATIVE (Negative); Ketones Urine UA NEGATIVE (NEGATIVE); Leukocyte Esterase Urine UA NEGATIVE (NEGATIVE); Nitrite Urine UA NEGATIVE (Negative); Occult Blood Urine UA 3+ (Negative); Protein Urine UA 1+ (Negative); Urobilinogen Urine UA 0.2 E.U./dL (0.2)
[2022-02-21 18:52] LABS: Bacteria Urine None Seen; Culture Indicated Urine Cult Not Indicated; RBC Urine 10-30/HPF (0-5/HPF); Squamous Epithelial Cell Urine 0-1 /HPF (0-5/HPF); WBC Urine None Seen (0-5/HPF)
== END ==
PROVIDERS: PCP Family Medicine; Referring Provider Physician Assistant Medical; Visit Provider Physician Assistant Medical
DX: R39.9 Unspecified symptoms and signs involving the genitourinary system (principal)
CPT/HCPCS: 36415; 81001; 87086

== ENCOUNTER → 2022-06-08 16:24 | Outpatient (CLI) | payer MEDICARE, OTHER, SELFPAY ==
[2020-04-20 19:52] VITALS: BMI 32.8
[2022-06-08 17:03] LABS: Add Manual Diff / Slide Review NO; Basophils Absolute Auto 0 /uL (0-100); Basophils Percent Auto 0.5 % (0-2); Eosinophils Absolute Auto 300 /uL (0-450); Eosinophils Percent Auto 4.5 % (2-4); Hematocrit 42.8 % (36-46); Lymphocytes Absolute Auto 2300 /uL (1100-4500); Lymphocytes Percent Auto 34.3 % (25-40); Mean Corpuscular HGB Conc 32.6 % (30-36); Mean Corpuscular Hemoglobin 28.7 PG (26-34); Mean Corpuscular Volume 87.9 fL (80-100); Monocytes Absolute Auto 500 /uL (0-900); Monocytes Percent Auto 7.2 % (3-14); Neutrophils Absolute Auto 3500 /uL (1500-7000); Neutrophils Percent Auto 53.5 % (50-75); Platelet Count 320 X10^3/uL (150-400); Red Blood Cell Count 4.86 X10^6/uL (4.0-5.2); Red Cell Distribution Width 14.6 % (11.6-14.8); White Blood Cell Count 6.6 X10^3/uL (4.5-11.0)
[2022-06-08 17:56] LABS: Alanine Aminotransferase 20 IU/L (<35); Albumin 4.1 g/dL (3.5-5.0); Albumin Globulin Ratio 1.4 (1.0-2.8); Alkaline Phosphatase 83 U/L (38-126); Aspartate Aminotransferase 27 IU/L (14-36); BUN Creatinine Ratio 37.3 (6-22); Bilirubin Total 0.5 mg/dL (0.2-1.3); Blood Urea Nitrogen 22 mg/dL (7-17); Calcium 9.7 mg/dL (8.4-10.2); Carbon Dioxide 29 mmol/L (22-32); Chloride 103 mmol/L (98-107); Cholesterol 163 mg/dL (140-199); Estimated Glomerular Filt Rate > 60 mL/min (>60); Globulin 2.9 g/dL (1.7-4.1); Glucose 96 mg/dL (80-110); HDL Cholesterol 33 mg/dL (40-60); HEMOLYSIS < 15 (0-50); LDL Cholesterol Calculated 93 mg/dL (<100); Potassium 4.5 mmol/L (3.4-5.1); Sodium 140 mmol/L (137-145); Triglycerides 185 mg/dL (35-150)
[2022-06-08 18:21] LABS: TSH w/ Reflex to FT4 1.12 uIU/mL (0.47-4.68)
== END ==
PROVIDERS: PCP Family Medicine; Referring Provider Family Medicine; Visit Provider Family Medicine
DX: Z02.89 Encounter for other administrative examinations (principal); E11.9 Type 2 diabetes mellitus without complications; N28.1 Cyst of kidney, acquired; R41.89 Other symptoms and signs involving cognitive functions and awareness; G62.9 Polyneuropathy, unspecified; I10 Essential (primary) hypertension; E78.5 Hyperlipidemia, unspecified; E03.9 Hypothyroidism, unspecified; R41.9 Unspecified symptoms and signs involving cognitive functions and awareness; E78.9 Disorder of lipoprotein metabolism, unspecified
CPT/HCPCS: 36415; 80053; 80061; 83036; 84443; 85025

== ENCOUNTER 2023-02-14 13:51 | Emergency (ER) | payer MEDICARE, OTHER, SELFPAY ==
[2020-04-20 19:52] VITALS: BMI 32.8
[2023-02-14] VITALS (7 sets, daily range): BP systolic 133–152; BP diastolic 64–68; PULSE 93–104; RESP 20–25; TEMP 37.9; O2SAT 91–100; BMI 27.4
--- NOTE | 2023-02-14 13:56 | DI.CT.S_ITS ---
PROCEDURE: CT HEAD/BRAIN WO CON INDICATIONS: FALL 3 DAYS AGO TECHNIQUE: Noncontrast 4.5 mm thick angled axial sections acquired from the foramen magnum to the vertex, with coronal and sagittal reformats. For radiation dose reduction, the following was used: automated exposure control, adjustment of mA and/or kV according to patient size. COMPARISON: [facility], MR, MR HEAD/BRAIN WO/W CON, 04/30/2020, 15:28. [facility], CT, CT STROKE, 04/22/2020, 14:13. [facility], CR, XR CHEST 1V, 02/14/2023, 14:10. [facility], CT, CT HEAD/BRAIN WO CON, 04/20/2020, 15:43. FINDINGS: Image quality: Excellent. CSF spaces: Basal cisterns are patent. No extra-axial fluid collections. The ventricles are symmetric in size and shape. Brain: No intracranial bleeds or masses. There is cerebral volume loss for age, with resultant ventricular and sulcal prominence. There are periventricular and deep white matter chronic small vessel ischemic changes. There is intracranial internal carotid artery atherosclerosis. Skull and face: Calvarium and visualized facial bones appear intact, without suspicious lesions. Incidental note is made of hyperostosis frontalis. This is not considered to be pathologic in a woman of this age. Sinuses: Visualized sinuses and mastoids are clear. IMPRESSION: No acute intracranial hemorrhage is seen. No acute intracranial process is seen. Dictated by: Darrell Maki M.D. on 02/14/2023 at 13:53 Approved by: Darrell Maki M.D. on 02/14/2023 at 13:56
--- NOTE | 2023-02-14 13:56 | DI.RAD.S_ITS ---
PROCEDURE: XR CHEST 1V INDICATIONS: FEVER/AMS TECHNIQUE: One view of the chest was acquired. COMPARISON: [facility], CT, CT HEAD/BRAIN WO CON, 02/14/2023, 14:11. [facility], CR, XR CHEST 1V, 04/20/2020, 15:43. FINDINGS: Surgical changes and devices: Left-sided thoracic clips are seen, stable. Lungs and pleura: Lungs are clear. No pleural effusions or pneumothorax. Mediastinum: Mediastinal contours appear normal. Heart size is normal. Atherosclerotic calcification of the aortic arch is noted. Bones and chest wall: No suspicious bony lesions. Age-appropriate bony degenerative changes are seen. Overlying soft tissues appear unremarkable. IMPRESSION: Portable chest within normal limits for age. Dictated by: Darrell Maki M.D. on 02/14/2023 at 13:30 Approved by: Darrell Maki M.D. on 02/14/2023 at 13:30
--- NOTE | 2023-02-14 13:58 | ED_ITS ---
HPI - Altered Mental Status General Chief Complaint: Altered Mental Status Stated Complaint: Confusion, fall 3 days ago Time Seen by Provider: 02/14/23 13:52 History of Present Illness HPI narrative: 82-year-old female with history of dementia presents by EMS from home for worsening confusion and altered mental status. Patient fell out of bed 4 days ago and since then has been more confused and even less mobile than usual. Patient has a history of recurrent urinary tract infections and is concerned that patient may have a urinary tract infection. Patient is nonverbal on arrival. Related Data Home Medications Medication Instructions Recorded Confirmed CALCIUM ACETATE (Phoslo) 1,200 mg PO Q DAY ##0 07/13/09 04/20/20 CHOLECALCIFEROL (VITAMIN D3) 2,000 iu PO Q DAY ##0 07/13/09 04/20/20 (Vitamin D3) OMEPRAZOLE 20 mg PO Q DAY ##0 07/13/09 04/20/20 Pravastatin Sodium (Pravachol) 40 mg PO Q DAY ##0 07/13/09 04/20/20 [FISH OIL] 1,000 mg Q DAY ##0 07/13/09 04/20/20 Allergies Allergy/AdvReac Type Severity Reaction Status Date / Time codeine [CODEINE] Allergy Mild RASH Verified 04/20/20 15:59 Review of Systems Review of Systems Narrative: Unobtainable due to dementia Patient History Medical History Diabetes Dyslipidemia Hypertension Social History household members: spouse Smoking Status: Never smoker alcohol intake: never Smoking Status: Never smoker Substance Use Type: does not use Exam Initial Vital Signs Initial Vital Signs: Vital Signs Temperature 100.3 F H 02/14/23 14:13 Pulse Rate 103 H 02/14/23 14:13 Respiratory Rate 20 02/14/23 14:13 Blood Pressure 133/64 02/14/23 14:13 Pulse Oximetry 91 02/14/23 14:13 Oxygen Delivery Method Room Air 02/14/23 14:13 Const: Awake, alert, no acute distress Cardiac: regular rate, regular rhythm RESP: unlabored, clear bilaterally, no wheezing GI: Atraumatic, soft, nontender MSK: Atraumatic, full range of motion, pulses equal Skin: Warm, Dry, intact, no rashes Neuro: AO x1, CN II-XII grossly intact, moves all extremities, nonverbal Course Course Course Narrative: Nontoxic appearing patient with worsening confusion on top of significant dementia. Temperature 100.3? on arrival, empirically treated for sepsis with broad-spectrum antibiotics and IV fluids. We will check urinalysis for infection and we will scan brain due to history of head injury in the last 4 days. Orders Ordered: ED Orders 02/14/23 13:56 CT head/brain wo con Stat XR chest 1V Stat 02/14/23 14:05 Complete Blood Count AUTO DIFF Stat Comprehensive Metabolic Panel Stat Lactate (Lactic Acid) Stat NT-proBNP (BNP-Adult 18+) Stat PTT Partial Thromboplastin Aníbal Stat Procalcitonin Stat Prothrombin Time INR Stat Troponin & CK Cardiac Panel Stat 02/14/23 14:10 Urinalysis and Microscopic Stat 02/14/23 14:25 Covid-19 + FLU A/B + RSV - PCR Stat 02/14/23 14:43 Blood Culture Stat 02/14/23 14:46 EKG-12 Lead Stat Discontinued Medications Ceftriaxone Sodium 2,000 mg/ (Sodium Chloride) 100 mls @ 200 mls/hr IV NOW ONE Stop: 02/14/23 13:57 Last Infusion: 02/14/23 15:30 Dose: Infused Documented By: Admin: 02/14/23 14:48 Dose: 200 mls/hr Documented By: ERICA Sodium Chloride (Normal Saline 0.9%) 1,998 mls @ 666 mls/hr 30 ml/kg infuse over 3 hr (1998 ml) IV NOW ONE Stop: 02/14/23 16:55 Last Admin: 02/14/23 14:47 Dose: 666 mls/hr Documented By: ERICA Reevaluation(s) Reevaluation #1: Laboratory work is reviewed, unremarkable. Urinalysis is grossly contaminated, no overt signs of infection. CT of the brain is negative for acute findings. Chest x-ray shows no obvious infection. Family is now at bedside, they state that patient has had a progressive decline over the last several months, however it seemed to abruptly worsened after the fall out of bed 4 days ago. They have a primary care appointment in 5 days and they will talk to the primary care physician about the possibility of home health care. I reached out to the patient's primary care physician Dr. Dill, and informed him of the patient's current situation as well as the family's desire for home health care. He stated that he would ?start the ball rolling? on home health care for the patient and his office will reach out to the family to make sure that they make their primary care appointment. Family happy that PCP has been informed. ED return precautions discussed at bedside. Vital Signs Vital signs: Vital Signs - 8 hr 02/14/23 14:13 02/14/23 14:22 02/14/23 14:23 Temperature 100.3 F H Pulse Rate 103 H 104 H 102 H Respiratory Rate 20 Blood Pressure 133/64 Pulse Oximetry 91 100 93 Oxygen Delivery Method Room Air 02/14/23 14:24 02/14/23 14:24 02/14/23 14:30 Temperature Pulse Rate 104 H Respiratory Rate Blood Pressure 145/66 H 146/66 H Pulse Oximetry 92 Oxygen Delivery Method 02/14/23 14:30 02/14/23 15:00 02/14/23 15:00 Temperature Pulse Rate 97 H 93 H Respiratory Rate 20 25 H Blood Pressure 147/66 H Pulse Oximetry 93 91 Oxygen Delivery Method 02/14/23 15:30 02/14/23 15:30 Temperature Pulse Rate 94 H Respiratory Rate 25 H Blood Pressure 152/68 H Pulse Oximetry 91 Oxygen Delivery Method MDM - Altered Mental Status Lab Data 02/14/23 14:05 02/14/23 14:05 Labs: Lab Results 02/14/23 02/14/23 02/14/23 Range/Units 14:05 14:10 14:25 WBC 4.6 (4.5-11.0) X10^3/uL RBC 4.38 (4.0-5.2) X10^6/uL Hgb 12.8 (12.0-16.0) g/dL Hct 37.9 (36-46) % MCV 86.5 (80-100) fL MCH 29.2 (26-34) PG MCHC 33.7 (30-36) % RDW 13.6 (11.6-14.8) % Plt Count 256 (150-400) X10^3/uL Neut % (Auto) 58.1 (50-75) % Lymph % (Auto) 23.7 L (25-40) % [place] % (Auto) 16.3 H (3-14) % Eos % (Auto) 1.4 L (2-4) % Baso % (Auto) 0.5 (0-2) % Neut # (Auto) 2600 (6037-4887) /uL Lymph # (Auto) 1100 (3389-3175) /uL [place] # (Auto) 700 (0-900) /uL Eos # (Auto) 100 (0-450) /uL Baso # (Auto) 0 (0-100) /uL PT 13.0 H (10.1-12.7) SECONDS INR 1.1 (0.9-1.3) APTT 29 (26-36) SECONDS Sodium 135 L (137-145) mmol/L Potassium 3.7 (3.4-5.1) mmol/L Chloride 96 L (98-107) mmol/L Carbon Dioxide 30 (22-32) mmol/L BUN 21 H (7-17) mg/dL Creatinine 0.58 (0.52-1.04) mg/dL Estimated GFR > 60 (>60) mL/min BUN/Creatinine Ratio 36.2 H (6-22) Glucose 110 (80-110) mg/dL Lactate 1.8 (0.7-2.1) mmol/L Calcium 10.0 (8.4-10.2) mg/dL Total Bilirubin 0.5 (0.2-1.3) mg/dL AST 36 (14-36) IU/L ALT 28 (<35) IU/L Alkaline Phosphatase 72 (38-126) U/L Total Creatine Kinase 114 (30-135) U/L Troponin I < 0.012 (0.01-0.034) ng/mL NT-Pro-B Natriuret Pep 127 (<450) pg/mL Total Protein 7.3 (6.3-8.2) g/dL Albumin 4.1 (3.5-5.0) g/dL Globulin 3.2 (1.7-4.1) g/dL Albumin/Globulin Ratio 1.3 (1.0-2.8) Procalcitonin 0.18 (<0.5) ng/mL Urine Color Yellow Urine Appearance Clear Urine pH 5.0 (4.5-8.0) Ur Specific [place] >=1.030 H (1.000-1.035) Urine Protein 2+ H (Negative) Urine Glucose (UA) Negative (Negative) g/dL Urine Ketones Negative (NEGATIVE) Urine Occult Blood 3+ H (Negative) Urine Nitrate Negative (Negative) Urine Bilirubin Negative (NEGATIVE) Urine Urobilinogen 1.0 (0.2) E.U./dL Ur Leukocyte Esterase Negative (NEGATIVE) Urine RBC 10-30/hpf H (0-5/HPF) Urine WBC 1-5/hpf (0-5/HPF) Ur Squamous Epith Cells >30 /hpf H D (0-5/HPF) Urine Bacteria Occasional (0-1) (None) Ur Culture Indicated? Cult not indicated SARS-CoV-2 (PCR) Negative (Negative) Influenza A (RT-PCR) Flu a negative (NEGATIVE) Influenza B (RT-PCR) Flu b negative (NEGATIVE) RSV (PCR) Negative (Negative) Discharge Plan Departure Patient Disposition: Home Clinical Impression: Confusion, Advanced dementia Instructions: Dementia Prescriptions: No Action OMEPRAZOLE 20 mg PO Q DAY Qty: 0 Pravastatin Sodium (Pravachol) 40 mg PO Q DAY Qty: 0 CALCIUM ACETATE (Phoslo) 1,200 mg PO Q DAY Qty: 0 CHOLECALCIFEROL (VITAMIN D3) (Vitamin D3) 2,000 iu PO Q DAY Qty: 0 [FISH OIL] 1,000 mg Q DAY Qty: 0 Referrals: Henrique Dill MD [Primary Care Provider] - Stand Alone Forms: Patient Portal/API
[2023-02-14 14:25] LABS: Add Manual Diff / Slide Review NO; Basophils Absolute Auto 0 /uL (0-100); Basophils Percent Auto 0.5 % (0-2); Eosinophils Absolute Auto 100 /uL (0-450); Eosinophils Percent Auto 1.4 % (2-4); Hematocrit 37.9 % (36-46); Hemoglobin 12.8 g/dL (12.0-16.0); Lymphocytes Absolute Auto 1100 /uL (1100-4500); Lymphocytes Percent Auto 23.7 % (25-40); Mean Corpuscular HGB Conc 33.7 % (30-36); Mean Corpuscular Hemoglobin 29.2 PG (26-34); Mean Corpuscular Volume 86.5 fL (80-100); Monocytes Absolute Auto 700 /uL (0-900); Monocytes Percent Auto 16.3 % (3-14); Neutrophils Absolute Auto 2600 /uL (1500-7000); Neutrophils Percent Auto 58.1 % (50-75); Platelet Count 256 X10^3/uL (150-400); Red Blood Cell Count 4.38 X10^6/uL (4.0-5.2); Red Cell Distribution Width 13.6 % (11.6-14.8); White Blood Cell Count 4.6 X10^3/uL (4.5-11.0)
[2023-02-14 14:34] LABS: Appearance Urine UA CLEAR; Bilirubin Urine UA NEGATIVE (NEGATIVE); Color Urine UA YELLOW; Glucose Urine UA NEGATIVE (Negative); Ketones Urine UA NEGATIVE (NEGATIVE); Leukocyte Esterase Urine UA NEGATIVE (NEGATIVE); Nitrite Urine UA NEGATIVE (Negative); Occult Blood Urine UA 3+ (Negative); Protein Urine UA 2+ (Negative); Specific Gravity Urine UA >=1.030 (1.000-1.035)
[2023-02-14 14:37] LABS: INR 1.1 (0.9-1.3)
[2023-02-14 14:43] LABS: Lactate (Lactic Acid) 1.8 mmol/L (0.7-2.1)
[2023-02-14 14:44] LABS: Alanine Aminotransferase 28 IU/L (<35); Albumin 4.1 g/dL (3.5-5.0); Albumin Globulin Ratio 1.3 (1.0-2.8); Alkaline Phosphatase 72 U/L (38-126); Aspartate Aminotransferase 36 IU/L (14-36); BUN Creatinine Ratio 36.2 (6-22); Bilirubin Total 0.5 mg/dL (0.2-1.3); Blood Urea Nitrogen 21 mg/dL (7-17); Carbon Dioxide 30 mmol/L (22-32); Chloride 96 mmol/L (98-107); Creatine Kinase 114 U/L (30-135); Estimated Glomerular Filt Rate > 60 mL/min (>60); Globulin 3.2 g/dL (1.7-4.1); Glucose 110 mg/dL (80-110); HEMOLYSIS < 15 (0-50); PTT Partial Thromboplastin Tim 29 SECONDS (26-36); Potassium 3.7 mmol/L (3.4-5.1); Sodium 135 mmol/L (137-145); Total Protein 7.3 g/dL (6.3-8.2)
[2023-02-14] MEDS: cefTRIAXone 2,000 MG in SODIUM CHLORIDE 0.9% 100 ML 200 MG IV (14:48)
[2023-02-14 14:53] LABS: Bacteria Urine Occasional (0-1); Culture Indicated Urine Cult Not Indicated; RBC Urine 10-30/HPF (0-5/HPF); Squamous Epithelial Cell Urine >30 /HPF (0-5/HPF); WBC Urine 1-5/HPF (0-5/HPF)
[2023-02-14 14:55] LABS: NT-proBNP (BNP-Adult 18+) 127 pg/mL (<450); Troponin I < 0.012 ng/mL (0.01-0.034)
[2023-02-14 15:00] LABS: Procalcitonin 0.18 ng/mL (<0.5)
[2023-02-14 15:17] LABS: Influenza A - CEPHEID Flu A NEGATIVE (NEGATIVE); Influenza B - CEPHEID Flu B NEGATIVE (NEGATIVE); Respiratory Syncytial Virus Negative (Negative)
[2023-02-14 15:18] LABS: COVID-19 CEPHEID 4-PLEX PCR Negative (Negative)
== END 2023-02-14 16:45 | disposition home or self-care (01) ==
PROVIDERS: Emergency Provider Emergency Medicine; PCP Family Medicine
DX: R41.0 Disorientation, unspecified (principal); F03.90 Unspecified dementia, unspecified severity, without behavioral disturbance, psychotic disturbance, mood disturbance, and anxiety; R07.9 Chest pain, unspecified; W06.XXXD Fall from bed, subsequent encounter; Z20.822 Contact with and (suspected) exposure to COVID-19
CPT/HCPCS: 0241U; 36415; 70450; 71045; 80053; 81001; 82550; 83605; 83880; 84145; 84484; 85025; 85610; 85730; 87040; 93005; 96365; 99284; J0696

== ENCOUNTER 2023-02-23 17:26 | Emergency (ER) | payer MEDICARE, OTHER, SELFPAY ==
[2020-04-20 19:52] VITALS: BMI 32.8
[2023-02-23] VITALS (10 sets, daily range): BP systolic 108–137; BP diastolic 54–60; PULSE 81–87; RESP 18–20; TEMP 36.7; O2SAT 92–98; BMI 27.8
--- NOTE | 2023-02-23 17:45 | PC.NURSE ---
Chart faxed over from 's office was given to Dr Cardozo.
--- NOTE | 2023-02-23 18:10 | ED.GENADULT ---
HPI - General Adult General Chief complaint: Urogenital-Female Stated complaint: + e coli, UTI Time Seen by Provider: 02/23/23 17:45 Source: patient Mode of arrival: Ambulatory History of Present Illness HPI narrative: 82-year-old woman with a history of cognitive dysfunction, hyperlipidemia, recurrent bladder infections for which she is on suppressive Keflex, chronic hematuria for which she saw Dr. Jackson, urologist on February 18. He was concerned that she might have a bladder infection so did not do a cystoscopy at that time. Urine culture from that visit shows E coli [id number] units with ESBL component. Patient had been on nitrofurantoin which should have been effective but family was concerned that her cognitive changes were not improving. She was instructed by Dr. Jackson to try a week of Cipro however this interferes with her duloxetine. At that point he suggested she come to the ER for further evaluation. Patient is significantly demented and not able to contribute much to overall conversation. She is accompanied by her , daughter and son-in-law. No reports of fever, abdominal pain. Her daughter in law notes a significant change in cognitive function from 01/29. Related Data Home Medications Medication Instructions Recorded Confirmed CALCIUM ACETATE (Phoslo) 1,200 mg PO Q DAY ##0 07/13/09 04/20/20 CHOLECALCIFEROL (VITAMIN D3) 2,000 iu PO Q DAY ##0 07/13/09 04/20/20 (Vitamin D3) OMEPRAZOLE 20 mg PO Q DAY ##0 07/13/09 04/20/20 Pravastatin Sodium (Pravachol) 40 mg PO Q DAY ##0 07/13/09 04/20/20 [FISH OIL] 1,000 mg Q DAY ##0 07/13/09 04/20/20 Previous Rx's Medication Instructions Recorded fosfomycin tromethamine 3 gram 1 packet PO Q OTHER DAY 3 doses #1 02/23/23 oral packet ea Allergies Allergy/AdvReac Type Severity Reaction Status Date / Time codeine [CODEINE] Allergy Mild RASH Verified 04/20/20 15:59 Review of Systems Review of Systems Narrative: Pertinent positive and negative findings as per HPI Patient History Medical History (Updated 02/23/23 @ 21:54 by Karen Weir MD) Advanced dementia Diabetes Dyslipidemia Hypertension Social History household members: spouse Smoking Status: Never smoker alcohol intake: never Smoking Status: Never smoker Substance Use Type: does not use Exam Initial Vital Signs Initial Vital Signs: Vital Signs Temperature 98.1 F 02/23/23 17:38 Pulse Rate 87 02/23/23 17:38 Respiratory Rate 18 02/23/23 17:38 Blood Pressure 137/58 L 02/23/23 17:38 Pulse Oximetry 98 02/23/23 17:38 Oxygen Delivery Method Room Air 02/23/23 17:38 General: Chronically ill-appearing older woman in no acute distress. HEENT: Moist mucous membranes, normal sclera with reactive pupils, Respiratory: Lungs are clear to auscultation, no wheezing no rales no rhonchi. Full and symmetrical air movement Cardiac: Regular rate and rhythm no murmurs no bruits Abdomen: Soft, nontender, good bowel tones, no flank pain Skin: Warm and dry, no rashes Neurologic: Moving all extremities, no dysarthria however she is not oriented to person time or place. She is unable to complete a full sentence because she gets off track and wonders onto another topic. Extremities: No trauma, well perfused Psych: Significant confusion Course Orders Ordered: ED Orders 02/23/23 17:45 UA Complete [Urinalysis and Microscopic] Stat 02/23/23 18:00 CBC Auto Diff [Complete Blood Count AUTO DIFF] Stat CMP [Comprehensive Metabolic Panel] Stat Lactate (Lactic Acid) Stat 02/23/23 20:35 Blood Culture Stat Discontinued Medications Sodium Chloride (Normal Saline 0.9%) 1,000 mls @ 1,000 mls/hr IV BOLUS ONE Stop: 02/23/23 20:35 Last Infusion: 02/23/23 20:29 Dose: Infused Documented By: Admin: 02/23/23 19:52 Dose: 1,000 mls/hr Documented By: OW Vital Signs Vital signs: Vital Signs - 8 hr 02/23/23 17:38 02/23/23 18:02 02/23/23 18:30 Temperature 98.1 F Pulse Rate 87 85 83 Respiratory Rate 18 Blood Pressure 137/58 L 108/54 L 123/58 L Pulse Oximetry 98 94 93 Oxygen Delivery Method Room Air 02/23/23 19:00 02/23/23 19:30 02/23/23 20:00 Temperature Pulse Rate 81 83 Respiratory Rate 18 Blood Pressure 121/59 L 123/60 116/55 L Pulse Oximetry 92 94 Oxygen Delivery Method Room Air 02/23/23 20:00 Temperature Pulse Rate 84 Respiratory Rate 18 Blood Pressure Pulse Oximetry 94 Oxygen Delivery Method Medical Decision Making Lab Data 02/23/23 18:00 02/23/23 18:00 Labs: Lab Results 02/23/23 Range/Units 18:00 WBC 7.3 (4.5-11.0) X10^3/uL RBC 4.48 (4.0-5.2) X10^6/uL Hgb 12.9 (12.0-16.0) g/dL Hct 38.6 (36-46) % MCV 86.1 (80-100) fL MCH 28.7 (26-34) PG MCHC 33.4 (30-36) % RDW 14.2 (11.6-14.8) % Plt Count 498 H (150-400) X10^3/uL Neut % (Auto) 59.3 (50-75) % Lymph % (Auto) 28.6 (25-40) % [place] % (Auto) 7.9 (3-14) % Eos % (Auto) 3.2 (2-4) % Baso % (Auto) 1.0 (0-2) % Neut # (Auto) 4400 (6472-3540) /uL Lymph # (Auto) 2100 (1773-9488) /uL [place] # (Auto) 600 (0-900) /uL Eos # (Auto) 200 (0-450) /uL Baso # (Auto) 100 (0-100) /uL Sodium 138 (137-145) mmol/L Potassium 4.4 (3.4-5.1) mmol/L Chloride 102 (98-107) mmol/L Carbon Dioxide 26 (22-32) mmol/L BUN 23 H (7-17) mg/dL Creatinine 0.77 (0.52-1.04) mg/dL Estimated GFR > 60 (>60) mL/min BUN/Creatinine Ratio 29.9 H (6-22) Glucose 144 H (80-110) mg/dL Lactate 2.5 H (0.7-2.1) mmol/L Calcium 10.2 (8.4-10.2) mg/dL Total Bilirubin 0.5 (0.2-1.3) mg/dL AST 27 (14-36) IU/L ALT 25 (<35) IU/L Alkaline Phosphatase 69 (38-126) U/L Total Protein 6.9 (6.3-8.2) g/dL Albumin 3.9 (3.5-5.0) g/dL Globulin 3.0 (1.7-4.1) g/dL Albumin/Globulin Ratio 1.3 (1.0-2.8) MDM Narrative Medical decision making narrative: CC: Worsening cognitive dysfunction Complicating co-morbidities: Chronic and recurrent urinary tract infections, acute decline in cognitive function since mid January with no significant explanation found Data collected from: patient, daughter, , son-in-law and [id number] who is an internal medicine physician Social determinants of health that may influence the patients condition: Aging, cognitive decline and physical immobility, her is having increasing mobility and physical issues as well Medical records reviewed: Extensive records from [facility], prior urine cultures, ER notes from February 14 with full workup as well as primary care notes are all reviewed Differential considered: Worsening primary dementia, sepsis, worsening urinary tract infection with E coli with ESBL component. Exam documented above, pertinent findings include: Patient is significantly confused however she is in no acute physical distress vitals are entirely normal and her exam is completely benign Lab Test results independently reviewed as above. Pertinent findings: CBC is unremarkable with no evidence of leukocytosis Chemistries are equally reassuring with normal renal function. Lactic acid was initially elevated at 2.5 and has come down to 1.2 with no interventions Imaging studies independently reviewed: CT scan of the head was done on February 14 with no acute findings to explain her cognitive decline Consultations: Discussion with infectious disease doctor, [facility]. Discussion with patient's [id number] who is an internal medicine doctor in [place]. Message seeing Dr. Jackson, urologist at [facility] Treatments: Patient is given a L of fluid. She is given an outpatient prescription for fosfomycin Re-evaluations: Discussion: 82-year-old woman with dramatic decline in cognitive function over the last 3 weeks of unclear etiology. To date she is had a fairly thorough workup including scanning and labs. Concern was that she did have a bladder infection with E coli grown out on February 18 from a clean-catch urine that was not being fully treated with Macrobid despite positive sensitivities to this. Workup today is benign aside from the cognitive decline. After discussion with Infectious Disease doctor, a rather elegant solution in the form of a single dose of fosfomycin was recommended. Ciprofloxacin is also an option however she would need to be off her low-dose duloxetine for a couple of days prior to starting that. Will ask them to continue the Macrobid until they are able to belt picker the prescription for the fosfomycin. Will ask Dr. Jackson to contact them regarding restarting prophylactic antibiotics after she is completed the fosfomycin. They do have plans for family meetings conferences and are working with her primary care physician to arrange for home health, additional social work and do recognize that placement into a dementia facility may eventually be required. At this time she is safe for discharge home Greater than 45 minutes are spent in family consultation and review with multiple consultants. Discharge Plan Departure Patient Disposition: Home Clinical Impression: Advanced dementia, Urinary tract infection Instructions: DI for Urinary Tract Infection (UTI) Activity Restrictions/Additional Instructions: Thank you for coming in today With full workup including looking for signs of systemic infection, the blood work is very reassuring. There is no sign of sepsis, no renal failure and no indication for hospitalization at this time. Based on the urine culture from February 18 that grew out E coli 10-25,000 CFU with some resistance patterns that are concerning, she was started on Macrobid. That medication should be effective. I spoke with Winifred, who expressed her significant concern with the worsening cognitive function since mid January. I reviewed thoroughly with her all of the blood work from the [facility] visit on the , the urology visit on this and again labs and workup today. I discussed the urine cultures and findings with the infectious disease specialist at [facility]. He actually came up with a very elegant solution and suggested that we use fosfomycin as a single dose. This medicine should also be effective for the current E coli that was growing from the and cover the resistance concerns as well. Jacey please give Re all of her usual medications including her Macrobid/nitrofurantoin. Please continue this antibiotic until you are able to belt picker the dose of fosfomycin from the pharmacy, it was sent to [facility]. I will send a message to Dr. Jackson to see what he recommends regarding restarting prophylactic medications after the fosfomycin is completed. A single dose is appropriate course for a urinary tract infection and typically lasts for at least 3 days. If you find that you are getting worse or develop any new symptoms, please feel free to return to the emergency department for further evaluation. Prescriptions: New fosfomycin tromethamine 3 gram packet 1 packet PO Q OTHER DAY Qty: 1 0RF No Action OMEPRAZOLE 20 mg PO Q DAY Qty: 0 Pravastatin Sodium (Pravachol) 40 mg PO Q DAY Qty: 0 CALCIUM ACETATE (Phoslo) 1,200 mg PO Q DAY Qty: 0 CHOLECALCIFEROL (VITAMIN D3) (Vitamin D3) 2,000 iu PO Q DAY Qty: 0 [FISH OIL] 1,000 mg Q DAY Qty: 0 Referrals: Henrique Dill MD [Primary Care Provider] - Stand Alone Forms: Patient Portal/API
[2023-02-23 18:18] LABS: Add Manual Diff / Slide Review NO; Basophils Absolute Auto 100 /uL (0-100); Eosinophils Absolute Auto 200 /uL (0-450); Eosinophils Percent Auto 3.2 % (2-4); Hematocrit 38.6 % (36-46); Hemoglobin 12.9 g/dL (12.0-16.0); Lymphocytes Absolute Auto 2100 /uL (1100-4500); Lymphocytes Percent Auto 28.6 % (25-40); Mean Corpuscular HGB Conc 33.4 % (30-36); Mean Corpuscular Hemoglobin 28.7 PG (26-34); Mean Corpuscular Volume 86.1 fL (80-100); Monocytes Absolute Auto 600 /uL (0-900); Monocytes Percent Auto 7.9 % (3-14); Neutrophils Absolute Auto 4400 /uL (1500-7000); Neutrophils Percent Auto 59.3 % (50-75); Platelet Count 498 X10^3/uL (150-400); Red Blood Cell Count 4.48 X10^6/uL (4.0-5.2); Red Cell Distribution Width 14.2 % (11.6-14.8); White Blood Cell Count 7.3 X10^3/uL (4.5-11.0)
[2023-02-23 18:34] LABS: Lactate (Lactic Acid) 2.5 mmol/L (0.7-2.1)
[2023-02-23 18:35] LABS: Alanine Aminotransferase 25 IU/L (<35); Albumin 3.9 g/dL (3.5-5.0); Albumin Globulin Ratio 1.3 (1.0-2.8); Alkaline Phosphatase 69 U/L (38-126); Aspartate Aminotransferase 27 IU/L (14-36); BUN Creatinine Ratio 29.9 (6-22); Bilirubin Total 0.5 mg/dL (0.2-1.3); Blood Urea Nitrogen 23 mg/dL (7-17); Calcium 10.2 mg/dL (8.4-10.2); Carbon Dioxide 26 mmol/L (22-32); Chloride 102 mmol/L (98-107); Estimated Glomerular Filt Rate > 60 mL/min (>60); Glucose 144 mg/dL (80-110); HEMOLYSIS < 15 (0-50); Potassium 4.4 mmol/L (3.4-5.1); Sodium 138 mmol/L (137-145); Total Protein 6.9 g/dL (6.3-8.2)
[2023-02-23 19:48] LABS: Reflexed Lactate in 2 Hours Y
[2023-02-23] MEDS: SODIUM CHLORIDE 0.9% 1,000 ML 1000 ML IV (19:52)
[2023-02-23 21:06] LABS: Lactate 2HR (Lactic Acid Rflx) 1.2 mmol/L (0.7-2.1)
== END 2023-02-23 22:25 | disposition home or self-care (01) ==
PROVIDERS: Emergency Medicine; Emergency Provider Emergency Medicine; PCP Family Medicine
DX: N39.0 Urinary tract infection, site not specified (principal); F03.C0 Unspecified dementia, severe, without behavioral disturbance, psychotic disturbance, mood disturbance, and anxiety
CPT/HCPCS: 80053; 83605; 85025; 87040; 96360; 99283; 99284

== ENCOUNTER → 2023-09-18 11:46 | Outpatient (CLI) | payer MEDICARE, OTHER, SELFPAY ==
[2020-04-20 19:52] VITALS: BMI 32.8
[2023-09-18 12:59] LABS: Estimated Glomerular Filt Rate > 60 mL/min (>60)
--- NOTE | 2023-09-18 13:34 | DI.CT.S_ITS ---
PROCEDURE: CT IVP A/P W/WO INDICATIONS: Asymptomatic microscopic hematuria TECHNIQUE: Optional 5 mm thick noncontrast images acquired from the diaphragm to the symphysis pubis. After the administration of intravenous contrast, 5 mm thick images acquired from the diaphragm to the symphysis pubis after a 10-minute delay. 2 mm thick coronal and sagittal reformats were then performed of the kidneys and ureters. For radiation dose reduction, the following was used: automated exposure control, adjustment of mA and/or kV according to patient size. COMPARISON: [facility], US, US RENAL COMPLETE, 03/16/2023, 16:38. FINDINGS: Image quality: Diagnostic. Kidneys and Ureters: Both kidneys are normal size. 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 There is hyperdense material opacifying the dilated right upper pole calyx with Hounsfield units of about 550 to 570. Partial opacification versus 0.9 cm stone in another upper pole calyx Hounsfield units of 554. Punctate nonobstructing calcification in the lower pole left kidney. Cortical cysts arise from each kidney, right more so than left. Probable partially exophytic hyperdense cyst arising from the lateral right lower pole. Precontrast Hounsfield units of 50 and postcontrast Hounsfield units of 76. Ureter of the right upper pole moiety is diminutive and not opacified in the mid to distal portion. Right lower pole moiety ureter is normal caliber without stones or periureteric inflammation. Single left ureter with no stone, and no hydroureter. Bladder: Bladder wall thickness is normal. No calcified bladder stones. OTHER: Lower chest: Tiny hiatal hernia. Liver: Mild hepatic steatosis. Gallbladder: Hydropic gallbladder with a thin wall and no visible calcification. Biliary ducts: No biliary dilation. Pancreas: An ovoid peripherally calcified 1.4 cm tubular lesion in the pancreatic head. No pancreatic ductal dilatation Spleen: Size is within normal limits. Adrenal Glands: No adrenal nodules. Stomach and Bowel: Stomach and small bowel loops are normal caliber. Normal appendix. Increased quantity of solid stool present. Peritoneum: No abnormal intraperitoneal fluid. No free air. Ventral Wall: No hernia. Abdominal Nodes: No retroperitoneal or mesenteric adenopathy by size criteria. Vessels: Aorta and inferior vena cava are normal in size. PELVIS: Pelvic Organs: Uterus and ovaries are normal. Pelvic Nodes: Nonspecific, borderline 9 mm short axis right pelvic sidewall lymph node, 4/138. No other prominent pelvic lymph nodes. Miscellaneous: No inguinal hernias are seen. 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 Multilevel degenerative disc change. No suspicious bone lesions. IMPRESSION: Hyperdense material opacifying in dilated right upper pole collecting system lady without evidence of hydroureter. This is most likely a chronic process. Punctate nonobstructing left lower pole intrarenal calculus. No evidence of obstructive uropathy. Several bilateral cortical renal cysts and hyperdense renal mass. Dictated by: Ju Chiang M.D. on 09/18/2023 at 23:03 Approved by: Ju Chiang M.D. on 09/18/2023 at 23:29
== END ==
LOC: CT 11:47
PROVIDERS: Radiology Diagnostic Radiology; PCP Family Medicine; Referring Provider Urology; Visit Provider Urology
DX: N39.0 Urinary tract infection, site not specified (principal); R31.21 Asymptomatic microscopic hematuria; R41.0 Disorientation, unspecified; N28.89 Other specified disorders of kidney and ureter; N20.0 Calculus of kidney; N28.1 Cyst of kidney, acquired; K76.0 Fatty (change of) liver, not elsewhere classified
CPT/HCPCS: 36415; 74178; 82565; Q9967

== ENCOUNTER 2023-10-13 08:58 | Emergency (ER) | payer MEDICARE, OTHER, SELFPAY ==
[2020-04-20 19:52] VITALS: BMI 32.8
[2023-10-13] VITALS (7 sets, daily range): BP systolic 123–153; BP diastolic 62–72; PULSE 83–96; RESP 18–28; TEMP 36.9; O2SAT 94–98; BMI 27.3
--- NOTE | 2023-10-13 09:13 | DI.CT.S_ITS ---
PROCEDURE: CT CERVICAL SPINE WO CON INDICATIONS: fall, confusion TECHNIQUE: Noncontrast 3 mm thick sections acquired from the skull base to the T4 level. Sagittal and coronal reformats were then constructed. For radiation dose reduction, the following was used: automated exposure control, adjustment of mA and/or kV according to patient size. COMPARISON: None. FINDINGS: Image quality: Diagnostic Bones: Mild reversal of the normal cervical lordosis. Trace anterolisthesis of C4 on C5, likely degenerative. No evidence of traumatic subluxation. Vertebral body heights are well maintained. Moderate overall spondylotic changes. 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 No pathologic prevertebral soft tissue swelling. No apical pneumothorax. IMPRESSION: No displaced fracture or traumatic subluxation. If there is high concern for further derangement, consider MRI evaluation. Moderate spondylosis. Dictated by: Cesar Garcia M.D. on 10/13/2023 at 10:12 Approved by: Cesar Garcia M.D. on 10/13/2023 at 10:14
--- NOTE | 2023-10-13 09:13 | DI.RAD.S_ITS ---
PROCEDURE: XR CHEST 1V INDICATIONS: fall, confusion TECHNIQUE: One view of the chest was acquired. COMPARISON: [facility], CR, XR CHEST 1V, 02/14/2023, 14:10. [facility], CR, XR CHEST 1V, 04/20/2020, 15:43. FINDINGS: Surgical changes and devices: Left surgical clips are present. Lungs and pleura: Mildly prominent interstitium. No dense airspace disease or pleural effusion Mediastinum: Cardiomediastinal contours are unchanged. Heart size is within normal limits Bones and chest wall: Degenerative findings. IMPRESSION: Portable single view radiograph Mildly prominent interstitium could represent edema or atypical infection. Otherwise no acute abnormality. If there is high concern for occult injury, consider repeat radiography or cross-sectional imaging. Dictated by: Cesar Garcia M.D. on 10/13/2023 at 10:04 Approved by: Cesar Garcia M.D. on 10/13/2023 at 10:05
--- NOTE | 2023-10-13 09:13 | DI.CT.S_ITS ---
PROCEDURE: CT HEAD/BRAIN WO CON INDICATIONS: fall, confusion TECHNIQUE: Noncontrast 4.5 mm thick angled axial sections acquired from the foramen magnum to the vertex, with coronal and sagittal reformats. For radiation dose reduction, the following was used: automated exposure control, adjustment of mA and/or kV according to patient size. COMPARISON: [facility], CT, CT HEAD/BRAIN WO CON, 02/14/2023, 14:11. FINDINGS: Image quality: Diagnostic CSF spaces: Basal cisterns are patent. Lateral ventricles are symmetric. Volume: Vascular calcifications. Periventricular white matter disease is commonly seen with chronic microangiopathy. Volume loss is present. These findings are [id number] Brain: Falx calcification again seen. No acute hemorrhage. No gross loss of rodriguez-white differentiation. Craniofacial structures: No significant paranasal sinus opacity. IMPRESSION: No acute intracranial abnormality. Dictated by: Cesar Garcia M.D. on 10/13/2023 at 10:10 Approved by: Cesar Garcia M.D. on 10/13/2023 at 10:12
--- NOTE | 2023-10-13 09:13 | DI.RAD.S_ITS ---
PROCEDURE: XR PELVIS 1-2V INDICATIONS: fall, confusion TECHNIQUE: 1 view(s) of the pelvis acquired. COMPARISON: [facility], CT, CT IVP A/P W/WO, 09/18/2023, 13:33. FINDINGS: Bones: Advanced degenerative changes of the right hip. Moderate degenerative changes of the left hip. Calcific tendinopathy of the greater trochanters. No pubic diastasis. Positioning is suboptimal. The bones are also obscured by large fecal loading. Soft tissues: No suspicious calcifications. IMPRESSION: No acute radiographic abnormality on this very limited study. Advanced right and moderate left hip degenerative changes. If there is high concern for occult injury, consider repeat radiography or cross-sectional imaging. Large fecal loading. Dictated by: Cesar Garcia M.D. on 10/13/2023 at 10:06 Approved by: Cesar Garcia M.D. on 10/13/2023 at 10:07
--- NOTE | 2023-10-13 09:14 | EKG_ITS ---
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
--- NOTE | 2023-10-13 09:15 | ED.GENADULT ---
HPI - General Adult General Chief complaint: Weakness Stated complaint: fall Time Seen by Provider: 10/13/23 09:13 Source: patient, EMS, RN notes reviewed and old records reviewed Mode of arrival: EMS History of Present Illness HPI narrative: This is an 83-year-old with history of hypertension, dyslipidemia, dementia who presents with complaint of possible fall. No reported anticoagulation. Patient was found on the floor last seen last night. She lives alone and daughter checked on her and found her floor. Patient denies any pain. She states she had a headache last night, she denies any neck or back pain, no chest pain or shortness of breath. Denies any nausea or vomiting. Denies any abdominal back or flank pain. Denies any GI or urinary symptoms. States she has a bump lying on the right but is able to move all of them and denies pain or injury to her extremities. She states she normally ambulates independently but does use a walker. She can tell me her name, she does not get the year she states she lives with her grandfather who has 105 but is able to give me her age. She does have difficulty knowing the year and her location but per daughter she is at her baseline. Patient herself has no complaints currently. Related Data Home Medications Medication Instructions Recorded Confirmed CALCIUM ACETATE (Phoslo) 1,200 mg PO Q DAY ##0 07/13/09 04/20/20 CHOLECALCIFEROL (VITAMIN D3) 2,000 iu PO Q DAY ##0 07/13/09 04/20/20 (Vitamin D3) OMEPRAZOLE 20 mg PO Q DAY ##0 07/13/09 04/20/20 Pravastatin Sodium (Pravachol) 40 mg PO Q DAY ##0 07/13/09 04/20/20 [FISH OIL] 1,000 mg Q DAY ##0 07/13/09 04/20/20 Previous Rx's Medication Instructions Recorded fosfomycin tromethamine 3 gram 1 packet PO Q OTHER DAY 3 doses #1 02/23/23 oral packet ea ciprofloxacin HCl 500 mg tablet 500 mg PO BID #20 tabs 10/13/23 Allergies Allergy/AdvReac Type Severity Reaction Status Date / Time codeine [CODEINE] Allergy Mild RASH Verified 10/13/23 09:09 Review of Systems Review of Systems ROS Unobtainable: All systems reviewed & are unremarkable except as noted in HPI and below Patient History Medical History Advanced dementia Diabetes Dyslipidemia Hypertension Social History household members: spouse Smoking Status: Never smoker alcohol intake: never Smoking Status: Never smoker Substance Use Type: does not use Exam Narrative Exam Narrative: GEN: Patient appears in mild distress. HEAD: No evidence of trauma, no raccoon/Jarrett sign. NECK: Nontender, painless range of motion, trachea midline Neck Nexus criteria, no midline line tenderness, distracting injury, positive for altered mental status per family at baseline, no neuro deficit, recent EtOH. EYES: PERRLA, EOMI ENT: External inspection normal, trachea is midline, TM's are normal no hemotypanum, Nares are clear, no septal hematoma, no dental or oral injury, airway is normal and with normal occlusion, No bony tenderness RESP: Chest is nontender and has symmetric movement, no ecchymosis, breath sounds are normal no crackles, wheezes or rales CVS: Heart sounds are normal, no murmur noted, No JVD. ABG/GI: Nontender, soft, normal bowel sounds, no distention, no organomegaly, pelvic rock is negative NEURO: Oriented AOx3, neuro is grossly intact, sensation and motor is normal all 4 extremities moving, cranial nerves II through XII are intact, GCS is 14 PSYCH: Normal mood and affect SKIN: Intact, warm and dry, no crepitus and without decubitus BACK: No CVA tenderness, no vertebral tenderness, no step-off's, no crepitus EXT: Atraumatic, hips are nontender, no pedal edema, normal color and temperature, normal range of motion of extremities with normal tendon exam, 2+ pulses in all four extremities Initial Vital Signs Initial Vital Signs: Vital Signs Pulse Rate 96 H 10/13/23 09:04 Pulse Oximetry 96 10/13/23 09:04 Scores GCS [place] coma scale eye opening: Spontaneous Seema coma scale verbal response: Confused [place] coma scale motor response: Obey commands Seema coma scale total score: 14 Nexus Score for C-Spine Focal Neurologic deficit present: No Midline spinal tenderness present: No Altered level of conciousness present: Yes Intoxication present: No Distracting Injury Present: No Nexus Criteria for C-spine: 1 Course Orders Ordered: ED Orders 10/13/23 09:26 UA Complete [Urinalysis and Microscopic] Stat Urine Culture Stat Discontinued Medications Ciprofloxacin (Ciprofloxacin 250 Mg Tablet) 500 mg PO NOW ONE Stop: 10/13/23 11:09 Last Admin: 10/13/23 11:15 Dose: 500 mg Documented By: OSEI Vital Signs Vital signs: Vital Signs - 8 hr 10/13/23 10:30 10/13/23 10:30 10/13/23 11:00 Pulse Rate 84 90 Respiratory Rate 28 H 23 Blood Pressure 140/65 Pulse Oximetry 95 98 10/13/23 11:00 Pulse Rate Respiratory Rate Blood Pressure 123/62 Pulse Oximetry Medical Decision Making Lab Data 10/13/23 09:07 10/13/23 09:07 Labs: Lab Results 10/13/23 10/13/23 Range/Units 09:07 09:26 WBC 8.9 (4.5-11.0) X10^3/uL RBC 4.47 (4.0-5.2) X10^6/uL Hgb 13.2 (12.0-16.0) g/dL Hct 39.6 (36-46) % MCV 88.6 (80-100) fL MCH 29.5 (26-34) PG MCHC 33.3 (30-36) % RDW 14.5 (11.6-14.8) % Plt Count 295 (150-400) X10^3/uL Neut % (Auto) 72.4 (50-75) % Lymph % (Auto) 16.1 L (25-40) % [place] % (Auto) 8.4 (3-14) % Eos % (Auto) 2.7 (2-4) % Baso % (Auto) 0.4 (0-2) % Neut # (Auto) 6500 (4395-2510) /uL Lymph # (Auto) 1400 (7947-6080) /uL [place] # (Auto) 700 (0-900) /uL Eos # (Auto) 200 (0-450) /uL Baso # (Auto) 0 (0-100) /uL PT 11.8 (9.4-12.5) SECONDS INR 1.0 (0.9-1.3) APTT 35 (25.1-36.5) SECONDS Sodium 141 (137-145) mmol/L Potassium 4.1 (3.4-5.1) mmol/L Chloride 106 (98-107) mmol/L Carbon Dioxide 28 (22-32) mmol/L BUN 30 H (7-17) mg/dL Creatinine 0.55 (0.52-1.04) mg/dL Estimated GFR > 60 (>60) mL/min BUN/Creatinine Ratio 54.5 H (6-22) Glucose 138 H (80-110) mg/dL Calcium 9.8 (8.4-10.2) mg/dL Total Bilirubin 0.8 (0.2-1.3) mg/dL AST 30 (14-36) IU/L ALT 14 (<35) IU/L Alkaline Phosphatase 99 (38-126) U/L Total Creatine Kinase 93 (30-135) U/L Total Protein 7.4 (6.3-8.2) g/dL Albumin 4.3 (3.5-5.0) g/dL Globulin 3.1 (1.7-4.1) g/dL Albumin/Globulin Ratio 1.4 (1.0-2.8) Lipase 128 (23-300) U/L Urine Color Yellow Urine Appearance Clear Urine pH 5.0 (4.5-8.0) Ur Specific [place] 1.020 (1.000-1.035) Urine Protein 1+ H (Negative) Urine Glucose (UA) Negative (Negative) g/dL Urine Ketones Negative (NEGATIVE) Urine Occult Blood 1+ H (Negative) Urine Nitrate Positive H (Negative) Urine Bilirubin Negative (NEGATIVE) Urine Urobilinogen 0.2 (0.2) E.U./dL Ur Leukocyte Esterase Negative (NEGATIVE) Urine RBC 5-10/hpf H (0-5/HPF) Urine WBC 0-1/hpf (0-5/HPF) Ur Squamous Epith Cells None seen D (0-5/HPF) Urine Bacteria Occasional (0-1) (None) Ur Culture Indicated? Specimen cultured Vol Urine Centrifuged 10ml (spun) ECG Data Attestation: I personally reviewed and interpreted this ECG as follows: Prior ECG tracings: available for review Interpretation: Sinus rhythm rate of 94 [place] 160 QRS of 96 QTC of 460, no acute ST elevation depression noted. Patient has prior from 02/14/2023 which appears similar. MDM Narrative Medical decision making narrative: 83-year-old female suspected ground level fall, patient has baseline dementia unable to give much history but indicates she likely fell. She has no complaints currently but was found on the floor unable to get up. Labs count 8.9 hemoglobin of 13 platelets of 295, INR is 1, BUN, electrolytes are otherwise appropriate, glucose is 138, calcium 9.8 with negative LFTs total CK is 93. EKG shows sinus rhythm Urine urine is nitrite positive with 5-10 white cells negative leukocyte esterase 0-1 white cells 1 occasional bacteria. Consistent with UTI. 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 Chest x-ray mildly prominent interstitium could be edema or atypical infection otherwise no acute abnormality. Pelvic x-ray shows no acute change advanced right moderate left hip degenerative changes large fecal loading. Patient's family arrived notes she seems to be at baseline she did recently finish a course of antibiotics for UTI. Patient had fallen at home they heard her, investigated and patient refused to get off of the floor or be assisted off of the floor and stayed until this morning. Patient had ambulation trial which he passed without issue. Spoke with patient and family she would recently finished a prescription for antibiotics there is notes urine cultures available to see if there was any resistance. She is currently cephalexin 250 mg daily. I do not have access to her prior cultures bolus start her on Cipro for 10 days discussed family to follow up with Urology and/or primary care physician to see about adjusting her medications. Discharge Plan Departure Patient Disposition: Home Clinical Impression: Fall, Acute UTI Activity Restrictions/Additional Instructions: Follow up for recheck with your physician. Your urine today does show signs consistent with infection, please take antibiotics until completed. Talk with your urologist in your primary care about whether or not your prophylactic antibiotics should be changed continued. I do not have your most recent urine cultures but today's urine was sent for culture. Takes about 48-72 hours to result and if there is resistance we will call to change her antibiotic Prescription sent to [facility] in [place] Please return for fevers, new or worsening abdominal back or flank pain, alterations in mental status, persistent vomiting, new chest pain or shortness breath, back pain or other new or concerning changes. Prescriptions: New ciprofloxacin HCl 500 mg tablet 500 mg PO BID Qty: 20 0RF No Action OMEPRAZOLE 20 mg PO Q DAY Qty: 0 Pravastatin Sodium (Pravachol) 40 mg PO Q DAY Qty: 0 CALCIUM ACETATE (Phoslo) 1,200 mg PO Q DAY Qty: 0 CHOLECALCIFEROL (VITAMIN D3) (Vitamin D3) 2,000 iu PO Q DAY Qty: 0 [FISH OIL] 1,000 mg Q DAY Qty: 0 fosfomycin tromethamine 3 gram packet 1 packet PO Q OTHER DAY Qty: 1 0RF Referrals: Henrique Dill MD [Primary Care Provider] - Stand Alone Forms: Patient Portal/API
[2023-10-13 09:27] LABS: Add Manual Diff / Slide Review NO; Basophils Absolute Auto 0 /uL (0-100); Basophils Percent Auto 0.4 % (0-2); Eosinophils Absolute Auto 200 /uL (0-450); Eosinophils Percent Auto 2.7 % (2-4); Hematocrit 39.6 % (36-46); Hemoglobin 13.2 g/dL (12.0-16.0); Lymphocytes Absolute Auto 1400 /uL (1100-4500); Lymphocytes Percent Auto 16.1 % (25-40); Mean Corpuscular HGB Conc 33.3 % (30-36); Mean Corpuscular Hemoglobin 29.5 PG (26-34); Mean Corpuscular Volume 88.6 fL (80-100); Monocytes Absolute Auto 700 /uL (0-900); Monocytes Percent Auto 8.4 % (3-14); Neutrophils Absolute Auto 6500 /uL (1500-7000); Neutrophils Percent Auto 72.4 % (50-75); Platelet Count 295 X10^3/uL (150-400); Red Blood Cell Count 4.47 X10^6/uL (4.0-5.2); Red Cell Distribution Width 14.5 % (11.6-14.8); White Blood Cell Count 8.9 X10^3/uL (4.5-11.0)
[2023-10-13 09:29] LABS: Prothrombin Time 11.8 SECONDS (9.4-12.5)
[2023-10-13 09:31] LABS: PTT Partial Thromboplastin Tim 35 SECONDS (25.1-36.5)
[2023-10-13 09:33] LABS: Alanine Aminotransferase 14 IU/L (<35); Albumin 4.3 g/dL (3.5-5.0); Albumin Globulin Ratio 1.4 (1.0-2.8); Alkaline Phosphatase 99 U/L (38-126); Aspartate Aminotransferase 30 IU/L (14-36); BUN Creatinine Ratio 54.5 (6-22); Bilirubin Total 0.8 mg/dL (0.2-1.3); Blood Urea Nitrogen 30 mg/dL (7-17); Calcium 9.8 mg/dL (8.4-10.2); Carbon Dioxide 28 mmol/L (22-32); Chloride 106 mmol/L (98-107); Creatine Kinase 93 U/L (30-135); Estimated Glomerular Filt Rate > 60 mL/min (>60); Globulin 3.1 g/dL (1.7-4.1); Glucose 138 mg/dL (80-110); HEMOLYSIS 36 (0-50); Lipase 128 U/L (23-300); Potassium 4.1 mmol/L (3.4-5.1); Sodium 141 mmol/L (137-145); Total Protein 7.4 g/dL (6.3-8.2)
--- NOTE | 2023-10-13 09:35 | PC.NURSE ---
found on floor; unknown amount of time. ams. maybe baseline?
[2023-10-13 09:52] LABS: Appearance Urine UA CLEAR; Bilirubin Urine UA NEGATIVE (NEGATIVE); Color Urine UA YELLOW; Glucose Urine UA NEGATIVE (Negative); Ketones Urine UA NEGATIVE (NEGATIVE); Leukocyte Esterase Urine UA NEGATIVE (NEGATIVE); Nitrite Urine UA POSITIVE (Negative); Occult Blood Urine UA 1+ (Negative); Protein Urine UA 1+ (Negative); Urobilinogen Urine UA 0.2 E.U./dL (0.2)
--- NOTE | 2023-10-13 09:59 | PC.NURSE ---
Family stated pt just finished course of antibiotics; she is at her baseline mental status; pt was heard to have fallen, did not complain of pain, refused help to get up for 8 hours.
[2023-10-13 10:03] LABS: Urine Volume 10mL (spun)
[2023-10-13 10:04] LABS: Bacteria Urine Occasional (0-1); Culture Indicated Urine Specimen Cultured; RBC Urine 5-10/HPF (0-5/HPF); Squamous Epithelial Cell Urine None Seen (0-5/HPF); WBC Urine 0-1/HPF (0-5/HPF)
--- NOTE | 2023-10-13 10:41 | PC.NURSE ---
Pt ambulated w/ walker w/ standby assistance. Pt drinking yaritza stephen. Family at bedside
[2023-10-13] MEDS: CIPROFLOXACIN 250 MG TABLET 500 MG PO (11:15)
--- NOTE | 2023-10-13 11:30 | PC.NURSE ---
ambulates w/ walker at baseline. pt ambulating in ER at baseline. chronic right foot difficulty walking.
== END 2023-10-13 11:31 | disposition home or self-care (01) ==
PROVIDERS: Emergency Provider Emergency Medicine; PCP Family Medicine
DX: N39.0 Urinary tract infection, site not specified (principal); W19.XXXA Unspecified fall, initial encounter
CPT/HCPCS: 36415; 70450; 71045; 72125; 72170; 80053; 81001; 82550; 83690; 85025; 85610; 85730; 87086; 93005; 99283; 99284

== ENCOUNTER → 2023-11-06 12:57 | Outpatient (CLI) | payer MEDICARE, OTHER, SELFPAY ==
[2020-04-20 19:52] VITALS: BMI 32.8
== END ==
PROVIDERS: PCP Family Medicine; Referring Provider Urology; Visit Provider Urology
DX: R32 Unspecified urinary incontinence (principal); N39.0 Urinary tract infection, site not specified
CPT/HCPCS: 87086

== ENCOUNTER → 2024-05-05 15:31 | Outpatient (CLI) | payer MEDICARE, OTHER, SELFPAY ==
[2020-04-20 19:52] VITALS: BMI 32.8
== END ==
PROVIDERS: PCP Family Medicine; Referring Provider Urology; Visit Provider Urology
DX: N39.41 Urge incontinence (principal)
CPT/HCPCS: 87077; 87086; 87186

== ENCOUNTER 2024-09-22 11:43 | Emergency (ER) | payer MEDICARE, OTHER, SELFPAY ==
[2020-04-20 19:52] VITALS: BMI 32.8
[2024-09-22] VITALS (15 sets, daily range): BP systolic 141–185; BP diastolic 65–86; PULSE 76–119; RESP 17–24; TEMP 36.6–37.7; O2SAT 89–98; BMI 25.4
--- NOTE | 2024-09-22 11:55 | ED_ITS ---
HPI - Altered Mental Status General Chief Complaint: Altered Mental Status Stated Complaint: altered mental status/poss UTI Time Seen by Provider: 09/22/24 11:44 History of Present Illness HPI narrative: Patient brought in by ambulance from home. Blood sugar 137. had called ambulance because in the last 40 hours has had confusion and walking outdoors and requiring coaxing to come back in. Has had visual hallucinations as well. Family state she has behaved this way in the past with UTIs. No fall or injury. Patient is awake alert oriented self and date of only. She is following commands. Patient denies any headache chest pain abdominal pain back pain at this time. She does admit increased urination recently. Denies abdominal pain Related Data Home Medications ?Medication ?Instructions ?Recorded ?Confirmed CALCIUM ACETATE (Phoslo) 1,200 mg PO Q DAY ##0 04/20/20 CHOLECALCIFEROL (VITAMIN D3) 2,000 iu PO Q DAY ##0 12/0204/20/20 (Vitamin D3) OMEPRAZOLE 20 mg PO Q DAY ##0 07/13/09 04/20/20 Pravastatin Sodium (Pravachol) 40 mg PO Q DAY ##0 03/3 04/20/20 [FISH OIL] 1,000 mg Q DAY ##0 07/13/09 04/20/20 Previous Rx's ?Medication ?Instructions ?Recorded fosfomycin tromethamine 3 gram 1 packet PO Q OTHER DAY 3 doses #1 02/23/23 oral packet ea ciprofloxacin HCl 500 mg tablet 500 mg PO BID #20 tabs 10/13/23 cefdinir 300 mg capsule 300 mg PO BID #10 caps 09/22 Allergies Allergy/AdvReac Type Severity Reaction Status Date / Time codeine (CODEINE) Allergy Mild RASH Verified 09/22/24 11:49 Review of Systems Review of Systems Narrative: GENERAL: Negative chills, fatigue, malaise, fever, sweats. HEENT: Negative sinus pain, ear pain, sore throat RESPIRATORY: Negative dyspnea, cough CARDIOVASCULAR: Negative chest pain, palpitations GASTROINTESTINAL: Negative vomiting, nausea, abdominal pain : Positive dysuria, frequency, negative hematuria MUSCULOSKELETAL: Negative muscle or bony pain SKIN: Negative rash, skin lesions NEUROLOGIC: Negative weakness, numbness, positive confusion ROS Unobtainable: All systems reviewed & are unremarkable except as noted in HPI and below Patient History Medical History Advanced dementia Diabetes Dyslipidemia Hypertension Social History household members: spouse Smoking Status: Unknown if ever smoked alcohol intake: never Exam Narrative Exam Narrative: GENERAL: in no distress, not toxic not dyspneic HEAD: Normocephalic. EYES: Pupils equal round ENT: Mucous membranes moist. NECK: Trachea midline. CARDIOVASCULAR: Regular rate and rhythm RESPIRATORY: Clear to auscultation. Breath sounds equal bilaterally. No wheezes, rales, or rhonchi. GASTROINTESTINAL: Abdomen soft, non-tender EXTREMITIES: No gross deformities. BACK: No flank tenderness. NEURO: AOx3. Clear speech, fast exam is negative. 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 Elevate each leg without drift. SKIN: Warm and dry PSYCH: Not anxious, is cooperative Initial Vital Signs Initial Vital Signs: Vital Signs Temperature 99.8 F H 09/22/24 11:48 Pulse Rate 119 H 09/22/24 11:48 Respiratory Rate 22 09/22/24 11:48 Blood Pressure 185/86 H 09/22/24 11:48 Pulse Oximetry 97 09/22/24 11:48 Oxygen Delivery Method Room Air 09/22/24 11:48 Course Orders Ordered: Discontinued Medications Cefdinir (Cefdinir 300 Mg Capsule) 300 mg PO NOW ONE Stop: 09/22/24 16:21 Last Admin: 09/22/24 16:26 Dose: 300 mg Documented By: LM Vital Signs Vital signs: Vital Signs - 8 hr 09/22/24 11:48 09/22/24 11:51 09/22/24 12:00 Temperature 99.8 F H Pulse Rate 119 H 103 H 99 H Respiratory Rate 22 Blood Pressure 185/86 H Pulse Oximetry 97 98 98 Oxygen Delivery Method Room Air 09/22/24 12:00 09/22/24 12:32 09/22/24 12:33 Temperature Pulse Rate 92 H Respiratory Rate 23 Blood Pressure 158/71 H 163/75 H Pulse Oximetry 91 Oxygen Delivery Method 09/22/24 12:33 09/22/24 13:00 09/22/24 13:00 Temperature Pulse Rate 89 84 Respiratory Rate 19 24 Blood Pressure 152/73 H Pulse Oximetry 97 97 Oxygen Delivery Method 09/22/24 13:37 09/22/24 13:39 09/22/24 13:39 Temperature Pulse Rate 92 H 85 Respiratory Rate 20 Blood Pressure 156/74 H Pulse Oximetry 91 98 Oxygen Delivery Method 09/22/24 14:00 09/22/24 14:00 09/22/24 14:30 Temperature Pulse Rate 79 76 Respiratory Rate 22 24 Blood Pressure 157/74 H Pulse Oximetry 96 96 Oxygen Delivery Method 09/22/24 14:30 09/22/24 15:00 09/22/24 15:01 Temperature Pulse Rate 92 H 90 Respiratory Rate 24 23 Blood Pressure 141/65 H Pulse Oximetry 94 93 Oxygen Delivery Method 09/22/24 15:01 09/22/24 15:30 09/22/24 15:31 Temperature Pulse Rate 79 78 Respiratory Rate 20 21 Blood Pressure 171/85 H Pulse Oximetry 91 89 L Oxygen Delivery Method 09/22/24 15:31 Temperature Pulse Rate Respiratory Rate Blood Pressure 149/73 H Pulse Oximetry Oxygen Delivery Method MDM - Altered Mental Status Lab Data 09/22/24 12:03 09/22/24 12:03 Labs: Lab Results 09/22/24 09/22/24 Range/Units 12:03 15:09 WBC 5.5 (4.5-11.0) X10^3/uL RBC 4.39 (4.0-5.2) X10^6/uL Hgb 13.4 (12.0-16.0) g/dL Hct 38.8 (36-46) % MCV 88.4 (80-100) fL MCH 30.4 (26-34) PG MCHC 34.5 (30-36) % RDW 13.8 (11.6-14.8) % Plt Count 293 (150-400) X10^3/uL Neut % (Auto) 51.2 (50-75) % Lymph % (Auto) 34.6 (25-40) % [place] % (Auto) 8.9 (3-14) % Eos % (Auto) 4.6 H (2-4) % Baso % (Auto) 0.7 (0-2) % Neut # (Auto) 2800 (9702-0606) /uL Lymph # (Auto) 1900 (7321-4013) /uL [place] # (Auto) 500 (0-900) /uL Eos # (Auto) 200 (0-450) /uL Baso # (Auto) 0 (0-100) /uL Sodium 139 (137-145) mmol/L Potassium 4.1 (3.4-5.1) mmol/L Chloride 105 (98-107) mmol/L Carbon Dioxide 25 (22-32) mmol/L BUN 20 H (7-17) mg/dL Creatinine 0.66 (0.52-1.04) mg/dL Estimated GFR > 60 (>60) mL/min BUN/Creatinine Ratio 30.3 H (6-22) Glucose 130 H (70-99) mg/dL Calcium 10.2 (8.4-10.2) mg/dL Total Bilirubin 0.9 (0.2-1.3) mg/dL AST 28 (14-36) IU/L ALT 14 (<35) IU/L Alkaline Phosphatase 84 (38-126) U/L Total Creatine Kinase 59 (30-135) U/L Troponin I < 0.012 (0.01-0.034) ng/mL Total Protein 7.1 (6.3-8.2) g/dL Albumin 4.5 (3.5-5.0) g/dL Globulin 2.6 (1.7-4.1) g/dL Albumin/Globulin Ratio 1.7 (1.0-2.8) Urine Color Yellow Urine Appearance Cloudy Urine pH 6.0 (4.5-8.0) Ur Specific [place] 1.020 (1.000-1.035) Urine Protein 2+ H (Negative) Urine Glucose (UA) Negative (Negative) g/dL Urine Ketones Negative (NEGATIVE) Urine Occult Blood 3+ H (Negative) Urine Nitrate Positive H (Negative) Urine Bilirubin 1+ H (NEGATIVE) Ur Bilirubin Confirm Negative (Negative) Urine Urobilinogen 1.0 (0.2) E.U./dL Ur Leukocyte Esterase 3+ H (NEGATIVE) Urine RBC 10-30/hpf H (0-5/HPF) Urine WBC >100/hpf H (0-5/HPF) Ur Squamous Epith Cells 1-5 /hpf (0-5/HPF) Urine Bacteria Many (>30) H (None) Ur Culture Indicated? Specimen cultured Vol Urine Centrifuged 10ml (spun) Imaging Data CT scan - head: Radiologist's Impression: [address] [address] [address] Scan Report Signed Patient: Re Sidhu MR#: [id number] : 1940 Acct:[id number] Age/Sex: 84 / F Date of Service: 09/22/24 Loc: ED Accession Number: [id number] Procedure: CT head/brain wo con Ordering Provider: Zain Andrade MD PROCEDURE: CT HEAD/BRAIN WO CON INDICATIONS: Confusion TECHNIQUE: Noncontrast 4.5 mm thick angled axial sections acquired from the foramen magnum to the vertex, with coronal and sagittal reformats. For radiation dose reduction, the following was used: automated exposure control, adjustment of mA and/or kV according to patient size. COMPARISON: [facility], CT, CT HEAD/BRAIN WO CON, 10/13/2023, 9:22. FINDINGS: Image quality: Diagnostic. CSF spaces: Basal cisterns are patent. No extra-axial fluid collections. The ventricles are symmetric in size and shape. Brain: No intracranial bleeds or mass effect. There is cerebral volume loss, with resultant ventricular and sulcal prominence. There are periventricular and deep white matter chronic small vessel ischemic changes. There is intracranial internal carotid artery atherosclerosis. Skull and face: Calvarium and visualized facial bones appear intact, without suspicious lesions. Sinuses: Visualized sinuses and mastoids are clear. IMPRESSION: 1. No acute intracranial pathology. 2. Age related volume loss and mild white matter small vessel chronic ischemic changes. Dictated by: Wander Gonzalez M.D. on 09/22/2024 at 12:54 Approved by: Wander Gonzalez M.D. on 09/22/2024 at 12:55 Chest x-ray: Radiologist's Impression: [address] [address] XRay Report Signed Patient: Re Sidhu MR#: [id number] : 1940 Acct:[id number] Age/Sex: 84 / F Date of Service: 09/22/24 Loc: ED Accession Number: [id number] Procedure: XR chest 1V Ordering Provider: Zain Andrade MD PROCEDURE: XR CHEST 1V INDICATIONS: Cough TECHNIQUE: One view of the chest was acquired. COMPARISON: [facility], CR, XR CHEST 1V, 10/13/2023, 9:14. [facility], CR, XR CHEST 1V, 02/14/2023, 14:10. FINDINGS: Surgical changes and devices: Surgical clips project over the left mediastinum. Lungs and pleura: Lungs are clear. No pleural effusions or pneumothorax. Mediastinum: Mediastinal contours appear normal. Heart size is normal. Bones and chest wall: No suspicious bony lesions. Overlying soft tissues appear unremarkable. IMPRESSION: No acute cardiopulmonary abnormality is seen. Dictated by: Alvin Pettit M.D. on 09/22/2024 at 12:29 Approved by: Alvin Pettit M.D. on 09/22/2024 at 12:[address] [facility] Narrative Medical decision making narrative: Patient brought in by ambulance from home. Blood sugar 137. had called ambulance because in the last 40 hours has had confusion and walking outdoors and requiring coaxing to come back in. Has had visual hallucinations as well. Family state she has behaved this way in the past with UTIs. No fall or injury. Patient is awake alert oriented self and date of only. She is following commands. Patient denies any headache chest pain abdominal pain back pain at this time. She does admit increased urination recently. Denies abdominal pain After history and exam, CBC CMP urinalysis CT head EKG [facility] Medical records reviewed: No recent visit for this complaint. Differential considered: Includes but not limited to UTI stroke dehydration dementia Lab Test results independently reviewed as above. Pertinent findings: WBC 5.5 hemoglobin 13.4 sodium 139 potassium 4.1 BUN 20 creatinine 0.66 troponin less than 0.012 urinalysis positive nitrate positive leukocyte esterase greater than 100 WBC many bacteria Independently reviewed EKG sinus rhythm rate [address] elevation or depression Imaging studies independently reviewed: CT head chest x-ray no acute finding Consultations: None indicated at this time Re-evaluations: 4:23 p.m.. and son and [id number] has been at bedside. They have suspicion that patient may have another UTI. This has happened before with UTIs. She is on daily maintenance Keflex for UTIs. Patient has over the the past 1 year has become more confused and primary care is following for dementia. Reviewed results with them. Patient does have UTI and they do agree for treatment. Patient behaving at baseline at this time. They desire discharge home. Patient sees Dr Dill for primary care Discussion: Appropriate for discharge home. Exam is reassuring. Patient at baseline at time of discharge. UTI is likely source of patient's confusion. states she had 1 episode today of looking for the neighbor, other than that the preceding days she has been at baseline behavior. Diagnosis: Acute UTI Discharge Plan Departure Patient Disposition: Home Clinical Impression: Acute UTI Instructions: DI for Urinary Tract Infection (UTI) Activity Restrictions/Additional Instructions: You are being treated for urinary tract infection. First dose was given here today. 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 Please see your family doctor and urologist within a week for recheck/re-evaluation. Keep well hydrated. Return if worse if any questions or concerns. Please discontinue your daily maintenance antibiotic while you are taking the new antibiotic. You may resume after completion of the currently prescribed antibiotic. Prescriptions: New cefdinir 300 mg capsule 300 mg PO BID Qty: 10 0RF No Action OMEPRAZOLE 20 mg PO Q DAY Qty: 0 Pravastatin Sodium (Pravachol) 40 mg PO Q DAY Qty: 0 CALCIUM ACETATE (Phoslo) 1,200 mg PO Q DAY Qty: 0 CHOLECALCIFEROL (VITAMIN D3) (Vitamin D3) 2,000 iu PO Q DAY Qty: 0 [FISH OIL] 1,000 mg Q DAY Qty: 0 fosfomycin tromethamine 3 gram packet 1 packet PO Q OTHER DAY Qty: 1 0RF ciprofloxacin HCl 500 mg tablet 500 mg PO BID Qty: 20 0RF Referrals: Henrique Dill MD [Primary Care Provider, Family Practice] Stand Alone Forms: Patient Portal/API
--- NOTE | 2024-09-22 12:07 | EKG_ITS ---
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
[2024-09-22 12:13] LABS: Add Manual Diff / Slide Review NO; Basophils Absolute Auto 0 /uL (0-100); Basophils Percent Auto 0.7 % (0-2); Eosinophils Absolute Auto 200 /uL (0-450); Eosinophils Percent Auto 4.6 % (2-4); Hematocrit 38.8 % (36-46); Hemoglobin 13.4 g/dL (12.0-16.0); Lymphocytes Absolute Auto 1900 /uL (1100-4500); Lymphocytes Percent Auto 34.6 % (25-40); Mean Corpuscular HGB Conc 34.5 % (30-36); Mean Corpuscular Hemoglobin 30.4 PG (26-34); Mean Corpuscular Volume 88.4 fL (80-100); Monocytes Absolute Auto 500 /uL (0-900); Monocytes Percent Auto 8.9 % (3-14); Neutrophils Absolute Auto 2800 /uL (1500-7000); Neutrophils Percent Auto 51.2 % (50-75); Platelet Count 293 X10^3/uL (150-400); Red Blood Cell Count 4.39 X10^6/uL (4.0-5.2); Red Cell Distribution Width 13.8 % (11.6-14.8); White Blood Cell Count 5.5 X10^3/uL (4.5-11.0)
[2024-09-22 12:25] LABS: Alanine Aminotransferase 14 IU/L (<35); Albumin 4.5 g/dL (3.5-5.0); Albumin Globulin Ratio 1.7 (1.0-2.8); Alkaline Phosphatase 84 U/L (38-126); Aspartate Aminotransferase 28 IU/L (14-36); BUN Creatinine Ratio 30.3 (6-22); Bilirubin Total 0.9 mg/dL (0.2-1.3); Blood Urea Nitrogen 20 mg/dL (7-17); Calcium 10.2 mg/dL (8.4-10.2); Carbon Dioxide 25 mmol/L (22-32); Chloride 105 mmol/L (98-107); Creatine Kinase 59 U/L (30-135); Estimated Glomerular Filt Rate > 60 mL/min (>60); Globulin 2.6 g/dL (1.7-4.1); Glucose 130 mg/dL (70-99); HEMOLYSIS 19 (0-50); Potassium 4.1 mmol/L (3.4-5.1); Sodium 139 mmol/L (137-145); Total Protein 7.1 g/dL (6.3-8.2)
[2024-09-22 12:36] LABS: Troponin I < 0.012 ng/mL (0.01-0.034)
[2024-09-22 15:25] LABS: Appearance Urine UA CLOUDY; Bilirubin Urine UA 1+ (NEGATIVE); Color Urine UA YELLOW; Glucose Urine UA NEGATIVE (Negative); Ketones Urine UA NEGATIVE (NEGATIVE); Nitrite Urine UA POSITIVE (Negative); Occult Blood Urine UA 3+ (Negative); Protein Urine UA 2+ (Negative)
[2024-09-22 15:26] LABS: Leukocyte Esterase Urine UA 3+ (NEGATIVE)
[2024-09-22 15:30] LABS: Urine Volume 10mL (spun)
[2024-09-22 15:31] LABS: Bacteria Urine Many (>30); RBC Urine 10-30/HPF (0-5/HPF); Squamous Epithelial Cell Urine 1-5 /HPF (0-5/HPF); WBC Urine >100/HPF (0-5/HPF)
[2024-09-22 15:32] LABS: Culture Indicated Urine Specimen Cultured; Ictotest Urine Negative (Negative)
[2024-09-22] MEDS: CEFDINIR 300 MG CAPSULE PO (16:26)
== END 2024-09-22 16:48 | disposition home or self-care (01) ==
PROVIDERS: Emergency Provider Emergency Medicine; PCP Family Medicine
DX: N39.0 Urinary tract infection, site not specified (principal); R44.1 Visual hallucinations
CPT/HCPCS: 36415; 51798; 70450; 71045; 80053; 81001; 82550; 84484; 85025; 87077; 87086; 87186; 93005; 99284

== ENCOUNTER → 2025-01-03 09:58 | Outpatient (CLI) | payer MEDICARE, OTHER, SELFPAY ==
[2020-04-20 19:52] VITALS: BMI 32.8
== END ==
PROVIDERS: PCP Family Medicine; Referring Provider Urology; Visit Provider Urology
DX: N39.41 Urge incontinence (principal)
CPT/HCPCS: 87077; 87086; 87186

== ENCOUNTER → 2025-01-12 14:00 | Outpatient (CLI) | payer MEDICARE, OTHER, SELFPAY ==
[2020-04-20 19:52] VITALS: BMI 32.8
[2025-01-12 15:49] LABS: Hemoglobin A1C% w Est Avg Glu 5.5 % (4.0-6.0)
[2025-01-12 16:16] LABS: Alanine Aminotransferase 12 IU/L (<35); Albumin 4.1 g/dL (3.5-5.0); Albumin Globulin Ratio 1.7 (1.0-2.8); Alkaline Phosphatase 80 U/L (38-126); Blood Urea Nitrogen 23 mg/dL (7-17); Calcium 10.0 mg/dL (8.4-10.2); Carbon Dioxide 28 mmol/L (22-32); Chloride 103 mmol/L (98-107); Cholesterol 111 mg/dL (140-199); Estimated Glomerular Filt Rate > 60 mL/min (>60); Globulin 2.4 g/dL (1.7-4.1); Glucose 125 mg/dL (70-99); HDL Cholesterol 34 mg/dL (40-60); HEMOLYSIS < 15 (0-50); Potassium 4.4 mmol/L (3.4-5.1); Sodium 139 mmol/L (137-145); Total Protein 6.5 g/dL (6.3-8.2); Triglycerides 164 mg/dL (35-150)
[2025-01-12 16:45] LABS: TSH w/ Reflex to FT4 0.14 uIU/mL (0.47-4.68)
[2025-01-12 17:27] LABS: Free T4, Direct Thyroxine 1.57 ng/dL (0.78-2.19)
== END ==
PROVIDERS: PCP Family Medicine; Referring Provider Family Medicine; Visit Provider Family Medicine
DX: E11.59 Type 2 diabetes mellitus with other circulatory complications (principal); E03.9 Hypothyroidism, unspecified; E11.65 Type 2 diabetes mellitus with hyperglycemia; E11.69 Type 2 diabetes mellitus with other specified complication; E78.5 Hyperlipidemia, unspecified; I10 Essential (primary) hypertension; I15.2 Hypertension secondary to endocrine disorders
CPT/HCPCS: 36415; 80053; 80061; 83036; 84439; 84443